=== PATIENT | female | born 1965 | race Caucasian/White ===

== ENCOUNTER 2019-08-24 19:38 | Inpatient (IN) | payer MEDICAID, OTHER ==
[2019-08-24] MEDS ORDERED: Ketorolac 30 MG/ML SDV IVPUSH ONE (20:40)
[2019-08-24] MEDS ORDERED: Sodium Chloride 0.9% 1,000 ML IV ONE ×2 (20:40)
[2019-08-24 20:43] LABS: BLOOD UREA NITROGEN,BUN 24 mg/dL (7.0-18.0); CARBON DIOXIDE,CO2 23.5 mmol/L (21.0-32.0); CHLORIDE,CL 98 mmol/L (98-107); GLUCOSE RANDOM 159 mg/dL (74-106); LIPASE 36 U/L (73-393); POTASSIUM,K 3.6 mmol/L (3.5-5.1); SODIUM,NA 134 mmol/L (136-145)
[2019-08-24] MEDS ORDERED: cefTRIAXone 1 GM in Premix Bag 1 BAG IV ONE (21:41)
--- NOTE | 2019-08-24 21:55 | CR ---
INDICATION: Shortness of breath. TECHNIQUE: PA and lateral chest x-ray. FINDINGS: Very shallow inspiration. Heart is mildly enlarged but is accentuated by the shallow inspiration and a fat pad at the cardiac apex. Pulmonary vascularity within normal limits. No focal dense infiltrate or consolidation in either lung. Chest otherwise unremarkable. Dictated by Nadeem Kimble MD @ Aug 24 2019 9:54PM Signed by Dr. Nadeem Kimble @ Aug 24 2019 9:55PM
--- NOTE | 2019-08-24 22:04 | EDM.PDOC ---
ED HPI GENERAL MEDICAL PROBLEM - General Chief Complaint: Gastrointestinal Problem Stated Complaint: fever Time Seen by Provider: 08/24/19 19:57 - History of Present Illness INITIAL COMMENTS - FREE TEXT/NARRATIVE: HPI 54-year-old morbidly obese female presents for evaluation of one week of fevers , myalgias, and generalized malaise. No recent travel, no rashes. No cough, dysuria, headache, neck stiffness, back pain. Continues to take PO well pass urine, flatus, stool baseline. M/S/F/SocHx notable for: please see HPI; remainder reviewed with patient and in chart. ROS: Negative constitutional, eye, cardiovascular, pulmonary, GI, , MSK, skin , neurologic, psychiatric, endocrine unless noted in the HPI. Exam HR 125, RR 20, BP 128/67, T 36.5C, SaO2 96% on room air. Gen: pleasant, nontoxic-appearing, resting comfortably. HEENT: NC, AT, PEERL, EOMI. Posterior oropharynx without erythema, swelling, exudate, or postnasal drip. Neck supple with full range of motion, no posterior or anterior cervical chain lymphadenopathy bilaterally. Pulm: Clear to auscultation bilaterally, normal work of breathing. Card: Regular rate and rhythm with no murmurs, rubs, or gallops. GI: ND, nontender to palpation throughout all quadrants, no focal tenderness palpation of McBurneys point, negative [place] sign, no rebound or guarding. : No right sided CVA tenderness to percussion, no left sided CVA tenderness to percussion. No suprapubic tenderness to palpation. MSK: No visible deformities, strength and tone WNL. No C, T, L spine tenderness palpation. Skin: Normal color with no rashes, petechiae, or insect bites. Neuro: alert and oriented 3, no facial asymmetry, vision and hearing WNL. Psych: Mood and affect appropriate. Labs / Imaging (pertinent): EKG: SR 101 bpm, no ST segment elevations or depressions, no LBBB. WBC 16.4, HB 13.4, lactic acid 2.5, sodium 134, potassium 3.6, glucose 159, AST 35, ALT 40, alkaline phosphatase 132, troponin <0.050. Influenza A & B negative, rapid strep negative. UA - positive nitrate, large leukocyte esterase. CXR: no acute cardiopulmonary abnormalities. MDM Previous chart, nursing note, and vitals reviewed. A: 54-year-old morbidly obese female presents for evaluation of one week of fevers, myalgias, and generalized malaise. DDx: UTI, pyelonephritis, pneumonia, meningitis, bacteremia, meningitis (viral vs bacterial)], HIV, tick borne diseases (RMSF, Lyme disease, anaplasmosis, R. parkeri), tularemia, coccidioidomycosis. Evaluation: patient with pyelonephritis, meets CMS criteria for sepsis. 1 L NS, and 1 g ceftriazone given. Chest x-ray without evidence of pneumonia. Abdominal exam benign, no features suggestive of bacteremia, meningitis, or spinal infection. Disposition: admitted for further care. Impression: pyelonephritis, sepsis (please reference below for remainder of encounter information) Critical Care Time Organ system(s): Renal Intervention: Assessment of the patient, interpretation of studies, communication related to patient care. Time: 30 minutes were spent directly related to patient care exclusive of separately billed procedures - Related Data Allergies Allergy/AdvReac Type Severity Reaction Status Date / Time sulfamethoxazole Allergy Hives Verified 08/24/19 19:39 [From Bactrim] trimethoprim [From Bactrim] Allergy Hives Verified 08/24/19 19:39 Home Meds: Home Meds Acetaminophen 325 mg PO ASDIRECTED 08/24/19 [History] Amitriptyline HCl 100 mg PO BEDTIME 08/24/19 [History] Citalopram Hydrobromide [Celexa] 40 mg PO DAILY 08/24/19 [History] Diclofenac Sodium [Voltaren] 4 gm TP ASDIRECTED 08/24/19 [History] Multivitamin [Multivitamins] 1 each PO DAILY 08/24/19 [History] Omeprazole 20 mg PO DAILY 08/24/19 [History] Pregabalin [Lyrica] 100 mg PO DAILY 08/24/19 [History] Pyridoxine HCl (Vitamin B6) [Pyridoxine HCl] 100 mg PO DAILY 08/24/19 [History] atorvaSTATin [Lipitor] 10 mg PO BEDTIME 08/24/19 [History] buPROPion HCl [Bupropion Xl] 150 mg PO DAILY 08/24/19 [History] Past Medical History HEENT History: Reports: None Cardiovascular History: Reports: None Respiratory History: Reports: None Genitourinary History: Reports: None Musculoskeletal History: Reports: None Neurological History: Reports: None Psychiatric History: Reports: Anxiety, Depression Endocrine/Metabolic History: Reports: None Hematologic History: Reports: None Immunologic History: Reports: None Oncologic (Cancer) History: Reports: None Dermatologic History: Reports: None - Infectious Disease History Infectious Disease History: Reports: Chicken Pox - Past Surgical History GI Surgical History: Reports: Bariatric Procedure, Cholecystectomy Other GI Surgeries/Procedures: gastric bypass Female Surgical History: Reports: D&C, Tubal Ligation Social & Family History - Family History Family Medical History: Noncontributory - Tobacco Use Smoking Status *Q: Never Smoker - Recreational Drug Use Recreational Drug Use: No ED ROS GENERAL - Review of Systems Review Of Systems: See Below ED EXAM, GENERAL - Physical Exam Exam: See Below Course - Vital Signs Last Recorded V/S: Last Vital Signs Temp 38.0 C 08/24/19 21:40 Pulse 115 H 08/24/19 21:40 Resp 24 H 08/24/19 21:40 BP 105/78 08/24/19 21:40 Pulse Ox 95 08/24/19 21:40 - Orders/Labs/Meds Orders: Active Orders 24 hr Category Date Time Status EKG 12 Lead [EKG Documentation Completion] [RC] STAT Care 08/24/19 20:17 Active CULTURE BLOOD [BC] Stat Lab 08/24/19 20:53 Received CULTURE BLOOD [BC] Stat Lab 08/24/19 21:14 Received CULTURE STREP A CONFIRMATION [RM] Stat Lab 08/24/19 19:42 Results STREP SCRN A RAPID W CULT CONF [RM] Stat Lab 08/24/19 19:42 Results cefTRIAXone [Rocephin in Dextrose,Iso-Osm 1 GM/50 ML] 1 Med 08/24/19 21:41 Active gm Premix Bag 1 bag IV ONETIME Blood Culture x2 Reflex Set [OM.PC] Stat Oth 08/24/19 20:36 Ordered Medication Orders Ceftriaxone Sodium/Dextrose 1 (gm/ Premix) 50 mls @ 100 mls/hr IV ONETIME ONE Stop: 08/24/19 22:10 Labs: Laboratory Tests 08/24/19 08/24/19 08/24/19 Range/Units 20:00 20:00 20:00 WBC 16.39 H (4.0-11.0) K/uL RBC 4.47 (4.30-5.90) M/uL Hgb 13.4 (12.0-16.0) g/dL Hct 39.7 (36.0-46.0) % MCV 88.8 (80.0-98.0) fL MCH 30.0 (27.0-32.0) pg MCHC 33.8 (31.0-37.0) g/dL RDW Std Deviation 45.8 (28.0-62.0) fl RDW Coeff of Aristeo 14 (11.0-15.0) % Plt Count 168 (150-400) K/uL MPV 10.20 (7.40-12.00) fL Neut % (Auto) 89.4 H (48.0-80.0) % Lymph % (Auto) 4.6 L (16.0-40.0) % [place] % (Auto) 5.9 (0.0-15.0) % Eos % (Auto) 0.0 (0.0-7.0) % Baso % (Auto) 0.1 (0.0-1.5) % Neut # (Auto) 14.7 H (1.4-5.7) K/uL Lymph # (Auto) 0.8 (0.6-2.4) K/uL [place] # (Auto) 1.0 H (0.0-0.8) K/uL Eos # (Auto) 0.0 (0.0-0.7) K/uL Baso # (Auto) 0.0 (0.0-0.1) K/uL Nucleated RBC % 0.0 /100WBC Nucleated RBCs # 0 K/uL Lactate 2.5 H* (0.20-2.00) mmol/L Sodium 134 L (136-145) mmol/L Potassium 3.6 (3.5-5.1) mmol/L Chloride 98 (98-107) mmol/L Carbon Dioxide 23.5 (21.0-32.0) mmol/L BUN 24 H (7.0-18.0) mg/dL Creatinine 1.9 H (0.6-1.0) mg/dL Est Cr Clr Drug Dosing 31.32 mL/min Estimated GFR (MDRD) 27.4 ml/min Glucose 159 H (74-106) mg/dL Calcium 7.9 L (8.5-10.1) mg/dL Total Bilirubin 0.6 (0.2-1.0) mg/dL AST 35 (15-37) IU/L ALT 40 (14-63) IU/L Alkaline Phosphatase 132 H (46-116) U/L Troponin I < 0.050 (0.000-0.056) ng/mL Total Protein 6.9 (6.4-8.2) g/dL Albumin 2.6 L (3.4-5.0) g/dL Globulin 4.3 H (2.6-4.0) g/dL Albumin/Globulin Ratio 0.6 L (0.9-1.6) Lipase 36 L (73-393) U/L Urine Color Urine Appearance Urine pH (5.0-8.0) Ur Specific [place] (1.001-1.035) Urine Protein (NEGATIVE) mg/dL Urine Glucose (UA) (NEGATIVE) mg/dL Urine Ketones (NEGATIVE) mg/dL Urine Occult Blood (NEGATIVE) Urine Nitrite (NEGATIVE) Urine Bilirubin (NEGATIVE) Urine Urobilinogen (<2.0) EU/dL Ur Leukocyte Esterase (NEGATIVE) Urine RBC (0-2/HPF) Urine WBC (0-5/HPF) Ur Epithelial Cells (NONE-FEW) Urine Bacteria (NEGATIVE) 08/24/19 Range/Units 21:20 WBC (4.0-11.0) K/uL RBC (4.30-5.90) M/uL Hgb (12.0-16.0) g/dL Hct (36.0-46.0) % MCV (80.0-98.0) fL MCH (27.0-32.0) pg MCHC (31.0-37.0) g/dL RDW Std Deviation (28.0-62.0) fl RDW Coeff of Aristeo (11.0-15.0) % Plt Count (150-400) K/uL MPV (7.40-12.00) fL Neut % (Auto) (48.0-80.0) % Lymph % (Auto) (16.0-40.0) % [place] % (Auto) (0.0-15.0) % Eos % (Auto) (0.0-7.0) % Baso % (Auto) (0.0-1.5) % Neut # (Auto) (1.4-5.7) K/uL Lymph # (Auto) (0.6-2.4) K/uL [place] # (Auto) (0.0-0.8) K/uL Eos # (Auto) (0.0-0.7) K/uL Baso # (Auto) (0.0-0.1) K/uL Nucleated RBC % /100WBC Nucleated RBCs # K/uL Lactate (0.20-2.00) mmol/L Sodium (136-145) mmol/L Potassium (3.5-5.1) mmol/L Chloride (98-107) mmol/L Carbon Dioxide (21.0-32.0) mmol/L BUN (7.0-18.0) mg/dL Creatinine (0.6-1.0) mg/dL Est Cr Clr Drug Dosing mL/min Estimated GFR (MDRD) ml/min Glucose (74-106) mg/dL Calcium (8.5-10.1) mg/dL Total Bilirubin (0.2-1.0) mg/dL AST (15-37) IU/L ALT (14-63) IU/L Alkaline Phosphatase (46-116) U/L Troponin I (0.000-0.056) ng/mL Total Protein (6.4-8.2) g/dL Albumin (3.4-5.0) g/dL Globulin (2.6-4.0) g/dL Albumin/Globulin Ratio (0.9-1.6) Lipase (73-393) U/L Urine Color YELLOW Urine Appearance CLOUDY Urine pH 6.0 (5.0-8.0) Ur Specific [place] 1.025 (1.001-1.035) Urine Protein 100 H (NEGATIVE) mg/dL Urine Glucose (UA) NEGATIVE (NEGATIVE) mg/dL Urine Ketones NEGATIVE (NEGATIVE) mg/dL Urine Occult Blood MODERATE H (NEGATIVE) Urine Nitrite POSITIVE H (NEGATIVE) Urine Bilirubin NEGATIVE (NEGATIVE) Urine Urobilinogen 1.0 (<2.0) EU/dL Ur Leukocyte Esterase LARGE H (NEGATIVE) Urine RBC 2-5 (0-2/HPF) Urine WBC 35-45 (0-5/HPF) Ur Epithelial Cells OCCASIONAL (NONE-FEW) Urine Bacteria 2+ H (NEGATIVE) Meds: Medications Generic Name Dose Route Start Last Admin Trade Name Freq PRN Reason Stop Dose Admin Ceftriaxone Sodium/Dextrose 1 50 mls @ 100 mls/hr 08/24/19 21:41 gm/ Premix IV 08/24/19 22:10 ONETIME ONE Discontinued Medications Generic Name Dose Route Start Last Admin Trade Name Freq PRN Reason Stop Dose Admin Sodium Chloride 1,000 mls @ 999 mls/hr 08/24/19 20:40 08/24/19 20:42 Normal Saline IV 08/24/19 21:40 Not Given .Bolus ONE Sodium Chloride 1,000 mls @ 1,000 mls/hr 08/24/19 20:40 08/24/19 20:52 Normal Saline IV 08/24/19 21:39 1,000 mls/hr .Bolus ONE Administration Ketorolac Tromethamine 30 mg 08/24/19 20:40 08/24/19 20:53 Toradol IVPUSH 08/24/19 20:41 30 mg ONETIME ONE Administration Departure - Departure Time of Disposition: 22:04 Disposition: Admitted As Inpatient 65 Clinical Impression: Sepsis - Discharge Information Referrals: PCP,Unknown [Primary Care Provider] - Sepsis Event Note - Evaluation Sepsis Screening Result: No Definite Risk - Focused Exam Vital Signs: Vital Signs Temp Pulse Resp BP Pulse Ox 08/24/19 21:40 38.0 C 115 H 24 H 105/78 95 08/24/19 20:37 39.4 C H 115 H 22 H 103/54 L 96 08/24/19 19:39 36.5 C 125 H 20 128/67 96 Date Exam was Performed: 08/24/19 Time Exam was Performed: 22:03 - My Orders Last 24 Hours: My Active Orders 08/24/19 20:17 EKG 12 Lead [EKG Documentation Completion] [RC] STAT 08/24/19 20:36 Blood Culture x2 Reflex Set [OM.PC] Stat 08/24/19 20:53 CULTURE BLOOD [BC] Stat 08/24/19 21:14 CULTURE BLOOD [BC] Stat 08/24/19 21:41 cefTRIAXone [Rocephin in Dextrose,Iso-Osm 1 GM/50 ML] 1 gm Premix Bag 1 bag IV ONETIME - Assessment/Plan Last 24 Hours: My Active Orders 08/24/19 20:17 EKG 12 Lead [EKG Documentation Completion] [RC] STAT 08/24/19 20:36 Blood Culture x2 Reflex Set [OM.PC] Stat 08/24/19 20:53 CULTURE BLOOD [BC] Stat 08/24/19 21:14 CULTURE BLOOD [BC] Stat 08/24/19 21:41 cefTRIAXone [Rocephin in Dextrose,Iso-Osm 1 GM/50 ML] 1 gm Premix Bag 1 bag IV ONETIME
[2019-08-24] MEDS ORDERED: Morphine 2 MG/ML SYRINGE IVPUSH PRN (23:16)
[2019-08-24] MEDS ORDERED: Albuterol/Ipratropium 3.0-0.5 MG/3 ML Neb Soln NEB PRN (23:16)
[2019-08-24] MEDS ORDERED: Ondansetron 4 MG/2 ML SDV IVPUSH PRN (23:16)
[2019-08-24] MEDS ORDERED: Sodium Chloride 0.9% 1,000 ML IV SCH (23:30)
[2019-08-25] MEDS ORDERED: Vancomycin 2 GM in Sodium Chloride 0.9% 500 ML IV SCH ×2
[2019-08-25] MEDS: Piperacillin/Tazobactam 3.375 GM in Sodium Chloride 0.9% 50 ML IV SCH ×5 (00:07→23:48)
[2019-08-25] MEDS ORDERED: Sodium Chloride 0.9% 1,000 ML IV SCH (02:00)
[2019-08-25 06:28] LABS: CARBON DIOXIDE,CO2 21.5 mmol/L (21.0-32.0); POTASSIUM,K 3.3 mmol/L (3.5-5.1)
[2019-08-25] MEDS ORDERED: Potassium Chloride 20 MEQ Tab.ER PO ONE (07:59)
--- NOTE | 2019-08-25 08:02 | PCM.HP.2 ---
<Leora Nolasco - Last Filed: 08/25/19 12:54> H&P History of Present Illness - General Date of Service: 08/25/19 Admit Problem/Dx: Admission Diagnosis/Problem Admission Diagnosis/Problem Sepsis - History of Present Illness Initial Comments - Free Text/Narative: Patient is a 54-year-old female with a significant past medical history of morbid obesity, depression/anxiety, status post gastric bypass, chronic pain: presenting after 1 week of fevers chills and dysuria. Patient presented to the ED yesterday secondary to worsening chills and pain. ED course: UA positive for nitrites and large leukocyte esterase, chest x-ray negative.White count 16 and lactate of 2.5. Patient received 1 L nasal normal saline bolus and given ceftriaxone Bedside: Patient is still complaining of pain however complaining of discomfort in her hips and her back which is a chronic issue. Mild dysuria denies any fevers, chills. - Related Data Allergies/Adverse Reactions: Allergies Allergy/AdvReac Type Severity Reaction Status Date / Time sulfamethoxazole Allergy Hives Verified 08/24/19 23:49 [From Bactrim] trimethoprim [From Bactrim] Allergy Hives Verified 08/24/19 23:49 Home Medications: Home Meds Acetaminophen 325 mg PO ASDIRECTED 08/24/19 [History] Amitriptyline HCl 100 mg PO BEDTIME 08/24/19 [History] Citalopram Hydrobromide [Celexa] 40 mg PO DAILY 08/24/19 [History] Diclofenac Sodium [Voltaren] 4 gm TP ASDIRECTED 08/24/19 [History] Multivitamin [Multivitamins] 1 each PO DAILY 08/24/19 [History] Omeprazole 20 mg PO DAILY 08/24/19 [History] Pregabalin [Lyrica] 100 mg PO DAILY 08/24/19 [History] Pyridoxine HCl (Vitamin B6) [Pyridoxine HCl] 100 mg PO DAILY 08/24/19 [History] atorvaSTATin [Lipitor] 10 mg PO BEDTIME 08/24/19 [History] buPROPion HCl [Bupropion Xl] 150 mg PO DAILY 08/24/19 [History] Acetaminophen [Tylenol] 650 mg PO Q6H PRN tablet 08/28/19 [Rx] Ertapenem [INVanz] 1 gm IV DAILY #5 adv 08/28/19 [Rx] metFORMIN [Glucophage XR] 500 mg PO DAILY 14 Days #14 tab.er 08/28/19 [Rx] Past Medical History HEENT History: Reports: None Cardiovascular History: Reports: None Respiratory History: Reports: None Genitourinary History: Reports: None Musculoskeletal History: Reports: None Neurological History: Reports: None Psychiatric History: Reports: Anxiety, Depression Endocrine/Metabolic History: Reports: None Hematologic History: Reports: None Immunologic History: Reports: None Oncologic (Cancer) History: Reports: None Dermatologic History: Reports: None - Infectious Disease History Infectious Disease History: Reports: Chicken Pox - Past Surgical History GI Surgical History: Reports: Bariatric Procedure, Cholecystectomy Other GI Surgeries/Procedures: gastric bypass Female Surgical History: Reports: D&C, Tubal Ligation Social & Family History - Family History Family Medical History: Noncontributory - Tobacco Use Smoking Status *Q: Never Smoker - Caffeine Use Caffeine Use: Reports: Soda - Recreational Drug Use Recreational Drug Use: No H&P Review of Systems - Review of Systems: Review Of Systems: See Below General: Denies: Fever, Chills, Malaise HEENT: Reports: No Symptoms Pulmonary: Reports: No Symptoms. Denies: Cough Cardiovascular: Reports: No Symptoms Gastrointestinal: Reports: Diarrhea, Nausea. Denies: Constipation, Decreased Appetite Genitourinary: Reports: Dysuria. Denies: Frequency, Urgency, Incontinence, Hematuria Musculoskeletal: Reports: Back Pain, Joint Pain Skin: Reports: No Symptoms Psychiatric: Reports: No Symptoms Neurological: Denies: Headache Exam - Exam Exam: See Below - Vital Signs Vital Signs: Last Vital Signs Temp 97.4 F 08/25/19 04:00 Pulse 111 H 08/25/19 04:00 Resp 22 H 08/25/19 04:00 BP 125/62 08/25/19 04:00 Pulse Ox 95 08/25/19 04:00 Weight: 149.8 kg - Exam General: Alert, Oriented, Cooperative HEENT: EOMI Neck: Supple, Trachea Midline Lungs: Clear to Auscultation, Normal Respiratory Effort Cardiovascular: Regular Rate, Regular Rhythm GI/Abdominal Exam: Soft, Non-Tender Extremities: Normal Inspection Skin: Warm, Dry Neuro Extensive - Mental Status: Alert, Oriented x3 (morbidly obese female ) - Patient Data Lab Results Last 24 hrs: Laboratory Results - last 24 hr 08/24/19 08/24/19 08/24/19 Range/Units 20:00 20:00 20:00 WBC 16.39 H (4.0-11.0) K/uL RBC 4.47 (4.30-5.90) M/uL Hgb 13.4 (12.0-16.0) g/dL Hct 39.7 (36.0-46.0) % MCV 88.8 (80.0-98.0) fL MCH 30.0 (27.0-32.0) pg MCHC 33.8 (31.0-37.0) g/dL RDW Std Deviation 45.8 (28.0-62.0) fl RDW Coeff of Aristeo 14 (11.0-15.0) % Plt Count 168 (150-400) K/uL MPV 10.20 (7.40-12.00) fL Neut % (Auto) 89.4 H (48.0-80.0) % Lymph % (Auto) 4.6 L (16.0-40.0) % Mower % (Auto) 5.9 (0.0-15.0) % Eos % (Auto) 0.0 (0.0-7.0) % Baso % (Auto) 0.1 (0.0-1.5) % Neut # (Auto) 14.7 H (1.4-5.7) K/uL Lymph # (Auto) 0.8 (0.6-2.4) K/uL Mower # (Auto) 1.0 H (0.0-0.8) K/uL Eos # (Auto) 0.0 (0.0-0.7) K/uL Baso # (Auto) 0.0 (0.0-0.1) K/uL Nucleated RBC % 0.0 /100WBC Nucleated RBCs # 0 K/uL Lactate 2.5 H* (0.20-2.00) mmol/L Sodium 134 L (136-145) mmol/L Potassium 3.6 (3.5-5.1) mmol/L Chloride 98 (98-107) mmol/L Carbon Dioxide 23.5 (21.0-32.0) mmol/L BUN 24 H (7.0-18.0) mg/dL Creatinine 1.9 H (0.6-1.0) mg/dL Est Cr Clr Drug Dosing 31.32 mL/min Estimated GFR (MDRD) 27.4 ml/min Glucose 159 H (74-106) mg/dL Calcium 7.9 L (8.5-10.1) mg/dL Phosphorus (2.6-4.7) mg/dL Magnesium (1.8-2.4) mg/dL Total Bilirubin 0.6 (0.2-1.0) mg/dL AST 35 (15-37) IU/L ALT 40 (14-63) IU/L Alkaline Phosphatase 132 H (46-116) U/L Troponin I < 0.050 (0.000-0.056) ng/mL Total Protein 6.9 (6.4-8.2) g/dL Albumin 2.6 L (3.4-5.0) g/dL Globulin 4.3 H (2.6-4.0) g/dL Albumin/Globulin Ratio 0.6 L (0.9-1.6) Lipase 36 L (73-393) U/L Urine Color Urine Appearance Urine pH (5.0-8.0) Ur Specific [place] (1.001-1.035) Urine Protein (NEGATIVE) mg/dL Urine Glucose (UA) (NEGATIVE) mg/dL Urine Ketones (NEGATIVE) mg/dL Urine Occult Blood (NEGATIVE) Urine Nitrite (NEGATIVE) Urine Bilirubin (NEGATIVE) Urine Urobilinogen (<2.0) EU/dL Ur Leukocyte Esterase (NEGATIVE) Urine RBC (0-2/HPF) Urine WBC (0-5/HPF) Ur Epithelial Cells (NONE-FEW) Urine Bacteria (NEGATIVE) 08/24/19 08/25/19 08/25/19 Range/Units 21:20 00:20 06:00 WBC 7.88 (4.0-11.0) K/uL RBC 4.45 (4.30-5.90) M/uL Hgb 12.9 (12.0-16.0) g/dL Hct 39.6 (36.0-46.0) % MCV 89.0 (80.0-98.0) fL MCH 29.0 (27.0-32.0) pg MCHC 32.6 (31.0-37.0) g/dL RDW Std Deviation 46.3 (28.0-62.0) fl RDW Coeff of Aristeo 14 (11.0-15.0) % Plt Count 160 (150-400) K/uL MPV 10.20 (7.40-12.00) fL Neut % (Auto) 92.5 H (48.0-80.0) % Lymph % (Auto) 6.1 L (16.0-40.0) % Mower % (Auto) 1.3 (0.0-15.0) % Eos % (Auto) 0.0 (0.0-7.0) % Baso % (Auto) 0.1 (0.0-1.5) % Neut # (Auto) 7.3 H (1.4-5.7) K/uL Lymph # (Auto) 0.5 L (0.6-2.4) K/uL Mower # (Auto) 0.1 (0.0-0.8) K/uL Eos # (Auto) 0.0 (0.0-0.7) K/uL Baso # (Auto) 0.0 (0.0-0.1) K/uL Nucleated RBC % 0.0 /100WBC Nucleated RBCs # 0 K/uL Lactate 1.5 (0.20-2.00) mmol/L Sodium (136-145) mmol/L Potassium (3.5-5.1) mmol/L Chloride (98-107) mmol/L Carbon Dioxide (21.0-32.0) mmol/L BUN (7.0-18.0) mg/dL Creatinine (0.6-1.0) mg/dL Est Cr Clr Drug Dosing mL/min Estimated GFR (MDRD) ml/min Glucose (74-106) mg/dL Calcium (8.5-10.1) mg/dL Phosphorus (2.6-4.7) mg/dL Magnesium (1.8-2.4) mg/dL Total Bilirubin (0.2-1.0) mg/dL AST (15-37) IU/L ALT (14-63) IU/L Alkaline Phosphatase (46-116) U/L Troponin I (0.000-0.056) ng/mL Total Protein (6.4-8.2) g/dL Albumin (3.4-5.0) g/dL Globulin (2.6-4.0) g/dL Albumin/Globulin Ratio (0.9-1.6) Lipase (73-393) U/L Urine Color YELLOW Urine Appearance CLOUDY Urine pH 6.0 (5.0-8.0) Ur Specific [place] 1.025 (1.001-1.035) Urine Protein 100 H (NEGATIVE) mg/dL Urine Glucose (UA) NEGATIVE (NEGATIVE) mg/dL Urine Ketones NEGATIVE (NEGATIVE) mg/dL Urine Occult Blood MODERATE H (NEGATIVE) Urine Nitrite POSITIVE H (NEGATIVE) Urine Bilirubin NEGATIVE (NEGATIVE) Urine Urobilinogen 1.0 (<2.0) EU/dL Ur Leukocyte Esterase LARGE H (NEGATIVE) Urine RBC 2-5 (0-2/HPF) Urine WBC 35-45 (0-5/HPF) Ur Epithelial Cells OCCASIONAL (NONE-FEW) Urine Bacteria 2+ H (NEGATIVE) 08/25/19 Range/Units 06:00 WBC (4.0-11.0) K/uL RBC (4.30-5.90) M/uL Hgb (12.0-16.0) g/dL Hct (36.0-46.0) % MCV (80.0-98.0) fL MCH (27.0-32.0) pg MCHC (31.0-37.0) g/dL RDW Std Deviation (28.0-62.0) fl RDW Coeff of Aristeo (11.0-15.0) % Plt Count (150-400) K/uL MPV (7.40-12.00) fL Neut % (Auto) (48.0-80.0) % Lymph % (Auto) (16.0-40.0) % Mower % (Auto) (0.0-15.0) % Eos % (Auto) (0.0-7.0) % Baso % (Auto) (0.0-1.5) % Neut # (Auto) (1.4-5.7) K/uL Lymph # (Auto) (0.6-2.4) K/uL Mower # (Auto) (0.0-0.8) K/uL Eos # (Auto) (0.0-0.7) K/uL Baso # (Auto) (0.0-0.1) K/uL Nucleated RBC % /100WBC Nucleated RBCs # K/uL Lactate (0.20-2.00) mmol/L Sodium 138 (136-145) mmol/L Potassium 3.3 L (3.5-5.1) mmol/L Chloride 102 (98-107) mmol/L Carbon Dioxide 21.5 (21.0-32.0) mmol/L BUN 27 H (7.0-18.0) mg/dL Creatinine 2.0 H (0.6-1.0) mg/dL Est Cr Clr Drug Dosing 29.75 mL/min Estimated GFR (MDRD) 25.9 ml/min Glucose 118 H (74-106) mg/dL Calcium 7.0 L (8.5-10.1) mg/dL Phosphorus 2.0 L (2.6-4.7) mg/dL Magnesium 1.7 L (1.8-2.4) mg/dL Total Bilirubin (0.2-1.0) mg/dL AST (15-37) IU/L ALT (14-63) IU/L Alkaline Phosphatase (46-116) U/L Troponin I (0.000-0.056) ng/mL Total Protein (6.4-8.2) g/dL Albumin (3.4-5.0) g/dL Globulin (2.6-4.0) g/dL Albumin/Globulin Ratio (0.9-1.6) Lipase (73-393) U/L Urine Color Urine Appearance Urine pH (5.0-8.0) Ur Specific [place] (1.001-1.035) Urine Protein (NEGATIVE) mg/dL Urine Glucose (UA) (NEGATIVE) mg/dL Urine Ketones (NEGATIVE) mg/dL Urine Occult Blood (NEGATIVE) Urine Nitrite (NEGATIVE) Urine Bilirubin (NEGATIVE) Urine Urobilinogen (<2.0) EU/dL Ur Leukocyte Esterase (NEGATIVE) Urine RBC (0-2/HPF) Urine WBC (0-5/HPF) Ur Epithelial Cells (NONE-FEW) Urine Bacteria (NEGATIVE) Result Diagrams: 08/25/19 06:00 08/25/19 06:00 Shaquille Results Last 24 hrs: Microbiology 08/24/19 19:42 Influenza Type A Antigen Screen - Final Nasopharyngeal Swab NEGATIVE INFLUENZA A VIRUS AG REFERENCE RANGE: NEGATIVE Influenza Type B Antigen Screen - Final NEGATIVE INFLUENZA B VIRUS AG REFERENCE RANGE: NEGATIVE 08/24/19 19:42 Group A Streptococcus Rapid Screen - Final Throat NEGATIVE STREP A SCREEN REFERENCE RANGE: NEGATIVE Sepsis Event Note - Evaluation Sepsis Screening Result: Severe Sepsis Risk - Focused Exam Vital Signs: Vital Signs Temp Pulse Resp BP Pulse Ox Pulse Ox 08/25/19 04:00 97.4 F 111 H 22 H 125/62 95 08/25/19 01:57 95 08/24/19 23:40 96.8 F 99 20 116/64 95 08/24/19 21:40 100.4 F 115 H 24 H 105/78 95 08/24/19 20:37 103 F H 115 H 22 H 103/54 L 96 Date Exam was Performed: 08/25/19 Time Exam was Performed: 12:54 Problem List Initiated/Reviewed/Updated: Yes Orders Last 24hrs: Active Orders 24 hr Category Date Time Status Admission Status [Patient Status] [ADT] Stat ADT 08/24/19 22:14 Active Ambulate [RC] ASDIRECTED Care 08/24/19 23:16 Active Antiembolic Devices [RC] PER UNIT ROUTINE Care 08/24/19 23:18 Active Oxygen Therapy [RC] PRN Care 08/24/19 23:16 Active RT Aerosol Therapy [RC] ASDIRECTED Care 08/24/19 23:20 Active Telemetry Monitoring [Cardiac Monitoring] [RC] Q8H Care 08/24/19 23:43 Active VTE/DVT Education [RC] PER UNIT ROUTINE Care 08/24/19 23:16 Active Vital Signs [RC] Q4H Care 08/24/19 23:16 Active Heart Healthy Diet [DIET] Diet 08/25/19 Breakfast Active CULTURE BLOOD [BC] Stat Lab 08/24/19 20:53 Received CULTURE BLOOD [BC] Stat Lab 08/24/19 21:14 Received CULTURE STREP A CONFIRMATION [RM] Stat Lab 08/24/19 19:42 Results CULTURE URINE [RM] Routine Lab 08/24/19 21:20 Received STREP SCRN A RAPID W CULT CONF [RM] Stat Lab 08/24/19 19:42 Results VANCOMYCIN TROUGH [CHEM] Timed Lab 08/26/19 11:30 Ordered Albuterol/Ipratropium [DuoNeb 3.0-0.5 MG/3 ML] Med 08/24/19 23:16 Active 3 ml NEB Q4HRRT PRN Morphine Med 08/24/19 23:16 Active 1 mg IVPUSH Q4H PRN Ondansetron [Zofran] Med 08/24/19 23:16 Active 4 mg IVPUSH Q4H PRN Piperacillin/Tazobactam [Piperacil-Tazobact] 3.375 gm Med 08/24/19 23:00 Active Sodium Chloride 0.9% [Normal Saline] 50 ml IV Q8H Potassium Chloride [Klor-Con M20] Med 08/25/19 07:59 Once 20 meq PO ONETIME ONE Sodium Chloride 0.9% [Normal Saline] 1,000 ml Med 08/25/19 02:00 Active IV ASDIRECTED Sodium Chloride 0.9% [Normal Saline] 1,000 ml Med 08/24/19 23:30 Active Sodium Chloride 0.9% [Normal Saline] 1,000 ml IV BOLUS Vancomycin 2 gm Med 08/25/19 00:00 Active Sodium Chloride 0.9% [Normal Saline] 500 ml IV Q12H Blood Culture x2 Reflex Set [OM.PC] Stat Oth 08/24/19 20:36 Ordered Sequential Compression Device [OM.PC] Per Unit Routine Oth 08/24/19 23:17 Ordered Medication Orders Albuterol/Ipratropium (Duoneb 3.0-0.5 Mg/3 Ml) 3 ml NEB Q4HRRT PRN PRN Reason: Shortness Of Breath/wheezing Sodium Chloride/ Sodium (Chloride) 2,000 mls @ 999 mls/hr IV BOLUS [facility] Last Admin: 08/25/19 00:06 Dose: 999 mls/hr Sodium Chloride (Normal Saline) 1,000 mls @ 125 mls/hr IV ASDIRECTED [facility] Last Admin: 08/25/19 03:30 Dose: 125 mls/hr Piperacillin Sod/Tazobactam (Sod 3.375 gm/ Sodium Chloride) 50 mls @ 100 mls/ hr IV Q8H [facility] Last Admin: 08/25/19 06:21 Dose: 100 mls/hr Infusion: 08/25/19 00:37 Dose: 100 mls/hr Admin: 08/25/19 00:07 Dose: 100 mls/hr Vancomycin HCl 2 gm/ Sodium (Chloride) 500 mls @ 333.333 mls/hr IV Q12H [facility] Last Admin: 08/25/19 01:47 Dose: 333.333 mls/hr Morphine Sulfate (Morphine) 1 mg IVPUSH Q4H PRN PRN Reason: Pain (severe 7-10) Stop: 08/25/19 23:18 Ondansetron HCl (Zofran) 4 mg IVPUSH Q4H PRN PRN Reason: Nausea/Vomiting Potassium Chloride (Klor-Con M20) 20 meq PO ONETIME ONE Stop: 08/25/19 08:00 Assessment/Plan Comment:: Assessment: 1. Sepsis in the setting of UTI w /MAYLIN Gram - Rods 2. Morbid obesity past medical history of anxiety, depression, hypercholesterolemia 3.. Status post cholecystectomy/gastric bypass Plan Admit to observation. Full code. DVT prophylaxis: Heparin GI prophylaxis pantoprazole 40 daily 1. Continue Zosyn; leukocytosis resolved. Lactate 1.5. Continue to monitor. discontinue IVF for now 2. Past medical history: Continue home medications 3. Hypokalemia: 20 K given <Erik Crocker - Last Filed: 09/01/19 20:39> H&P History of Present Illness - General Admit Problem/Dx: Admission Diagnosis/Problem Admission Diagnosis/Problem Sepsis Generalized Pain Score (Numeric/FACES): 8 Headache Pain Score (Numeric/FACES): 4 Exam - Vital Signs Vital Signs: Last Vital Signs Temp 35.9 C 08/28/19 11:42 Pulse 74 08/28/19 11:42 Resp 16 08/28/19 11:42 BP 102/74 08/28/19 11:42 Pulse Ox 95 08/28/19 11:42 - Patient Data Result Diagrams: 08/28/19 05:44 08/28/19 05:44 Shaquille Results Last 24 hrs: Microbiology 08/27/19 14:50 Stool Culture - Final Stool / Feces YEAST Shiga Toxin I & II - Final 08/27/19 06:21 Aerobic Blood Culture - Final Blood - Venous - Lab Draw NO GROWTH AFTER 5 DAYS Anaerobic Blood Culture - Final NO GROWTH AFTER 5 DAYS 08/27/19 06:10 Aerobic Blood Culture - Final Blood - Venous NO GROWTH AFTER 5 DAYS Anaerobic Blood Culture - Final NO GROWTH AFTER 5 DAYS Assessment/Plan Comment:: I performed a history and physical exam of the patient and discussed management with resident. I have reviewed the residents note and agree with documented findings and plan unless otherwise specified in my note.
[2019-08-25] MEDS: Heparin Sodium 5,000 Units/ML Vial SUBCUT SCH ×2 (11:39→18:19)
[2019-08-25] MEDS ORDERED: DICLOFENAC SODIUM 4 GM TOP SCH (13:00)
[2019-08-25] MEDS ORDERED: Acetaminophen 325 MG Tab PO SCH (13:00)
[2019-08-25] MEDS: Citalopram 20 MG Tab PO SCH (13:50)
[2019-08-25] MEDS: Omeprazole 20 MG Cap.CR PO SCH (13:50)
[2019-08-25] MEDS: Acetaminophen 325 MG Tab PO PRN (20:27)
[2019-08-25] MEDS: Amitriptyline 25 MG Tab PO SCH (20:27)
[2019-08-25] MEDS: atorvaSTATin 10 MG Tab PO SCH (20:28)
[2019-08-25] MEDS ORDERED: cefTRIAXone 1 GM in Premix Bag 1 BAG IV SCH (21:00)
[2019-08-25] MEDS ORDERED: Sodium Chloride 0.9% 1,000 ML IV ONE (21:48)
[2019-08-25] MEDS: Sodium Chloride 0.9% 1,000 ML IV SCH (23:41)
[2019-08-26] MEDS ORDERED: Morphine 2 MG/ML SYRINGE IVPUSH PRN (00:37)
[2019-08-26] MEDS: Heparin Sodium 5,000 Units/ML Vial SUBCUT SCH ×3 (02:34→18:48)
[2019-08-26] MEDS: Acetaminophen 325 MG Tab PO PRN ×2 (02:35→17:20)
[2019-08-26] MEDS ORDERED: Piperacillin/Tazobactam 4.5 GM in Sodium Chloride 0.9% 100 ML IV SCH (06:00)
[2019-08-26 06:35] LABS: CARBON DIOXIDE,CO2 24.3 mmol/L (21.0-32.0); POTASSIUM,K 3.8 mmol/L (3.5-5.1)
[2019-08-26] MEDS: buPROPion 150 MG Tab.ER PO SCH (08:31)
[2019-08-26] MEDS: Pregabalin 50 MG Cap PO SCH (08:31)
[2019-08-26] MEDS: Omeprazole 20 MG Cap.CR PO SCH (08:31)
[2019-08-26] MEDS: Citalopram 20 MG Tab PO SCH (08:31)
[2019-08-26] MEDS: Vitamin B6-pyridOXINE 50 MG Tab PO SCH (08:32)
[2019-08-26] MEDS: Sodium Chloride 0.9% 1,000 ML IV SCH ×2 (08:38→17:19)
[2019-08-26] MEDS ORDERED: Meropenem Premix 1 GM in Premix Bag 1 BAG IV SCH (09:15)
--- NOTE | 2019-08-26 09:27 | CT ---
CT abdomen and pelvis Technique: Multiple axial sections were obtained from above the dome of the diaphragm inferiorly through the pubic symphysis. Intravenous and oral contrast not utilized. Comparison: No prior abdominal imaging. Findings: Visualized lung bases show nothing acute. Liver shows no focal parenchymal abnormality. Liver shows diminished density compatible with fatty infiltration. Spleen appears within normal limits. Small hiatal hernia is noted. Previous gastric surgery is present. Adrenal glands show no nodule. Pancreas is within normal limits. Surgical clips are seen from prior cholecystectomy. Aorta shows no aneurysm. Kidneys show no abnormal calcifications. No discrete hydronephrosis or mass is seen within either kidney. No pelvic mass or adenopathy is noted. IUD is present within the uterus. Mild sigmoid diverticulosis is seen without inflammatory change of diverticulitis. Appendix is not visualized with certainty. Bone window settings were reviewed which shows slight degenerative spurring within the spine. Degenerative change is seen within both hips with joint space narrowing and subchondral cysts and osteophytes. No acute osseous finding is seen. Impression: 1. Findings as noted above. 2. Nothing acute is appreciated. Diagnostic code #2 This report was dictated in [place] Standard Time
[2019-08-26] MEDS: Meropenem Premix 1 GM in Premix Bag 1 BAG IV SCH ×2 (10:03→21:22)
[2019-08-26] MEDS ORDERED: Sodium Chloride 0.9% 500 ML IV SCH (11:30)
--- NOTE | 2019-08-26 12:54 | PCM.PN ---
<Leora Nolasco - Last Filed: 08/26/19 13:36> - General Info Date of Service: 08/26/19 Subjective Update: Denies any acute issues this AM; co mild thirst; denies any abd. pain/ Functional Status: Reports: Pain Controlled - Review of Systems General: Denies: Fever, Weakness, Malaise, Chills HEENT: Reports: No Symptoms Pulmonary: Reports: No Symptoms Cardiovascular: Reports: No Symptoms Gastrointestinal: Denies: Abdominal Pain, Constipation, Diarrhea, Nausea, Vomiting Genitourinary: Reports: No Symptoms Musculoskeletal: Reports: No Symptoms Neurological: Denies: Dizziness, Headache - Patient Data Vitals - Most Recent: Last Vital Signs Temp 97.5 F 08/26/19 07:48 Pulse 83 08/26/19 07:48 Resp 16 08/26/19 07:48 BP 101/57 L 08/26/19 07:48 Pulse Ox 97 08/26/19 07:48 Weight - Most Recent: 149.8 kg I&O - Last 24 Hours: Intake & Output 08/25/19 08/26/19 08/26/19 22:59 06:59 14:59 Intake Total 1545 3524 50 Output Total 680 600 Balance 865 2924 50 Lab Results Last 24 Hours: Laboratory Results - last 24 hr 08/26/19 08/26/19 Range/Units 06:01 06:01 WBC 16.40 H (4.0-11.0) K/uL RBC 3.79 L (4.30-5.90) M/uL Hgb 11.1 L (12.0-16.0) g/dL Hct 33.7 L (36.0-46.0) % MCV 88.9 (80.0-98.0) fL MCH 29.3 (27.0-32.0) pg MCHC 32.9 (31.0-37.0) g/dL RDW Std Deviation 47.7 (28.0-62.0) fl RDW Coeff of Aristeo 15 (11.0-15.0) % Plt Count 180 (150-400) K/uL MPV 10.30 (7.40-12.00) fL Neut % (Auto) 85.1 H (48.0-80.0) % Lymph % (Auto) 7.0 L (16.0-40.0) % Woodson % (Auto) 6.9 (0.0-15.0) % Eos % (Auto) 0.8 (0.0-7.0) % Baso % (Auto) 0.2 (0.0-1.5) % Neut # (Auto) 14.0 H (1.4-5.7) K/uL Lymph # (Auto) 1.1 (0.6-2.4) K/uL Woodson # (Auto) 1.1 H (0.0-0.8) K/uL Eos # (Auto) 0.1 (0.0-0.7) K/uL Baso # (Auto) 0.0 (0.0-0.1) K/uL Nucleated RBC % 0.0 /100WBC Nucleated RBCs # 0 K/uL Sodium 140 (136-145) mmol/L Potassium 3.8 (3.5-5.1) mmol/L Chloride 106 (98-107) mmol/L Carbon Dioxide 24.3 (21.0-32.0) mmol/L BUN 24 H (7.0-18.0) mg/dL Creatinine 1.8 H (0.6-1.0) mg/dL Est Cr Clr Drug Dosing 33.06 mL/min Estimated GFR (MDRD) 29.2 ml/min Glucose 153 H (74-106) mg/dL Calcium 7.3 L (8.5-10.1) mg/dL Total Bilirubin 0.5 (0.2-1.0) mg/dL AST 49 H (15-37) IU/L ALT 37 (14-63) IU/L Alkaline Phosphatase 103 (46-116) U/L Total Protein 5.7 L (6.4-8.2) g/dL Albumin 1.9 L (3.4-5.0) g/dL Globulin 3.8 (2.6-4.0) g/dL Albumin/Globulin Ratio 0.5 L (0.9-1.6) Shaquille Results Last 24 Hours: Microbiology 08/25/19 11:15 Aerobic Blood Culture - Preliminary Blood - Venous NO GROWTH AFTER 1 DAY Anaerobic Blood Culture - Preliminary 08/25/19 11:25 Aerobic Blood Culture - Preliminary Blood - Venous - Lab Draw Anaerobic Blood Culture - Preliminary 08/24/19 21:14 Aerobic Blood Culture - Preliminary Blood - Venous - Lab Draw NO GROWTH AFTER 1 DAY Anaerobic Blood Culture - Preliminary 08/24/19 20:53 Aerobic Blood Culture - Preliminary Blood - Venous Anaerobic Blood Culture - Preliminary 08/26/19 02:30 Anaerobic Blood Culture - Final Blood - Venous - Lab Draw Med Orders - Current: Current Medications Acetaminophen (Tylenol) 650 mg PO Q6H PRN PRN Reason: Pain Last Admin: 08/26/19 02:35 Dose: 650 mg Albuterol/Ipratropium (Duoneb 3.0-0.5 Mg/3 Ml) 3 ml NEB Q4HRRT PRN PRN Reason: Shortness Of Breath/wheezing Amitriptyline HCl (Elavil) 100 mg PO BEDTIME [facility] Last Admin: 08/25/19 20:27 Dose: 100 mg Atorvastatin Calcium (Lipitor) 10 mg PO BEDTIME [facility] Last Admin: 08/25/19 20:28 Dose: 10 mg Bupropion HCl (Wellbutrin Xl) 150 mg PO DAILY [facility] Last Admin: 08/26/19 08:31 Dose: 150 mg Citalopram Hydrobromide (Celexa) 40 mg PO DAILY [facility] Last Admin: 08/26/19 08:31 Dose: 40 mg Heparin Sodium (Porcine) (Heparin Sodium) 5,000 units SUBCUT Q8H [facility] Last Admin: 08/26/19 10:03 Dose: 5,000 units Sodium Chloride (Normal Saline) 1,000 mls @ 125 mls/hr IV ASDIRECTED [facility] Last Admin: 08/26/19 08:38 Dose: 125 mls/hr Meropenem/Sodium Chloride 1 gm (/ Premix) 50 mls @ 100 mls/hr IV Q12H [facility] Last Admin: 08/26/19 10:03 Dose: 100 mls/hr Morphine Sulfate (Morphine) 2 mg IVPUSH Q2H PRN PRN Reason: Pain (severe 7-10) Omeprazole (Omeprazole) 20 mg PO DAILY [facility] Last Admin: 08/26/19 08:31 Dose: 20 mg Ondansetron HCl (Zofran) 4 mg IVPUSH Q4H PRN PRN Reason: Nausea/Vomiting Diclofenac Sodium 4 (Gm)) 0 each TOP ASDIRECTED [facility] Pregabalin (Lyrica) 100 mg PO DAILY [facility] Last Admin: 08/26/19 08:31 Dose: 100 mg Pyridoxine HCl (Vitamin B6-Pyridoxine) 100 mg PO DAILY [facility] Last Admin: 08/26/19 08:32 Dose: 100 mg Discontinued Medications Acetaminophen (Tylenol) 325 mg PO ASDIRECTED [facility] Sodium Chloride (Normal Saline) 1,000 mls @ 999 mls/hr IV .Bolus ONE Stop: 08/24/19 21:40 Last Admin: 08/24/19 20:42 Dose: Not Given Sodium Chloride (Normal Saline) 1,000 mls @ 1,000 mls/hr IV .Bolus ONE Stop: 08/24/19 21:39 Last Admin: 08/24/19 20:52 Dose: 1,000 mls/hr Ceftriaxone Sodium/Dextrose 1 (gm/ Premix) 50 mls @ 100 mls/hr IV ONETIME ONE Stop: 08/24/19 22:10 Last Admin: 08/24/19 22:10 Dose: 100 mls/hr Sodium Chloride (Normal Saline) 1,000 mls @ 999 mls/hr IV BOLUS [facility] Ceftriaxone Sodium/Dextrose 1 (gm/ Premix) 50 mls @ 100 mls/hr IV Q24H [facility] Sodium Chloride/ Sodium (Chloride) 2,000 mls @ 999 mls/hr IV BOLUS [facility] Last Admin: 08/25/19 00:06 Dose: 999 mls/hr Sodium Chloride (Normal Saline) 1,000 mls @ 125 mls/hr IV ASDIRECTED [facility] Last Admin: 08/25/19 03:30 Dose: 125 mls/hr Piperacillin Sod/Tazobactam (Sod 3.375 gm/ Sodium Chloride) 50 mls @ 100 mls/ hr IV Q8H [facility] Last Admin: 08/25/19 06:21 Dose: 100 mls/hr Vancomycin HCl 2 gm/ Sodium (Chloride) 500 mls @ 333.333 mls/hr IV Q12H [facility] Last Admin: 08/25/19 01:47 Dose: 333.333 mls/hr Piperacillin Sod/Tazobactam (Sod 3.375 gm/ Sodium Chloride) 50 mls @ 100 mls/ hr IV Q6H [facility] Last Admin: 08/25/19 23:48 Dose: 100 mls/hr Sodium Chloride (Normal Saline) 1,000 mls @ 999 mls/hr IV .Bolus ONE Stop: 08/25/19 22:48 Last Admin: 08/25/19 21:53 Dose: 999 mls/hr Piperacillin Sod/Tazobactam (Sod 4.5 gm/ Sodium Chloride) 100 mls @ 100 mls/hr IV Q6H [facility] Last Admin: 08/26/19 06:06 Dose: 100 mls/hr Meropenem/Sodium Chloride 1 gm (/ Premix) 50 mls @ 100 mls/hr IV Q8H [facility] Last Admin: 08/26/19 09:52 Dose: Not Given Sodium Chloride (Normal Saline) 500 mls @ 999 mls/hr IV .BOLUS [facility] Last Admin: 08/26/19 11:34 Dose: 999 mls/hr Ketorolac Tromethamine (Toradol) 30 mg IVPUSH ONETIME ONE Stop: 08/24/19 20:41 Last Admin: 08/24/19 20:53 Dose: 30 mg Morphine Sulfate (Morphine) 1 mg IVPUSH Q4H PRN PRN Reason: Pain (severe 7-10) Stop: 08/25/19 23:18 Potassium Chloride (Klor-Con M20) 20 meq PO ONETIME ONE Stop: 08/25/19 08:00 Last Admin: 08/25/19 08:18 Dose: 20 meq Vancomycin HCl (Pharmacy To Dose - Vancomycin) 1 dose .XX ASDIRECTED [facility] Stop: 08/24/19 23:31 - Exam General: Alert, Oriented HEENT: EOMI, Mucous Membr. Moist/[place] Neck: Supple Lungs: Clear to Auscultation, Normal Respiratory Effort Cardiovascular: Regular Rate, Regular Rhythm GI/Abdominal Exam: Soft, Non-Tender, No Organomegaly Back Exam: Full Range of Motion Skin: Warm, Dry Neurological: No New Focal Deficit Psy/Mental Status: Alert Sepsis Event Note - Evaluation Sepsis Screening Result: No Definite Risk - Focused Exam Vital Signs: Vital Signs Temp Pulse Resp BP Pulse Ox Pulse Ox 08/26/19 07:48 97.5 F 83 16 101/57 L 97 08/26/19 04:00 97.8 F 86 18 106/59 L 94 L 08/26/19 01:00 97 Date Exam was Performed: 08/26/19 Time Exam was Performed: 13:36 - Problem List Review Problem List Initiated/Reviewed/Updated: Yes - My Orders Last 24 Hours: My Active Orders 08/25/19 13:00 Citalopram [Celexa] 40 mg PO DAILY Omeprazole 20 mg PO DAILY Patient's Own Medication [Ptom] 0 each TOP ASDIRECTED 08/25/19 20:00 Acetaminophen [Tylenol] 650 mg PO Q6H PRN 08/25/19 21:00 Amitriptyline [Elavil] 100 mg PO BEDTIME atorvaSTATin [Lipitor] 10 mg PO BEDTIME 08/26/19 09:00 Pregabalin [Lyrica] 100 mg PO DAILY Vitamin B6-pyridOXINE 100 mg PO DAILY buPROPion [Wellbutrin XL] 150 mg PO DAILY 08/26/19 09:02 May Shower [RC] ASDIRECTED - Plan Plan:: Assessment: 1. Sepsis in the setting of UTI w /MAYLIN Gram - Rods ESBL 2. Morbid obesity past medical history of anxiety, depression, hypercholesterolemia 3.. Status post cholecystectomy/gastric bypass Plan Admit to observation. Full code. DVT prophylaxis: Heparin GI prophylaxis pantoprazole 40 daily 1. will continue pt. on Meropenem secondary to resistance pattern; repeat BC tomorrow in AM; pt. may require PICC line on discharge for further abx. treatment; continue to monitor 2. Past medical history: Continue home medications 3. Hypokalemia: 20 K given <Erik Crocker - Last Filed: 09/01/19 20:39> - Patient Data Vitals - Most Recent: Last Vital Signs Temp 35.9 C 08/28/19 11:42 Pulse 74 08/28/19 11:42 Resp 16 08/28/19 11:42 BP 102/74 08/28/19 11:42 Pulse Ox 95 08/28/19 11:42 Shaquille Results Last 24 Hours: Microbiology 08/27/19 14:50 Stool Culture - Final Stool / Feces YEAST Shiga Toxin I & II - Final 08/27/19 06:21 Aerobic Blood Culture - Final Blood - Venous - Lab Draw NO GROWTH AFTER 5 DAYS Anaerobic Blood Culture - Final NO GROWTH AFTER 5 DAYS 08/27/19 06:10 Aerobic Blood Culture - Final Blood - Venous NO GROWTH AFTER 5 DAYS Anaerobic Blood Culture - Final NO GROWTH AFTER 5 DAYS Med Orders - Current: Current Medications Discontinued Medications Acetaminophen (Tylenol) 325 mg PO ASDIRECTED [facility] Acetaminophen (Tylenol) 650 mg PO Q6H PRN PRN Reason: Pain Last Admin: 08/28/19 08:49 Dose: 650 mg Albuterol/Ipratropium (Duoneb 3.0-0.5 Mg/3 Ml) 3 ml NEB Q4HRRT PRN PRN Reason: Shortness Of Breath/wheezing Last Admin: 08/28/19 06:13 Dose: 3 ml Amitriptyline HCl (Elavil) 100 mg PO BEDTIME [facility] Last Admin: 08/27/19 20:55 Dose: 100 mg Atorvastatin Calcium (Lipitor) 10 mg PO BEDTIME [facility] Last Admin: 08/27/19 20:55 Dose: 10 mg Bupropion HCl (Wellbutrin Xl) 150 mg PO DAILY [facility] Last Admin: 08/28/19 08:48 Dose: 150 mg Citalopram Hydrobromide (Celexa) 40 mg PO DAILY [facility] Last Admin: 08/28/19 08:48 Dose: 40 mg Heparin Sodium (Porcine) (Heparin Sodium) 5,000 units SUBCUT Q8H [facility] Last Admin: 08/28/19 10:44 Dose: 5,000 units Sodium Chloride (Normal Saline) 1,000 mls @ 999 mls/hr IV .Bolus ONE Stop: 08/24/19 21:40 Last Admin: 08/24/19 20:42 Dose: Not Given Sodium Chloride (Normal Saline) 1,000 mls @ 1,000 mls/hr IV .Bolus ONE Stop: 08/24/19 21:39 Last Admin: 08/24/19 20:52 Dose: 1,000 mls/hr Ceftriaxone Sodium/Dextrose 1 (gm/ Premix) 50 mls @ 100 mls/hr IV ONETIME ONE Stop: 08/24/19 22:10 Last Admin: 08/24/19 22:10 Dose: 100 mls/hr Sodium Chloride (Normal Saline) 1,000 mls @ 999 mls/hr IV BOLUS [facility] Ceftriaxone Sodium/Dextrose 1 (gm/ Premix) 50 mls @ 100 mls/hr IV Q24H [facility] Sodium Chloride/ Sodium (Chloride) 2,000 mls @ 999 mls/hr IV BOLUS [facility] Last Admin: 08/25/19 00:06 Dose: 999 mls/hr Sodium Chloride (Normal Saline) 1,000 mls @ 125 mls/hr IV ASDIRECTED [facility] Last Admin: 08/25/19 03:30 Dose: 125 mls/hr Piperacillin Sod/Tazobactam (Sod 3.375 gm/ Sodium Chloride) 50 mls @ 100 mls/ hr IV Q8H [facility] Last Admin: 08/25/19 06:21 Dose: 100 mls/hr Vancomycin HCl 2 gm/ Sodium (Chloride) 500 mls @ 333.333 mls/hr IV Q12H [facility] Last Admin: 08/25/19 01:47 Dose: 333.333 mls/hr Piperacillin Sod/Tazobactam (Sod 3.375 gm/ Sodium Chloride) 50 mls @ 100 mls/ hr IV Q6H [facility] Last Admin: 08/25/19 23:48 Dose: 100 mls/hr Sodium Chloride (Normal Saline) 1,000 mls @ 999 mls/hr IV .Bolus ONE Stop: 08/25/19 22:48 Last Admin: 08/25/19 21:53 Dose: 999 mls/hr Sodium Chloride (Normal Saline) 1,000 mls @ 125 mls/hr IV ASDIRECTED [facility] Last Admin: 08/26/19 17:19 Dose: 125 mls/hr Piperacillin Sod/Tazobactam (Sod 4.5 gm/ Sodium Chloride) 100 mls @ 100 mls/hr IV Q6H [facility] Last Admin: 08/26/19 06:06 Dose: 100 mls/hr Meropenem/Sodium Chloride 1 gm (/ Premix) 50 mls @ 100 mls/hr IV Q8H [facility] Last Admin: 08/26/19 09:52 Dose: Not Given Meropenem/Sodium Chloride 1 gm (/ Premix) 50 mls @ 100 mls/hr IV Q12H [facility] Last Admin: 08/28/19 08:48 Dose: 100 mls/hr Sodium Chloride (Normal Saline) 500 mls @ 999 mls/hr IV .BOLUS [facility] Last Admin: 08/26/19 11:34 Dose: 999 mls/hr Ertapenem 1 gm/ Sodium (Chloride) 50 mls @ 100 mls/hr IV Q24H [facility] Last Admin: 08/28/19 13:54 Dose: 100 mls/hr Insulin Aspart (Novolog) 0 unit SUBCUT TIDAC [facility]; Protocol Last Admin: 08/28/19 12:07 Dose: Not Given Ketorolac Tromethamine (Toradol) 30 mg IVPUSH ONETIME ONE Stop: 08/24/19 20:41 Last Admin: 08/24/19 20:53 Dose: 30 mg Morphine Sulfate (Morphine) 1 mg IVPUSH Q4H PRN PRN Reason: Pain (severe 7-10) Stop: 08/25/19 23:18 Morphine Sulfate (Morphine) 2 mg IVPUSH Q2H PRN PRN Reason: Pain (severe 7-10) Omeprazole (Omeprazole) 20 mg PO DAILY [facility] Last Admin: 08/28/19 08:48 Dose: 20 mg Ondansetron HCl (Zofran) 4 mg IVPUSH Q4H PRN PRN Reason: Nausea/Vomiting Diclofenac Sodium 4 (Gm)) 0 each TOP ASDIRECTED [facility] Potassium Chloride (Klor-Con M20) 20 meq PO ONETIME ONE Stop: 08/25/19 08:00 Last Admin: 08/25/19 08:18 Dose: 20 meq Potassium Chloride (Klor-Con M20) 40 meq PO ONETIME ONE Stop: 08/27/19 08:25 Last Admin: 08/27/19 09:02 Dose: 40 meq Pregabalin (Lyrica) 100 mg PO DAILY [facility] Last Admin: 08/28/19 08:47 Dose: 100 mg Pyridoxine HCl (Vitamin B6-Pyridoxine) 100 mg PO DAILY [facility] Last Admin: 08/28/19 08:48 Dose: 100 mg Vancomycin HCl (Pharmacy To Dose - Vancomycin) 1 dose .XX ASDIRECTED [facility] Stop: 08/24/19 23:31 - Plan Plan:: I have seen and evaluated the patient and agree with the residents note unless specified in my note
[2019-08-26] MEDS: atorvaSTATin 10 MG Tab PO SCH (21:22)
[2019-08-26] MEDS: Amitriptyline 25 MG Tab PO SCH (21:22)
[2019-08-27] MEDS: Heparin Sodium 5,000 Units/ML Vial SUBCUT SCH ×3 (03:28→18:11)
[2019-08-27 06:44] LABS: CARBON DIOXIDE,CO2 25.7 mmol/L (21.0-32.0); POTASSIUM,K 3.1 mmol/L (3.5-5.1)
[2019-08-27] MEDS ORDERED: Potassium Chloride 20 MEQ Tab.ER PO ONE (08:24)
[2019-08-27] MEDS: Omeprazole 20 MG Cap.CR PO SCH (09:02)
[2019-08-27] MEDS: Pregabalin 50 MG Cap PO SCH (09:02)
[2019-08-27] MEDS: Citalopram 20 MG Tab PO SCH (09:02)
[2019-08-27] MEDS: buPROPion 150 MG Tab.ER PO SCH (09:03)
[2019-08-27] MEDS: Vitamin B6-pyridOXINE 50 MG Tab PO SCH (09:03)
[2019-08-27] MEDS: Meropenem Premix 1 GM in Premix Bag 1 BAG IV SCH ×2 (09:06→21:04)
--- NOTE | 2019-08-27 09:21 | PCM.PN ---
<Leora Nolasco - Last Filed: 08/27/19 12:50> - General Info Date of Service: 08/27/19 Subjective Update: Bedside sitting upright:; Denies any pain or discomfort. Mentions appetite is low however is not endorse any nausea no vomiting. Complaining of some mild diarrhea however denies any abdominal pain or discomfort. - Review of Systems General: Denies: Fever, Malaise, Chills HEENT: Reports: No Symptoms Pulmonary: Reports: No Symptoms Cardiovascular: Reports: No Symptoms Gastrointestinal: Reports: Diarrhea. Denies: Abdominal Pain, Constipation, Nausea, Vomiting Genitourinary: Denies: Dysuria, Frequency, Burning Musculoskeletal: Reports: No Symptoms Neurological: Denies: Confusion, Headache - Patient Data Vitals - Most Recent: Last Vital Signs Temp 97.5 F 08/27/19 07:57 Pulse 80 08/27/19 07:57 Resp 18 08/27/19 07:57 BP 133/76 08/27/19 07:57 Pulse Ox 94 L 08/27/19 07:57 Weight - Most Recent: 149.8 kg I&O - Last 24 Hours: Intake & Output 08/26/19 08/27/19 08/27/19 22:59 06:59 14:59 Intake Total 1900 800 Output Total 800 1000 Balance 1100 -200 Lab Results Last 24 Hours: Laboratory Results - last 24 hr 08/27/19 08/27/19 Range/Units 06:10 06:10 WBC 14.78 H (4.0-11.0) K/uL RBC 3.81 L (4.30-5.90) M/uL Hgb 11.0 L (12.0-16.0) g/dL Hct 33.8 L (36.0-46.0) % MCV 88.7 (80.0-98.0) fL MCH 28.9 (27.0-32.0) pg MCHC 32.5 (31.0-37.0) g/dL RDW Std Deviation 48.0 (28.0-62.0) fl RDW Coeff of Aristeo 15 (11.0-15.0) % Plt Count 221 (150-400) K/uL MPV 10.00 (7.40-12.00) fL Neut % (Auto) 80.2 H (48.0-80.0) % Lymph % (Auto) 12.2 L (16.0-40.0) % [place] % (Auto) 6.4 (0.0-15.0) % Eos % (Auto) 0.9 (0.0-7.0) % Baso % (Auto) 0.3 (0.0-1.5) % Neut # (Auto) 11.9 H (1.4-5.7) K/uL Lymph # (Auto) 1.8 (0.6-2.4) K/uL [place] # (Auto) 0.9 H (0.0-0.8) K/uL Eos # (Auto) 0.1 (0.0-0.7) K/uL Baso # (Auto) 0.0 (0.0-0.1) K/uL Nucleated RBC % 0.0 /100WBC Nucleated RBCs # 0 K/uL Sodium 139 (136-145) mmol/L Potassium 3.1 L (3.5-5.1) mmol/L Chloride 104 (98-107) mmol/L Carbon Dioxide 25.7 (21.0-32.0) mmol/L BUN 17 (7.0-18.0) mg/dL Creatinine 1.7 H (0.6-1.0) mg/dL Est Cr Clr Drug Dosing 35.00 mL/min Estimated GFR (MDRD) 31.2 ml/min Glucose 168 H (74-106) mg/dL Calcium 7.5 L (8.5-10.1) mg/dL Shaquille Results Last 24 Hours: Microbiology 08/26/19 02:20 Aerobic Blood Culture - Preliminary Blood - Venous Anaerobic Blood Culture - Preliminary NO GROWTH AFTER 1 DAY 08/25/19 11:15 Aerobic Blood Culture - Final Blood - Venous Anaerobic Blood Culture - Final 08/25/19 11:25 Aerobic Blood Culture - Final Blood - Venous - Lab Draw Escherichia Coli Anaerobic Blood Culture - Final 08/24/19 21:14 Aerobic Blood Culture - Preliminary Blood - Venous - Lab Draw NO GROWTH AFTER 2 DAYS Anaerobic Blood Culture - Final 08/24/19 20:53 Aerobic Blood Culture - Final Blood - Venous Escherichia Coli Anaerobic Blood Culture - Final 08/24/19 21:20 Urine Culture - Final Urine, Clean Catch Escherichia Coli 08/26/19 02:30 Aerobic Blood Culture - Preliminary Blood - Venous - Lab Draw NO GROWTH AFTER 1 DAY Anaerobic Blood Culture - Final 08/24/19 19:42 Quick Strep Confirmation Culture - Final Throat NO GROUP A STREP ISOLATED REFERENCE RANGE: NEGATIVE Group A Streptococcus Rapid Screen - Final NEGATIVE STREP A SCREEN REFERENCE RANGE: NEGATIVE Med Orders - Current: Current Medications Acetaminophen (Tylenol) 650 mg PO Q6H PRN PRN Reason: Pain Last Admin: 08/26/19 17:20 Dose: 650 mg Albuterol/Ipratropium (Duoneb 3.0-0.5 Mg/3 Ml) 3 ml NEB Q4HRRT PRN PRN Reason: Shortness Of Breath/wheezing Amitriptyline HCl (Elavil) 100 mg PO BEDTIME [facility] Last Admin: 08/26/19 21:22 Dose: 100 mg Atorvastatin Calcium (Lipitor) 10 mg PO BEDTIME [facility] Last Admin: 08/26/19 21:22 Dose: 10 mg Bupropion HCl (Wellbutrin Xl) 150 mg PO DAILY [facility] Last Admin: 08/27/19 09:03 Dose: 150 mg Citalopram Hydrobromide (Celexa) 40 mg PO DAILY [facility] Last Admin: 08/27/19 09:02 Dose: 40 mg Heparin Sodium (Porcine) (Heparin Sodium) 5,000 units SUBCUT Q8H [facility] Last Admin: 08/27/19 03:28 Dose: 5,000 units Meropenem/Sodium Chloride 1 gm (/ Premix) 50 mls @ 100 mls/hr IV Q12H [facility] Last Admin: 08/27/19 09:06 Dose: 100 mls/hr Morphine Sulfate (Morphine) 2 mg IVPUSH Q2H PRN PRN Reason: Pain (severe 7-10) Omeprazole (Omeprazole) 20 mg PO DAILY [facility] Last Admin: 08/27/19 09:02 Dose: 20 mg Ondansetron HCl (Zofran) 4 mg IVPUSH Q4H PRN PRN Reason: Nausea/Vomiting Diclofenac Sodium 4 (Gm)) 0 each TOP ASDIRECTED [facility] Pregabalin (Lyrica) 100 mg PO DAILY [facility] Last Admin: 08/27/19 09:02 Dose: 100 mg Pyridoxine HCl (Vitamin B6-Pyridoxine) 100 mg PO DAILY [facility] Last Admin: 08/27/19 09:03 Dose: 100 mg Discontinued Medications Acetaminophen (Tylenol) 325 mg PO ASDIRECTED [facility] Sodium Chloride (Normal Saline) 1,000 mls @ 999 mls/hr IV .Bolus ONE Stop: 08/24/19 21:40 Last Admin: 08/24/19 20:42 Dose: Not Given Sodium Chloride (Normal Saline) 1,000 mls @ 1,000 mls/hr IV .Bolus ONE Stop: 08/24/19 21:39 Last Admin: 08/24/19 20:52 Dose: 1,000 mls/hr Ceftriaxone Sodium/Dextrose 1 (gm/ Premix) 50 mls @ 100 mls/hr IV ONETIME ONE Stop: 08/24/19 22:10 Last Admin: 08/24/19 22:10 Dose: 100 mls/hr Sodium Chloride (Normal Saline) 1,000 mls @ 999 mls/hr IV BOLUS [facility] Ceftriaxone Sodium/Dextrose 1 (gm/ Premix) 50 mls @ 100 mls/hr IV Q24H [facility] Sodium Chloride/ Sodium (Chloride) 2,000 mls @ 999 mls/hr IV BOLUS [facility] Last Admin: 08/25/19 00:06 Dose: 999 mls/hr Sodium Chloride (Normal Saline) 1,000 mls @ 125 mls/hr IV ASDIRECTED [facility] Last Admin: 08/25/19 03:30 Dose: 125 mls/hr Piperacillin Sod/Tazobactam (Sod 3.375 gm/ Sodium Chloride) 50 mls @ 100 mls/ hr IV Q8H [facility] Last Admin: 08/25/19 06:21 Dose: 100 mls/hr Vancomycin HCl 2 gm/ Sodium (Chloride) 500 mls @ 333.333 mls/hr IV Q12H [facility] Last Admin: 08/25/19 01:47 Dose: 333.333 mls/hr Piperacillin Sod/Tazobactam (Sod 3.375 gm/ Sodium Chloride) 50 mls @ 100 mls/ hr IV Q6H [facility] Last Admin: 08/25/19 23:48 Dose: 100 mls/hr Sodium Chloride (Normal Saline) 1,000 mls @ 999 mls/hr IV .Bolus ONE Stop: 08/25/19 22:48 Last Admin: 08/25/19 21:53 Dose: 999 mls/hr Sodium Chloride (Normal Saline) 1,000 mls @ 125 mls/hr IV ASDIRECTED [facility] Last Admin: 08/26/19 17:19 Dose: 125 mls/hr Piperacillin Sod/Tazobactam (Sod 4.5 gm/ Sodium Chloride) 100 mls @ 100 mls/hr IV Q6H [facility] Last Admin: 08/26/19 06:06 Dose: 100 mls/hr Meropenem/Sodium Chloride 1 gm (/ Premix) 50 mls @ 100 mls/hr IV Q8H [facility] Last Admin: 08/26/19 09:52 Dose: Not Given Sodium Chloride (Normal Saline) 500 mls @ 999 mls/hr IV .BOLUS [facility] Last Admin: 08/26/19 11:34 Dose: 999 mls/hr Ketorolac Tromethamine (Toradol) 30 mg IVPUSH ONETIME ONE Stop: 08/24/19 20:41 Last Admin: 08/24/19 20:53 Dose: 30 mg Morphine Sulfate (Morphine) 1 mg IVPUSH Q4H PRN PRN Reason: Pain (severe 7-10) Stop: 08/25/19 23:18 Potassium Chloride (Klor-Con M20) 20 meq PO ONETIME ONE Stop: 08/25/19 08:00 Last Admin: 08/25/19 08:18 Dose: 20 meq Potassium Chloride (Klor-Con M20) 40 meq PO ONETIME ONE Stop: 08/27/19 08:25 Last Admin: 08/27/19 09:02 Dose: 40 meq Vancomycin HCl (Pharmacy To Dose - Vancomycin) 1 dose .XX ASDIRECTED [facility] Stop: 08/24/19 23:31 - Exam General: Alert, Oriented HEENT: Pupils Equal, EOMI, Mucous Membr. Moist/[place] Lungs: Clear to Auscultation, Normal Respiratory Effort Cardiovascular: Regular Rate, Regular Rhythm GI/Abdominal Exam: Soft, Non-Tender Skin: Warm, Dry Neurological: No New Focal Deficit Psy/Mental Status: Alert, Normal Mood Sepsis Event Note - Evaluation Sepsis Screening Result: No Definite Risk - Focused Exam Vital Signs: Vital Signs Temp Temp Pulse Resp BP Pulse Ox 08/27/19 07:57 97.5 F 80 18 133/76 94 L 08/27/19 03:31 98.3 F 110 H 20 132/89 95 08/27/19 00:29 100.4 F 96 23 H 130/81 94 L Date Exam was Performed: 08/27/19 Time Exam was Performed: 12:50 - Problem List Review Problem List Initiated/Reviewed/Updated: Yes - My Orders Last 24 Hours: My Active Orders 08/26/19 09:00 Pregabalin [Lyrica] 100 mg PO DAILY Vitamin B6-pyridOXINE 100 mg PO DAILY buPROPion [Wellbutrin XL] 150 mg PO DAILY 08/26/19 09:02 May Shower [RC] ASDIRECTED 08/27/19 06:10 GLYCOSYLATED HEMOGLOBIN,HGBA1C [CHEM] Routine - Plan Plan:: Assessment: 1. Sepsis in the setting of UTI w /MAYLIN Gram - Rods ESBL 2. Morbid obesity past medical history of anxiety, depression, hypercholesterolemia 3.. Status post cholecystectomy/gastric bypass Plan Admit to observation. Full code. DVT prophylaxis: Heparin GI prophylaxis pantoprazole 40 daily 1. will continue pt. on Meropenem secondary to resistance pattern; repeat BC will wait 48 hours on meropenem to decide efficacy; sensitivities suggest ertapenem might be good choice x 7 additional days. ; pt. will possibly have to return daily for IV abx transfusion w/ IV replacement q3 days 2. Past medical history: Continue home medications 3. A1c and stool studies ordered 4. Hypokalemia: 40 po K given in AM <Erik Crocker - Last Filed: 09/01/19 20:40> - Patient Data Vitals - Most Recent: Last Vital Signs Temp 35.9 C 08/28/19 11:42 Pulse 74 08/28/19 11:42 Resp 16 08/28/19 11:42 BP 102/74 08/28/19 11:42 Pulse Ox 95 08/28/19 11:42 Shaquille Results Last 24 Hours: Microbiology 08/27/19 14:50 Stool Culture - Final Stool / Feces YEAST Shiga Toxin I & II - Final 08/27/19 06:21 Aerobic Blood Culture - Final Blood - Venous - Lab Draw NO GROWTH AFTER 5 DAYS Anaerobic Blood Culture - Final NO GROWTH AFTER 5 DAYS 08/27/19 06:10 Aerobic Blood Culture - Final Blood - Venous NO GROWTH AFTER 5 DAYS Anaerobic Blood Culture - Final NO GROWTH AFTER 5 DAYS Med Orders - Current: Current Medications Discontinued Medications Acetaminophen (Tylenol) 325 mg PO ASDIRECTED [facility] Acetaminophen (Tylenol) 650 mg PO Q6H PRN PRN Reason: Pain Last Admin: 01/09/20 08:49 Dose: 650 mg Albuterol/Ipratropium (Duoneb 3.0-0.5 Mg/3 Ml) 3 ml NEB Q4HRRT PRN PRN Reason: Shortness Of Breath/wheezing Last Admin: 08/28/19 06:13 Dose: 3 ml Amitriptyline HCl (Elavil) 100 mg PO BEDTIME [facility] Last Admin: 08/27/19 20:55 Dose: 100 mg Atorvastatin Calcium (Lipitor) 10 mg PO BEDTIME [facility] Last Admin: 08/27/19 20:55 Dose: 10 mg Bupropion HCl (Wellbutrin Xl) 150 mg PO DAILY [facility] Last Admin: 08/28/19 08:48 Dose: 150 mg Citalopram Hydrobromide (Celexa) 40 mg PO DAILY [facility] Last Admin: 08/28/19 08:48 Dose: 40 mg Heparin Sodium (Porcine) (Heparin Sodium) 5,000 units SUBCUT Q8H [facility] Last Admin: 08/28/19 10:44 Dose: 5,000 units Sodium Chloride (Normal Saline) 1,000 mls @ 999 mls/hr IV .Bolus ONE Stop: 08/24/19 21:40 Last Admin: 08/24/19 20:42 Dose: Not Given Sodium Chloride (Normal Saline) 1,000 mls @ 1,000 mls/hr IV .Bolus ONE Stop: 08/24/19 21:39 Last Admin: 08/24/19 20:52 Dose: 1,000 mls/hr Ceftriaxone Sodium/Dextrose 1 (gm/ Premix) 50 mls @ 100 mls/hr IV ONETIME ONE Stop: 08/24/19 22:10 Last Admin: 08/24/19 22:10 Dose: 100 mls/hr Sodium Chloride (Normal Saline) 1,000 mls @ 999 mls/hr IV BOLUS [facility] Ceftriaxone Sodium/Dextrose 1 (gm/ Premix) 50 mls @ 100 mls/hr IV Q24H [facility] Sodium Chloride/ Sodium (Chloride) 2,000 mls @ 999 mls/hr IV BOLUS [facility] Last Admin: 08/25/19 00:06 Dose: 999 mls/hr Sodium Chloride (Normal Saline) 1,000 mls @ 125 mls/hr IV ASDIRECTED [facility] Last Admin: 08/25/19 03:30 Dose: 125 mls/hr Piperacillin Sod/Tazobactam (Sod 3.375 gm/ Sodium Chloride) 50 mls @ 100 mls/ hr IV Q8H [facility] Last Admin: 08/25/19 06:21 Dose: 100 mls/hr Vancomycin HCl 2 gm/ Sodium (Chloride) 500 mls @ 333.333 mls/hr IV Q12H [facility] Last Admin: 08/25/19 01:47 Dose: 333.333 mls/hr Piperacillin Sod/Tazobactam (Sod 3.375 gm/ Sodium Chloride) 50 mls @ 100 mls/ hr IV Q6H [facility] Last Admin: 08/25/19 23:48 Dose: 100 mls/hr Sodium Chloride (Normal Saline) 1,000 mls @ 999 mls/hr IV .Bolus ONE Stop: 08/25/19 22:48 Last Admin: 08/25/19 21:53 Dose: 999 mls/hr Sodium Chloride (Normal Saline) 1,000 mls @ 125 mls/hr IV ASDIRECTED [facility] Last Admin: 08/26/19 17:19 Dose: 125 mls/hr Piperacillin Sod/Tazobactam (Sod 4.5 gm/ Sodium Chloride) 100 mls @ 100 mls/hr IV Q6H [facility] Last Admin: 08/26/19 06:06 Dose: 100 mls/hr Meropenem/Sodium Chloride 1 gm (/ Premix) 50 mls @ 100 mls/hr IV Q8H [facility] Last Admin: 08/26/19 09:52 Dose: Not Given Meropenem/Sodium Chloride 1 gm (/ Premix) 50 mls @ 100 mls/hr IV Q12H [facility] Last Admin: 08/28/19 08:48 Dose: 100 mls/hr Sodium Chloride (Normal Saline) 500 mls @ 999 mls/hr IV .BOLUS [facility] Last Admin: 08/26/19 11:34 Dose: 999 mls/hr Ertapenem 1 gm/ Sodium (Chloride) 50 mls @ 100 mls/hr IV Q24H [facility] Last Admin: 08/28/19 13:54 Dose: 100 mls/hr Insulin Aspart (Novolog) 0 unit SUBCUT TIDAC [facility]; Protocol Last Admin: 08/28/19 12:07 Dose: Not Given Ketorolac Tromethamine (Toradol) 30 mg IVPUSH ONETIME ONE Stop: 08/24/19 20:41 Last Admin: 08/24/19 20:53 Dose: 30 mg Morphine Sulfate (Morphine) 1 mg IVPUSH Q4H PRN PRN Reason: Pain (severe 7-10) Stop: 08/25/19 23:18 Morphine Sulfate (Morphine) 2 mg IVPUSH Q2H PRN PRN Reason: Pain (severe 7-10) Omeprazole (Omeprazole) 20 mg PO DAILY [facility] Last Admin: 08/28/19 08:48 Dose: 20 mg Ondansetron HCl (Zofran) 4 mg IVPUSH Q4H PRN PRN Reason: Nausea/Vomiting Diclofenac Sodium 4 (Gm)) 0 each TOP ASDIRECTED [facility] Potassium Chloride (Klor-Con M20) 20 meq PO ONETIME ONE Stop: 08/25/19 08:00 Last Admin: 08/25/19 08:18 Dose: 20 meq Potassium Chloride (Klor-Con M20) 40 meq PO ONETIME ONE Stop: 08/27/19 08:25 Last Admin: 08/27/19 09:02 Dose: 40 meq Pregabalin (Lyrica) 100 mg PO DAILY [facility] Last Admin: 08/28/19 08:47 Dose: 100 mg Pyridoxine HCl (Vitamin B6-Pyridoxine) 100 mg PO DAILY [facility] Last Admin: 08/28/19 08:48 Dose: 100 mg Vancomycin HCl (Pharmacy To Dose - Vancomycin) 1 dose .XX ASDIRECTED [facility] Stop: 08/24/19 23:31 - Plan Plan:: I have seen and evaluated the patient and agree with the residents note unless specified in my note
[2019-08-27 09:38] LABS: HEMOGLOBIN A1C 7.3 % (4.5-6.2)
[2019-08-27] MEDS: Insulin Aspart 100 Units/ML 3 ML Pen SUBCUT SCH (17:19)
[2019-08-27] MEDS: Amitriptyline 25 MG Tab PO SCH (20:55)
[2019-08-27] MEDS: atorvaSTATin 10 MG Tab PO SCH (20:55)
[2019-08-27] MEDS: Acetaminophen 325 MG Tab PO PRN (20:56)
[2019-08-28] MEDS: Heparin Sodium 5,000 Units/ML Vial SUBCUT SCH ×2 (03:36→10:44)
[2019-08-28 06:16] LABS: POTASSIUM,K 3.6 mmol/L (3.5-5.1)
[2019-08-28] MEDS: Insulin Aspart 100 Units/ML 3 ML Pen SUBCUT SCH ×2 (07:35→12:07)
[2019-08-28] MEDS: Pregabalin 50 MG Cap PO SCH (08:47)
[2019-08-28] MEDS: Citalopram 20 MG Tab PO SCH (08:48)
[2019-08-28] MEDS: Vitamin B6-pyridOXINE 50 MG Tab PO SCH (08:48)
[2019-08-28] MEDS: buPROPion 150 MG Tab.ER PO SCH (08:48)
[2019-08-28] MEDS: Omeprazole 20 MG Cap.CR PO SCH (08:48)
[2019-08-28] MEDS: Meropenem Premix 1 GM in Premix Bag 1 BAG IV SCH (08:48)
[2019-08-28] MEDS: Acetaminophen 325 MG Tab PO PRN (08:49)
--- NOTE | 2019-08-28 09:35 | PCM.DCSUM1 ---
<Leora Nolasco - Last Filed: 08/29/19 14:26> Discharge Summary - Hospital Course Free Text/Narrative:: Discharge summary Admission diagnoses: Sepsis in the setting of UTI Chronic pain Morbid obesity status post gastric bypass H Consultations: None Procedures: None Hospital course: Patient is a 54-year-old morbidly obese female presenting with increasing fever chills body aches and dysuria. Patient was diagnosed with a UTI and concerns for bacteremia. Patient was placed on vancomycin and meropenem; sensitivities however were positive for ESBL gram-negative rods; sensitive to carbapenems. Patient did have fevers on numerous occasions with resolution with Tylenol and initiation of antibiotics IV. Patient was also found to have an elevated A1c was diagnosed with diabetes type 2; patient on sliding scale. Patient was discharged with additional 5 days of outpatient IV infusion of ertapenem 1 g daily x5 with IV change every 72 hours. Patient was also sent home with metformin 500 g daily; advised to follow-up PCP for better glucose control and management. Repeat blood cultures x48 hours was negative; patient was discharged in stable condition. Discharge condition: Stable Disposition: Home Follow-up: PCP Outpatient IV antibiotic infusion x5 days. - Discharge Data Discharge Date: 08/25/19 Discharge Disposition: Home, Self-Care 01 Condition: Fair - Referral to Home Health Primary Care Physician: PCP Unknown - Patient Summary/Data Consults: Consultations 08/27/19 12:54 Consult to Diabetic Nurse Specialist [CONS] Routine - Patient Instructions Diet: Diabetic Diet Notify Provider of: Fever, Increased Pain, Swelling and Redness, Nausea and/or Vomiting Other/Special Instructions: daily infusion of IV antibiotics. Follow up with your PCP regarding your Diabetes. Metformin once daily for now - Discharge Plan Prescriptions/Med Rec: Ertapenem [INVanz] 1 gm IV DAILY #5 adv metFORMIN [Glucophage XR] 500 mg PO DAILY 14 Days #14 tab.er Home Medications: Home Meds Acetaminophen 325 mg PO ASDIRECTED 08/24/19 [History] Amitriptyline HCl 100 mg PO BEDTIME 08/24/19 [History] Citalopram Hydrobromide [Celexa] 40 mg PO DAILY 08/24/19 [History] Diclofenac Sodium [Voltaren] 4 gm TP ASDIRECTED 08/24/19 [History] Multivitamin [Multivitamins] 1 each PO DAILY 08/24/19 [History] Omeprazole 20 mg PO DAILY 08/24/19 [History] Pregabalin [Lyrica] 100 mg PO DAILY 08/24/19 [History] Pyridoxine HCl (Vitamin B6) [Pyridoxine HCl] 100 mg PO DAILY 08/24/19 [History] atorvaSTATin [Lipitor] 10 mg PO BEDTIME 08/24/19 [History] buPROPion HCl [Bupropion Xl] 150 mg PO DAILY 08/24/19 [History] Acetaminophen [Tylenol] 650 mg PO Q6H PRN tablet 08/28/19 [Rx] Ertapenem [INVanz] 1 gm IV DAILY #5 adv 08/28/19 [Rx] metFORMIN [Glucophage XR] 500 mg PO DAILY 14 Days #14 tab.er 08/28/19 [Rx] Patient Handouts: Ertapenem injection, ESBL Infection Information, Urinary Tract Infection, Adult, [id number], Metformin tablets, Type 2 Diabetes Mellitus, Diagnosis, Adult, [id number], Diabetes Mellitus and Nutrition, Adult Referrals: Wendy Blandon NP [Nurse Practitioner] - 09/03/19 2:30 pm - Discharge Summary/Plan Comment DC Time >30 min.: No - Patient Data Vitals - Most Recent: Last Vital Signs Temp 98 F 08/28/19 08:45 Pulse 87 08/28/19 08:45 Resp 18 08/28/19 08:45 BP 134/67 08/28/19 08:45 Pulse Ox 95 08/28/19 08:45 Weight - Most Recent: 149.8 kg I&O - Last 24 hours: Intake & Output 08/27/19 08/28/19 08/28/19 22:59 06:59 14:59 Intake Total 1460 1000 Output Total 1450 1000 Balance 10 0 Lab Results - Last 24 hrs: Laboratory Results - last 24 hr 08/27/19 08/27/19 08/27/19 Range/Units 06:10 17:11 20:31 WBC (4.0-11.0) K/uL RBC (4.30-5.90) M/uL Hgb (12.0-16.0) g/dL Hct (36.0-46.0) % MCV (80.0-98.0) fL MCH (27.0-32.0) pg MCHC (31.0-37.0) g/dL RDW Std Deviation (28.0-62.0) fl RDW Coeff of Aristeo (11.0-15.0) % Plt Count (150-400) K/uL MPV (7.40-12.00) fL Neut % (Auto) (48.0-80.0) % Lymph % (Auto) (16.0-40.0) % Desha % (Auto) (0.0-15.0) % Eos % (Auto) (0.0-7.0) % Baso % (Auto) (0.0-1.5) % Neut # (Auto) (1.4-5.7) K/uL Lymph # (Auto) (0.6-2.4) K/uL Desha # (Auto) (0.0-0.8) K/uL Eos # (Auto) (0.0-0.7) K/uL Baso # (Auto) (0.0-0.1) K/uL Nucleated RBC % /100WBC Nucleated RBCs # K/uL Sodium (136-145) mmol/L Potassium (3.5-5.1) mmol/L Chloride (98-107) mmol/L Carbon Dioxide (21.0-32.0) mmol/L BUN (7.0-18.0) mg/dL Creatinine (0.6-1.0) mg/dL Est Cr Clr Drug Dosing mL/min Estimated GFR (MDRD) ml/min Glucose (74-106) mg/dL POC Glucose 95 115 H (60-110) mg/dL Hemoglobin A1c 7.3 H (4.5-6.2) % Calcium (8.5-10.1) mg/dL Total Bilirubin (0.2-1.0) mg/dL AST (15-37) IU/L ALT (14-63) IU/L Alkaline Phosphatase (46-116) U/L Total Protein (6.4-8.2) g/dL Albumin (3.4-5.0) g/dL Globulin (2.6-4.0) g/dL Albumin/Globulin Ratio (0.9-1.6) 08/28/19 08/28/19 08/28/19 Range/Units 05:44 05:44 06:44 WBC 12.59 H (4.0-11.0) K/uL RBC 3.97 L (4.30-5.90) M/uL Hgb 11.6 L (12.0-16.0) g/dL Hct 35.5 L (36.0-46.0) % MCV 89.4 (80.0-98.0) fL MCH 29.2 (27.0-32.0) pg MCHC 32.7 (31.0-37.0) g/dL RDW Std Deviation 48.9 (28.0-62.0) fl RDW Coeff of Aristeo 15 (11.0-15.0) % Plt Count 250 (150-400) K/uL MPV 9.60 (7.40-12.00) fL Neut % (Auto) 81.9 H (48.0-80.0) % Lymph % (Auto) 8.9 L (16.0-40.0) % Desha % (Auto) 7.5 (0.0-15.0) % Eos % (Auto) 1.3 (0.0-7.0) % Baso % (Auto) 0.4 (0.0-1.5) % Neut # (Auto) 10.3 H (1.4-5.7) K/uL Lymph # (Auto) 1.1 (0.6-2.4) K/uL Desha # (Auto) 1.0 H (0.0-0.8) K/uL Eos # (Auto) 0.2 (0.0-0.7) K/uL Baso # (Auto) 0.1 (0.0-0.1) K/uL Nucleated RBC % 0.0 /100WBC Nucleated RBCs # 0 K/uL Sodium 143 (136-145) mmol/L Potassium 3.6 (3.5-5.1) mmol/L Chloride 106 (98-107) mmol/L Carbon Dioxide 28.0 (21.0-32.0) mmol/L BUN 17 (7.0-18.0) mg/dL Creatinine 1.6 H (0.6-1.0) mg/dL Est Cr Clr Drug Dosing 37.19 mL/min Estimated GFR (MDRD) 33.5 ml/min Glucose 174 H (74-106) mg/dL POC Glucose 130 H (60-110) mg/dL Hemoglobin A1c (4.5-6.2) % Calcium 7.9 L (8.5-10.1) mg/dL Total Bilirubin 0.4 (0.2-1.0) mg/dL AST 80 H (15-37) IU/L ALT 77 H (14-63) IU/L Alkaline Phosphatase 120 H (46-116) U/L Total Protein 6.0 L (6.4-8.2) g/dL Albumin 1.9 L (3.4-5.0) g/dL Globulin 4.1 H (2.6-4.0) g/dL Albumin/Globulin Ratio 0.5 L (0.9-1.6) OLEKSANDR Results - Last 24 hrs: Microbiology 08/26/19 02:20 Aerobic Blood Culture - Preliminary Blood - Venous Anaerobic Blood Culture - Preliminary NO GROWTH AFTER 2 DAYS 08/27/19 06:21 Aerobic Blood Culture - Preliminary Blood - Venous - Lab Draw NO GROWTH AFTER 1 DAY Anaerobic Blood Culture - Preliminary NO GROWTH AFTER 1 DAY 08/27/19 06:10 Aerobic Blood Culture - Preliminary Blood - Venous NO GROWTH AFTER 1 DAY Anaerobic Blood Culture - Preliminary NO GROWTH AFTER 1 DAY 08/26/19 02:30 Aerobic Blood Culture - Preliminary Blood - Venous - Lab Draw NO GROWTH AFTER 2 DAYS Anaerobic Blood Culture - Final 08/24/19 21:14 Aerobic Blood Culture - Preliminary Blood - Venous - Lab Draw NO GROWTH AFTER 3 DAYS Anaerobic Blood Culture - Final 08/25/19 11:15 Aerobic Blood Culture - Final Blood - Venous Anaerobic Blood Culture - Final 08/25/19 11:25 Aerobic Blood Culture - Final Blood - Venous - Lab Draw Escherichia Coli Anaerobic Blood Culture - Final 08/24/19 20:53 Aerobic Blood Culture - Final Blood - Venous Escherichia Coli Anaerobic Blood Culture - Final 08/24/19 21:20 Urine Culture - Final Urine, Clean Catch Escherichia Coli Med Orders - Current: Current Medications Acetaminophen (Tylenol) 650 mg PO Q6H PRN PRN Reason: Pain Last Admin: 08/28/19 08:49 Dose: 650 mg Albuterol/Ipratropium (Duoneb 3.0-0.5 Mg/3 Ml) 3 ml NEB Q4HRRT PRN PRN Reason: Shortness Of Breath/wheezing Last Admin: 08/28/19 06:13 Dose: 3 ml Amitriptyline HCl (Elavil) 100 mg PO BEDTIME [facility] Last Admin: 08/27/19 20:55 Dose: 100 mg Atorvastatin Calcium (Lipitor) 10 mg PO BEDTIME [facility] Last Admin: 08/27/19 20:55 Dose: 10 mg Bupropion HCl (Wellbutrin Xl) 150 mg PO DAILY [facility] Last Admin: 08/28/19 08:48 Dose: 150 mg Citalopram Hydrobromide (Celexa) 40 mg PO DAILY [facility] Last Admin: 08/28/19 08:48 Dose: 40 mg Heparin Sodium (Porcine) (Heparin Sodium) 5,000 units SUBCUT Q8H [facility] Last Admin: 08/28/19 03:36 Dose: 5,000 units Meropenem/Sodium Chloride 1 gm (/ Premix) 50 mls @ 100 mls/hr IV Q12H [facility] Last Admin: 08/28/19 08:48 Dose: 100 mls/hr Insulin Aspart (Novolog) 0 unit SUBCUT TIDAC [facility]; Protocol Last Admin: 08/28/19 07:35 Dose: Not Given Morphine Sulfate (Morphine) 2 mg IVPUSH Q2H PRN PRN Reason: Pain (severe 7-10) Omeprazole (Omeprazole) 20 mg PO DAILY [facility] Last Admin: 08/28/19 08:48 Dose: 20 mg Ondansetron HCl (Zofran) 4 mg IVPUSH Q4H PRN PRN Reason: Nausea/Vomiting Diclofenac Sodium 4 (Gm)) 0 each TOP ASDIRECTED [facility] Pregabalin (Lyrica) 100 mg PO DAILY [facility] Last Admin: 08/28/19 08:47 Dose: 100 mg Pyridoxine HCl (Vitamin B6-Pyridoxine) 100 mg PO DAILY [facility] Last Admin: 08/28/19 08:48 Dose: 100 mg Discontinued Medications Acetaminophen (Tylenol) 325 mg PO ASDIRECTED [facility] Sodium Chloride (Normal Saline) 1,000 mls @ 999 mls/hr IV .Bolus ONE Stop: 08/24/19 21:40 Last Admin: 08/24/19 20:42 Dose: Not Given Sodium Chloride (Normal Saline) 1,000 mls @ 1,000 mls/hr IV .Bolus ONE Stop: 08/24/19 21:39 Last Admin: 08/24/19 20:52 Dose: 1,000 mls/hr Ceftriaxone Sodium/Dextrose 1 (gm/ Premix) 50 mls @ 100 mls/hr IV ONETIME ONE Stop: 08/24/19 22:10 Last Admin: 08/24/19 22:10 Dose: 100 mls/hr Sodium Chloride (Normal Saline) 1,000 mls @ 999 mls/hr IV BOLUS [facility] Ceftriaxone Sodium/Dextrose 1 (gm/ Premix) 50 mls @ 100 mls/hr IV Q24H [facility] Sodium Chloride/ Sodium (Chloride) 2,000 mls @ 999 mls/hr IV BOLUS [facility] Last Admin: 08/25/19 00:06 Dose: 999 mls/hr Sodium Chloride (Normal Saline) 1,000 mls @ 125 mls/hr IV ASDIRECTED [facility] Last Admin: 08/25/19 03:30 Dose: 125 mls/hr Piperacillin Sod/Tazobactam (Sod 3.375 gm/ Sodium Chloride) 50 mls @ 100 mls/ hr IV Q8H [facility] Last Admin: 08/25/19 06:21 Dose: 100 mls/hr Vancomycin HCl 2 gm/ Sodium (Chloride) 500 mls @ 333.333 mls/hr IV Q12H [facility] Last Admin: 08/25/19 01:47 Dose: 333.333 mls/hr Piperacillin Sod/Tazobactam (Sod 3.375 gm/ Sodium Chloride) 50 mls @ 100 mls/ hr IV Q6H [facility] Last Admin: 08/25/19 23:48 Dose: 100 mls/hr Sodium Chloride (Normal Saline) 1,000 mls @ 999 mls/hr IV .Bolus ONE Stop: 08/25/19 22:48 Last Admin: 08/25/19 21:53 Dose: 999 mls/hr Sodium Chloride (Normal Saline) 1,000 mls @ 125 mls/hr IV ASDIRECTED [facility] Last Admin: 08/26/19 17:19 Dose: 125 mls/hr Piperacillin Sod/Tazobactam (Sod 4.5 gm/ Sodium Chloride) 100 mls @ 100 mls/hr IV Q6H [facility] Last Admin: 08/26/19 06:06 Dose: 100 mls/hr Meropenem/Sodium Chloride 1 gm (/ Premix) 50 mls @ 100 mls/hr IV Q8H [facility] Last Admin: 08/26/19 09:52 Dose: Not Given Sodium Chloride (Normal Saline) 500 mls @ 999 mls/hr IV .BOLUS [facility] Last Admin: 08/26/19 11:34 Dose: 999 mls/hr Ketorolac Tromethamine (Toradol) 30 mg IVPUSH ONETIME ONE Stop: 08/24/19 20:41 Last Admin: 08/24/19 20:53 Dose: 30 mg Morphine Sulfate (Morphine) 1 mg IVPUSH Q4H PRN PRN Reason: Pain (severe 7-10) Stop: 08/25/19 23:18 Potassium Chloride (Klor-Con M20) 20 meq PO ONETIME ONE Stop: 08/25/19 08:00 Last Admin: 08/25/19 08:18 Dose: 20 meq Potassium Chloride (Klor-Con M20) 40 meq PO ONETIME ONE Stop: 08/27/19 08:25 Last Admin: 08/27/19 09:02 Dose: 40 meq Vancomycin HCl (Pharmacy To Dose - Vancomycin) 1 dose .XX ASDIRECTED [facility] Stop: 08/24/19 23:31 <Erik Crocker - Last Filed: 09/01/19 20:40> Discharge Summary - Hospital Course Free Text/Narrative:: I have seen and evaluated the patient and agree with the residents note unless specified in my note - Referral to Home Health Primary Care Physician: PCP Unknown - Patient Summary/Data Consults: Consultations 08/27/19 12:54 Consult to Diabetic Nurse Specialist [CONS] Routine - Patient Data Vitals - Most Recent: Last Vital Signs Temp 35.9 C 08/28/19 11:42 Pulse 74 08/28/19 11:42 Resp 16 08/28/19 11:42 BP 102/74 08/28/19 11:42 Pulse Ox 95 08/28/19 11:42 OLEKSANDR Results - Last 24 hrs: Microbiology 08/27/19 14:50 Stool Culture - Final Stool / Feces YEAST Shiga Toxin I & II - Final 08/27/19 06:21 Aerobic Blood Culture - Final Blood - Venous - Lab Draw NO GROWTH AFTER 5 DAYS Anaerobic Blood Culture - Final NO GROWTH AFTER 5 DAYS 08/27/19 06:10 Aerobic Blood Culture - Final Blood - Venous NO GROWTH AFTER 5 DAYS Anaerobic Blood Culture - Final NO GROWTH AFTER 5 DAYS Med Orders - Current: Current Medications Discontinued Medications Acetaminophen (Tylenol) 325 mg PO ASDIRECTED [facility] Acetaminophen (Tylenol) 650 mg PO Q6H PRN PRN Reason: Pain Last Admin: 08/28/19 08:49 Dose: 650 mg Albuterol/Ipratropium (Duoneb 3.0-0.5 Mg/3 Ml) 3 ml NEB Q4HRRT PRN PRN Reason: Shortness Of Breath/wheezing Last Admin: 08/28/19 06:13 Dose: 3 ml Amitriptyline HCl (Elavil) 100 mg PO BEDTIME [facility] Last Admin: 08/27/19 20:55 Dose: 100 mg Atorvastatin Calcium (Lipitor) 10 mg PO BEDTIME [facility] Last Admin: 08/27/19 20:55 Dose: 10 mg Bupropion HCl (Wellbutrin Xl) 150 mg PO DAILY [facility] Last Admin: 08/28/19 08:48 Dose: 150 mg Citalopram Hydrobromide (Celexa) 40 mg PO DAILY [facility] Last Admin: 08/28/19 08:48 Dose: 40 mg Heparin Sodium (Porcine) (Heparin Sodium) 5,000 units SUBCUT Q8H [facility] Last Admin: 08/28/19 10:44 Dose: 5,000 units Sodium Chloride (Normal Saline) 1,000 mls @ 999 mls/hr IV .Bolus ONE Stop: 08/24/19 21:40 Last Admin: 08/24/19 20:42 Dose: Not Given Sodium Chloride (Normal Saline) 1,000 mls @ 1,000 mls/hr IV .Bolus ONE Stop: 08/24/19 21:39 Last Admin: 08/24/19 20:52 Dose: 1,000 mls/hr Ceftriaxone Sodium/Dextrose 1 (gm/ Premix) 50 mls @ 100 mls/hr IV ONETIME ONE Stop: 08/24/19 22:10 Last Admin: 08/24/19 22:10 Dose: 100 mls/hr Sodium Chloride (Normal Saline) 1,000 mls @ 999 mls/hr IV BOLUS [facility] Ceftriaxone Sodium/Dextrose 1 (gm/ Premix) 50 mls @ 100 mls/hr IV Q24H [facility] Sodium Chloride/ Sodium (Chloride) 2,000 mls @ 999 mls/hr IV BOLUS [facility] Last Admin: 08/25/19 00:06 Dose: 999 mls/hr Sodium Chloride (Normal Saline) 1,000 mls @ 125 mls/hr IV ASDIRECTED [facility] Last Admin: 08/25/19 03:30 Dose: 125 mls/hr Piperacillin Sod/Tazobactam (Sod 3.375 gm/ Sodium Chloride) 50 mls @ 100 mls/ hr IV Q8H [facility] Last Admin: 08/25/19 06:21 Dose: 100 mls/hr Vancomycin HCl 2 gm/ Sodium (Chloride) 500 mls @ 333.333 mls/hr IV Q12H [facility] Last Admin: 08/25/19 01:47 Dose: 333.333 mls/hr Piperacillin Sod/Tazobactam (Sod 3.375 gm/ Sodium Chloride) 50 mls @ 100 mls/ hr IV Q6H [facility] Last Admin: 08/25/19 23:48 Dose: 100 mls/hr Sodium Chloride (Normal Saline) 1,000 mls @ 999 mls/hr IV .Bolus ONE Stop: 08/25/19 22:48 Last Admin: 08/25/19 21:53 Dose: 999 mls/hr Sodium Chloride (Normal Saline) 1,000 mls @ 125 mls/hr IV ASDIRECTED [facility] Last Admin: 08/26/19 17:19 Dose: 125 mls/hr Piperacillin Sod/Tazobactam (Sod 4.5 gm/ Sodium Chloride) 100 mls @ 100 mls/hr IV Q6H [facility] Last Admin: 08/26/19 06:06 Dose: 100 mls/hr Meropenem/Sodium Chloride 1 gm (/ Premix) 50 mls @ 100 mls/hr IV Q8H [facility] Last Admin: 08/26/19 09:52 Dose: Not Given Meropenem/Sodium Chloride 1 gm (/ Premix) 50 mls @ 100 mls/hr IV Q12H [facility] Last Admin: 08/28/19 08:48 Dose: 100 mls/hr Sodium Chloride (Normal Saline) 500 mls @ 999 mls/hr IV .BOLUS [facility] Last Admin: 08/26/19 11:34 Dose: 999 mls/hr Ertapenem 1 gm/ Sodium (Chloride) 50 mls @ 100 mls/hr IV Q24H [facility] Last Admin: 08/28/19 13:54 Dose: 100 mls/hr Insulin Aspart (Novolog) 0 unit SUBCUT TIDAC [facility]; Protocol Last Admin: 08/28/19 12:07 Dose: Not Given Ketorolac Tromethamine (Toradol) 30 mg IVPUSH ONETIME ONE Stop: 08/24/19 20:41 Last Admin: 08/24/19 20:53 Dose: 30 mg Morphine Sulfate (Morphine) 1 mg IVPUSH Q4H PRN PRN Reason: Pain (severe 7-10) Stop: 08/25/19 23:18 Morphine Sulfate (Morphine) 2 mg IVPUSH Q2H PRN PRN Reason: Pain (severe 7-10) Omeprazole (Omeprazole) 20 mg PO DAILY [facility] Last Admin: 08/28/19 08:48 Dose: 20 mg Ondansetron HCl (Zofran) 4 mg IVPUSH Q4H PRN PRN Reason: Nausea/Vomiting Diclofenac Sodium 4 (Gm)) 0 each TOP ASDIRECTED [facility] Potassium Chloride (Klor-Con M20) 20 meq PO ONETIME ONE Stop: 08/25/19 08:00 Last Admin: 08/25/19 08:18 Dose: 20 meq Potassium Chloride (Klor-Con M20) 40 meq PO ONETIME ONE Stop: 08/27/19 08:25 Last Admin: 08/27/19 09:02 Dose: 40 meq Pregabalin (Lyrica) 100 mg PO DAILY [facility] Last Admin: 08/28/19 08:47 Dose: 100 mg Pyridoxine HCl (Vitamin B6-Pyridoxine) 100 mg PO DAILY [facility] Last Admin: 08/28/19 08:48 Dose: 100 mg Vancomycin HCl (Pharmacy To Dose - Vancomycin) 1 dose .XX ASDIRECTED [facility] Stop: 08/24/19 23:31
[2019-08-28 11:44] VITALS: BP 102/74; PULSE 74
[2019-08-28] MEDS ORDERED: Ertapenem 1 GM in Sodium Chloride 0.9% 50 ML IV SCH (14:00)
== END 2019-08-28 16:00 | disposition home or self-care (01) | DRG 872 ==
LOC: MW.ED 19:38 → OBSVTOIN 22:14 → MW.MS 22:14 → EEVIPCON 22:14 → MW.MS 08-25 12:33
PROVIDERS: ADMIT Student in an Organized Health Care Education/Training Program; ATTEND Student in an Organized Health Care Education/Training Program
DX: A41.50 Gram-negative sepsis, unspecified (principal); N39.0 Urinary tract infection, site not specified; N17.9 Acute kidney failure, unspecified; Z68.43 Body mass index [BMI] 50.0-59.9, adult; E66.01 Morbid (severe) obesity due to excess calories; F41.9 Anxiety disorder, unspecified; F32.9 Major depressive disorder, single episode, unspecified; E78.00 Pure hypercholesterolemia, unspecified; E87.6 Hypokalemia; Z90.49 Acquired absence of other specified parts of digestive tract; Z88.2 Allergy status to sulfonamides; Z88.1 Allergy status to other antibiotic agents; Z79.899 Other long term (current) drug therapy
CPT/HCPCS: 36415; 71046; 71046-26; 74176; 74176-26; 80048; 80053; 81001; 82962; 83036; 83605; 83690; 83735; 84100; 84484; 85025; 87040; 87045; 87046; 87077; 87081; 87086; 87088; 87186; 87324; 87804; 87880-QW; 87899; 93005; 94640; 96361; 96365; 96375; 99285; 99285-25; A9270-GY; J0696; J1335; J1644; J1885; J2185; J2543; J3370; J7030; J7040; J7050; J7620-GY

== ENCOUNTER 2019-09-11 20:32 | Inpatient (IN) | payer MEDICAID ==
[2019-09-11] MEDS ORDERED: Sodium Chloride 0.9% 10 ML Syringe FLUSH PRN ×2 (21:42→21:58)
[2019-09-11] MEDS ORDERED: Albuterol/Ipratropium 3.0-0.5 MG/3 ML Neb Soln NEB ONE (21:42)
[2019-09-11] MEDS ORDERED: Sodium Chloride 0.9% 2.5 ML Syringe FLUSH PRN ×2 (21:42→21:58)
[2019-09-11] MEDS ORDERED: Sodium Chloride 0.9% 1,000 ML IV ONE (21:58)
[2019-09-11 22:18] LABS: BLOOD UREA NITROGEN,BUN 16 mg/dL (7.0-18.0)
[2019-09-11 22:43] LABS: CARBON DIOXIDE,CO2 25.6 mmol/L (21.0-32.0); CHLORIDE,CL 98 mmol/L (98-107); GLUCOSE RANDOM 181 mg/dL (74-106); POTASSIUM,K 4.6 mmol/L (3.5-5.1); SODIUM,NA 135 mmol/L (136-145)
--- NOTE | 2019-09-11 22:52 | CR ---
INDICATION: Sepsis TECHNIQUE: Chest radiograph 2 views COMPARISON: 08/24/2019 FINDINGS: Severe degradation of image quality noted due to body habitus. Mediastinum: The mediastinum is normal in appearance. Mild stable cardiomegaly is noted. Lung: Mild bibasilar subsegmental atelectasis is seen. No sign of pleural effusion seen. No pneumothorax is identified. Bone and Soft tissue: Unremarkable for age. IMPRESSIONS: 1. Mild stable cardiomegaly is noted. 2. Mild bibasilar subsegmental atelectasis is seen. Dictated by Eddy Vidal MD @ 09/11/2019 10:50:18 PM Dictated by: Eddy Vidal MD @ 09/11/2019 22:50:24 (Electronically Signed)
[2019-09-11] MEDS ORDERED: Cefepime 1 GM in Premix Bag 1 BAG IV ONE (23:23)
[2019-09-11] MEDS ORDERED: Acetaminophen 500 MG Tab PO ONE (23:33)
[2019-09-11] MEDS ORDERED: Sodium Chloride 0.9% 1,000 ML IV SCH (23:45)
[2019-09-12] MEDS ORDERED: Acetaminophen 325 MG Tab PO PRN (00:39)
[2019-09-12] MEDS ORDERED: Ondansetron 4 MG/2 ML SDV IVPUSH PRN (00:39)
[2019-09-12] MEDS ORDERED: Meropenem 2 GM in Sodium Chloride 0.9% 100 ML IV SCH ×3 (00:45→14:00)
[2019-09-12] MEDS ORDERED: Heparin Sodium 5,000 Units/ML Vial SUBCUT SCH (00:45)
--- NOTE | 2019-09-12 00:47 | PCM.HP.2 ---
H&P History of Present Illness - General Date of Service: 09/12/19 - History of Present Illness Initial Comments - Free Text/Narative: 54 yo female with pmh of DM, morbid obesity, anxiety/depression who was admitted earlier this month for ESBL Ecoli bacteremia/UTI. She was treated with seven days of carbapenems. She reported to the ED today with complaints of fevers, chills and lighheadedness. She reports urinary frequency and urgency. She was noted to be tachycardic with HR in the 120s. She was given fluids, Vancomycin and cefepime in the ED. - Related Data Allergies/Adverse Reactions: Allergies Allergy/AdvReac Type Severity Reaction Status Date / Time sulfamethoxazole Allergy Hives Verified 09/12/19 02:37 [From Bactrim] trimethoprim [From Bactrim] Allergy Hives Verified 09/12/19 02:37 Home Medications: Home Meds Acetaminophen 325 mg PO ASDIRECTED 08/24/19 [History] Amitriptyline HCl 100 mg PO BEDTIME 08/24/19 [History] Citalopram Hydrobromide [Celexa] 40 mg PO DAILY 08/24/19 [History] Diclofenac Sodium [Voltaren] 4 gm TP ASDIRECTED 08/24/19 [History] Multivitamin [Multivitamins] 1 each PO DAILY 08/24/19 [History] Omeprazole 20 mg PO DAILY 08/24/19 [History] Pyridoxine HCl (Vitamin B6) [Pyridoxine HCl] 100 mg PO DAILY 08/24/19 [History] atorvaSTATin [Lipitor] 10 mg PO BEDTIME 08/24/19 [History] buPROPion HCl [Bupropion Xl] 150 mg PO DAILY 08/24/19 [History] Acetaminophen [Tylenol] 650 mg PO Q6H PRN tablet 08/28/19 [Rx] Ertapenem [INVanz] 1 gm IV DAILY #5 adv 08/28/19 [Rx] metFORMIN [Glucophage XR] 500 mg PO DAILY 14 Days #14 tab.er 08/28/19 [Rx] Past Medical History HEENT History: Reports: None Cardiovascular History: Reports: Other (See Below) Other Cardiovascular History: pt states last week she was told she had a heart attack Respiratory History: Reports: None Genitourinary History: Reports: None MANDREL PULLER History: Reports: None Musculoskeletal History: Reports: None Neurological History: Reports: None Psychiatric History: Reports: Anxiety, Depression, Mood Swings, PTSD Endocrine/Metabolic History: Reports: None Hematologic History: Reports: None Immunologic History: Reports: None Oncologic (Cancer) History: Reports: None Dermatologic History: Reports: None - Infectious Disease History Infectious Disease History: Reports: None - Past Surgical History GI Surgical History: Reports: Bariatric Procedure, Cholecystectomy Other GI Surgeries/Procedures: gastric bypass Female Surgical History: Reports: D&C, Tubal Ligation Social & Family History - Family History Family Medical History: Noncontributory - Tobacco Use Smoking Status *Q: Never Smoker - Caffeine Use Caffeine Use: Reports: Soda - Recreational Drug Use Recreational Drug Use: No H&P Review of Systems - Review of Systems: Review Of Systems: See Below Exam - Exam Exam: See Below - Vital Signs Vital Signs: Last Vital Signs Temp 38.5 C H 09/11/19 23:10 Pulse 113 H 09/11/19 23:10 Resp 18 09/11/19 23:10 BP 98/64 09/11/19 23:10 Pulse Ox 96 09/11/19 23:10 Weight: 145.6 kg - Exam General: Alert, Oriented HEENT: Mucosa Moist & [place] Neck: Supple, Trachea Midline Lungs: Clear to Auscultation, Normal Respiratory Effort Cardiovascular: Regular Rate, Regular Rhythm GI/Abdominal Exam: Normal Bowel Sounds, Soft, Non-Tender Extremities: Non-Tender, No Pedal Edema Skin: Warm, Dry, Intact - Patient Data Lab Results Last 24 hrs: Laboratory Results - last 24 hr 09/11/19 09/11/19 09/11/19 Range/Units 21:43 21:43 21:43 WBC 13.81 H (4.0-11.0) K/uL RBC 4.93 (4.30-5.90) M/uL Hgb 14.3 (12.0-16.0) g/dL Hct 44.2 (36.0-46.0) % MCV 89.7 (80.0-98.0) fL MCH 29.0 (27.0-32.0) pg MCHC 32.4 (31.0-37.0) g/dL RDW Std Deviation 49.4 (28.0-62.0) fl RDW Coeff of Aristeo 15 (11.0-15.0) % Plt Count 322 (150-400) K/uL MPV 9.80 (7.40-12.00) fL Neut % (Auto) 89.3 H (48.0-80.0) % Lymph % (Auto) 5.1 L (16.0-40.0) % [place] % (Auto) 4.5 (0.0-15.0) % Eos % (Auto) 1.0 (0.0-7.0) % Baso % (Auto) 0.1 (0.0-1.5) % Neut # (Auto) 12.2 H (1.4-5.7) K/uL Lymph # (Auto) 0.7 (0.6-2.4) K/uL [place] # (Auto) 0.6 (0.0-0.8) K/uL Eos # (Auto) 0.1 (0.0-0.7) K/uL Baso # (Auto) 0.0 (0.0-0.1) K/uL Nucleated RBC % 0.0 /100WBC Nucleated RBCs # 0 K/uL INR 1.12 Lactate (0.20-2.00) mmol/L Sodium 135 L (136-145) mmol/L Potassium 4.6 (3.5-5.1) mmol/L Chloride 98 (98-107) mmol/L Carbon Dioxide 25.6 (21.0-32.0) mmol/L BUN 16 (7.0-18.0) mg/dL Creatinine 1.7 H (0.6-1.0) mg/dL Est Cr Clr Drug Dosing 35.00 mL/min Estimated GFR (MDRD) 31.2 ml/min Glucose 181 H (74-106) mg/dL Calcium 8.7 (8.5-10.1) mg/dL Total Bilirubin 0.8 (0.2-1.0) mg/dL AST 27 (15-37) IU/L ALT 36 (14-63) IU/L Alkaline Phosphatase 166 H (46-116) U/L Troponin I < 0.050 (0.000-0.056) ng/mL Total Protein 7.9 (6.4-8.2) g/dL Albumin 3.2 L (3.4-5.0) g/dL Globulin 4.7 H (2.6-4.0) g/dL Albumin/Globulin Ratio 0.7 L (0.9-1.6) Urine Color Urine Appearance Urine pH (5.0-8.0) Ur Specific [place] (1.001-1.035) Urine Protein (NEGATIVE) mg/dL Urine Glucose (UA) (NEGATIVE) mg/dL Urine Ketones (NEGATIVE) mg/dL Urine Occult Blood (NEGATIVE) Urine Nitrite (NEGATIVE) Urine Bilirubin (NEGATIVE) Urine Urobilinogen (<2.0) EU/dL Ur Leukocyte Esterase (NEGATIVE) Urine RBC (0-2/HPF) Urine WBC (0-5/HPF) Ur Epithelial Cells (NONE-FEW) Urine Bacteria (NEGATIVE) Urine Mucus (NONE-MOD) 09/11/19 09/11/19 Range/Units 22:08 23:43 WBC (4.0-11.0) K/uL RBC (4.30-5.90) M/uL Hgb (12.0-16.0) g/dL Hct (36.0-46.0) % MCV (80.0-98.0) fL MCH (27.0-32.0) pg MCHC (31.0-37.0) g/dL RDW Std Deviation (28.0-62.0) fl RDW Coeff of Aristeo (11.0-15.0) % Plt Count (150-400) K/uL MPV (7.40-12.00) fL Neut % (Auto) (48.0-80.0) % Lymph % (Auto) (16.0-40.0) % [place] % (Auto) (0.0-15.0) % Eos % (Auto) (0.0-7.0) % Baso % (Auto) (0.0-1.5) % Neut # (Auto) (1.4-5.7) K/uL Lymph # (Auto) (0.6-2.4) K/uL [place] # (Auto) (0.0-0.8) K/uL Eos # (Auto) (0.0-0.7) K/uL Baso # (Auto) (0.0-0.1) K/uL Nucleated RBC % /100WBC Nucleated RBCs # K/uL INR Lactate 1.7 (0.20-2.00) mmol/L Sodium (136-145) mmol/L Potassium (3.5-5.1) mmol/L Chloride (98-107) mmol/L Carbon Dioxide (21.0-32.0) mmol/L BUN (7.0-18.0) mg/dL Creatinine (0.6-1.0) mg/dL Est Cr Clr Drug Dosing mL/min Estimated GFR (MDRD) ml/min Glucose (74-106) mg/dL Calcium (8.5-10.1) mg/dL Total Bilirubin (0.2-1.0) mg/dL AST (15-37) IU/L ALT (14-63) IU/L Alkaline Phosphatase (46-116) U/L Troponin I (0.000-0.056) ng/mL Total Protein (6.4-8.2) g/dL Albumin (3.4-5.0) g/dL Globulin (2.6-4.0) g/dL Albumin/Globulin Ratio (0.9-1.6) Urine Color YELLOW Urine Appearance SLT CLOUDY Urine pH 6.0 (5.0-8.0) Ur Specific [place] 1.020 (1.001-1.035) Urine Protein TRACE H (NEGATIVE) mg/dL Urine Glucose (UA) NEGATIVE (NEGATIVE) mg/dL Urine Ketones NEGATIVE (NEGATIVE) mg/dL Urine Occult Blood TRACE-INTACT H (NEGATIVE) Urine Nitrite NEGATIVE (NEGATIVE) Urine Bilirubin NEGATIVE (NEGATIVE) Urine Urobilinogen 0.2 (<2.0) EU/dL Ur Leukocyte Esterase SMALL H (NEGATIVE) Urine RBC 0-1 (0-2/HPF) Urine WBC 2-6 (0-5/HPF) Ur Epithelial Cells MODERATE (NONE-FEW) Urine Bacteria 1+ H (NEGATIVE) Urine Mucus LIGHT (NONE-MOD) Result Diagrams: 09/13/19 05:58 09/13/19 05:58 Shaquille Results Last 24 hrs: Microbiology 09/11/19 22:15 Influenza Type A Antigen Screen - Final Nasopharyngeal Swab NEGATIVE INFLUENZA A VIRUS AG REFERENCE RANGE: NEGATIVE Influenza Type B Antigen Screen - Final NEGATIVE INFLUENZA B VIRUS AG REFERENCE RANGE: NEGATIVE Sepsis Event Note - Evaluation Sepsis Screening Result: No Definite Risk - Focused Exam Vital Signs: Vital Signs Temp Pulse Resp BP Pulse Ox 01/23/20 23:10 38.5 C H 113 H 18 98/64 96 09/11/19 22:35 115 H 19 118/69 96 09/11/19 22:05 123 H 20 133/75 95 09/11/19 21:43 37.3 C 123 H 25 H 113/70 94 L Date Exam was Performed: 09/13/19 Time Exam was Performed: 11:59 Problem List Initiated/Reviewed/Updated: Yes Orders Last 24hrs: Active Orders 24 hr Category Date Time Status Antiembolic Devices [RC] PER UNIT ROUTINE Care 09/12/19 00:40 Active Cardiac Monitoring [RC] CONTINUOUS Care 09/12/19 00:39 Active EKG 12 Lead [EKG Documentation Completion] [RC] STAT Care 09/11/19 21:43 Active Oxygen Therapy [RC] PRN Care 09/12/19 00:39 Active RT Aerosol Therapy [RC] ASDIRECTED Care 09/11/19 21:42 Active VTE/DVT Education [RC] PER UNIT ROUTINE Care 09/12/19 00:39 Active Vital Signs [RC] Q4H Care 09/12/19 00:39 Active [employer] Diet [DIET] Diet 09/12/19 Breakfast Active BASIC METABOLIC PANEL,BMP [CHEM] AM Lab 09/12/19 05:11 Ordered CBC WITH AUTO DIFF [HEME] AM Lab 09/12/19 05:11 Ordered CULTURE BLOOD [BC] Stat Lab 09/11/19 22:08 Received CULTURE BLOOD [BC] Stat Lab 09/11/19 22:15 Received CULTURE URINE [RM] Stat Lab 09/11/19 23:43 Received Acetaminophen [Tylenol] Med 09/12/19 00:39 Active 650 mg PO Q4H PRN Heparin Sodium Med 09/12/19 00:45 Active 5,000 units SUBCUT Q8H Meropenem [Merrem] 2 gm Med 09/12/19 00:45 Active Sodium Chloride 0.9% [Normal Saline] 100 ml IV Q8H Ondansetron [Zofran] Med 09/12/19 00:39 Active 4 mg IVPUSH Q4H PRN Sodium Chloride 0.9% [Normal Saline] 1,000 ml Med 09/11/19 23:45 Active IV ASDIRECTED Sodium Chloride 0.9% [Normal Saline] 1,000 ml Med 09/12/19 00:45 Active IV ASDIRECTED Sodium Chloride 0.9% [Saline Flush] Med 09/11/19 21:42 Active 10 ml FLUSH ASDIRECTED PRN Sodium Chloride 0.9% [Saline Flush] Med 09/11/19 21:58 Active 10 ml FLUSH ASDIRECTED PRN Sodium Chloride 0.9% [Saline Flush] Med 09/11/19 21:42 Active 2.5 ml FLUSH ASDIRECTED PRN Sodium Chloride 0.9% [Saline Flush] Med 09/11/19 21:58 Active 2.5 ml FLUSH ASDIRECTED PRN Vancomycin 1 gm Med 09/11/19 23:23 Active Sodium Chloride 0.9% [Normal Saline (AdvBag)] 250 ml IV ONETIME Blood Culture x2 Reflex Set [OM.PC] Stat Ot 09/11/19 21:58 Ordered Saline Lock Insert [OM.PC] Stat Ot 09/11/19 21:42 Ordered Saline Lock Insert [OM.PC] Stat Ot 09/11/19 21:58 Ordered Sequential Compression Device [OM.PC] Per Unit Routine Ot 09/12/19 00:39 Ordered Severe Sepsis Onset Time [OM.PC] Stat Ot 09/11/19 21:58 Ordered Resuscitation Status Routine Resus Stat 09/12/19 00:39 Ordered Medication Orders Acetaminophen (Tylenol) 650 mg PO Q4H PRN PRN Reason: Pain (Mild 1-3)/fever Heparin Sodium (Porcine) (Heparin Sodium) 5,000 units SUBCUT Q8H [facility] Vancomycin HCl 1 gm/ Sodium (Chloride) 250 mls @ 166 mls/hr IV ONETIME ONE Stop: 09/12/19 00:53 Last Admin: 09/11/19 23:55 Dose: 166 mls/hr Infusion: 09/11/19 23:55 Dose: 166 mls/hr Admin: 09/11/19 23:44 Dose: 166 mls/hr Sodium Chloride (Normal Saline) 1,000 mls @ 999 mls/hr IV ASDIRECTED [facility] Last Admin: 09/11/19 23:37 Dose: 999 mls/hr Meropenem 2 gm/ Sodium (Chloride) 100 mls @ 100 mls/hr IV Q8H [place] Sodium Chloride (Normal Saline) 1,000 mls @ 125 mls/hr IV ASDIRECTED [facility] Ondansetron HCl (Zofran) 4 mg IVPUSH Q4H PRN PRN Reason: Nausea Sodium Chloride (Saline Flush) 10 ml FLUSH ASDIRECTED PRN PRN Reason: Keep Vein Open Last Admin: 09/11/19 22:14 Dose: 10 ml Sodium Chloride (Saline Flush) 2.5 ml FLUSH ASDIRECTED PRN PRN Reason: Keep Vein Open Last Admin: 09/11/19 22:13 Dose: 2.5 ml Sodium Chloride (Saline Flush) 10 ml FLUSH ASDIRECTED PRN PRN Reason: Keep Vein Open Last Admin: 09/11/19 22:14 Dose: 10 ml Sodium Chloride (Saline Flush) 2.5 ml FLUSH ASDIRECTED PRN PRN Reason: Keep Vein Open Last Admin: 09/11/19 22:14 Dose: 2.5 ml Assessment/Plan Comment:: 54 yo female admitted for UTI and sepsis. We will treat with meropenem due to history of ESBL. Patient has responded well to IV fluids with improvement in her tachycardia and symptoms. Blood and urine cultures have been collected.
[2019-09-12] MEDS: Sodium Chloride 0.9% 1,000 ML IV SCH ×4 (01:25→19:46)
[2019-09-12] MEDS: Heparin Sodium 5,000 Units/ML Vial SUBCUT SCH ×3 (02:39→18:56)
[2019-09-12] MEDS: Meropenem 2 GM in Sodium Chloride 0.9% 100 ML IV SCH ×2 (02:40→11:22)
[2019-09-12] MEDS: Insulin Aspart 100 Units/ML 3 ML Pen SUBCUT SCH ×3 (07:52→17:30)
--- NOTE | 2019-09-12 08:35 | PCM.PN ---
- General Info Date of Service: 09/12/19 Subjective Update: Patient admitted for sepsis secondary to UTI. On admission she was tachycardic and had a fever. Those have resolved and she feels better. Denies issues eating or drinking. - Review of Systems General: Reports: No Symptoms HEENT: Reports: No Symptoms Pulmonary: Reports: No Symptoms, Shortness of Breath Cardiovascular: Reports: No Symptoms Gastrointestinal: Reports: No Symptoms Genitourinary: Reports: No Symptoms Musculoskeletal: Reports: No Symptoms Skin: Reports: No Symptoms Neurological: Reports: No Symptoms Psychiatric: Reports: No Symptoms - Patient Data Vitals - Most Recent: Last Vital Signs Temp 99.7 F 09/12/19 07:00 Pulse 85 09/12/19 07:00 Resp 18 09/12/19 07:00 BP 102/60 09/12/19 07:00 Pulse Ox 97 09/12/19 07:00 Weight - Most Recent: 149 kg I&O - Last 24 Hours: Intake & Output 09/11/19 09/12/19 09/12/19 22:59 06:59 14:59 Intake Total 185 Output Total 150 Balance 35 Lab Results Last 24 Hours: Laboratory Results - last 24 hr 09/11/19 09/11/19 09/11/19 Range/Units 21:43 21:43 21:43 WBC 13.81 H (4.0-11.0) K/uL RBC 4.93 (4.30-5.90) M/uL Hgb 14.3 (12.0-16.0) g/dL Hct 44.2 (36.0-46.0) % MCV 89.7 (80.0-98.0) fL MCH 29.0 (27.0-32.0) pg MCHC 32.4 (31.0-37.0) g/dL RDW Std Deviation 49.4 (28.0-62.0) fl RDW Coeff of Aristeo 15 (11.0-15.0) % Plt Count 322 (150-400) K/uL MPV 9.80 (7.40-12.00) fL Neut % (Auto) 89.3 H (48.0-80.0) % Lymph % (Auto) 5.1 L (16.0-40.0) % [place] % (Auto) 4.5 (0.0-15.0) % Eos % (Auto) 1.0 (0.0-7.0) % Baso % (Auto) 0.1 (0.0-1.5) % Neut # (Auto) 12.2 H (1.4-5.7) K/uL Lymph # (Auto) 0.7 (0.6-2.4) K/uL Henry # (Auto) 0.6 (0.0-0.8) K/uL Eos # (Auto) 0.1 (0.0-0.7) K/uL Baso # (Auto) 0.0 (0.0-0.1) K/uL Nucleated RBC % 0.0 /100WBC Nucleated RBCs # 0 K/uL INR 1.12 Lactate (0.20-2.00) mmol/L Sodium 135 L (136-145) mmol/L Potassium 4.6 (3.5-5.1) mmol/L Chloride 98 (98-107) mmol/L Carbon Dioxide 25.6 (21.0-32.0) mmol/L BUN 16 (7.0-18.0) mg/dL Creatinine 1.7 H (0.6-1.0) mg/dL Est Cr Clr Drug Dosing 35.00 mL/min Estimated GFR (MDRD) 31.2 ml/min Glucose 181 H (74-106) mg/dL POC Glucose (60-110) mg/dL Calcium 8.7 (8.5-10.1) mg/dL Total Bilirubin 0.8 (0.2-1.0) mg/dL AST 27 (15-37) IU/L ALT 36 (14-63) IU/L Alkaline Phosphatase 166 H (46-116) U/L Troponin I < 0.050 (0.000-0.056) ng/mL Total Protein 7.9 (6.4-8.2) g/dL Albumin 3.2 L (3.4-5.0) g/dL Globulin 4.7 H (2.6-4.0) g/dL Albumin/Globulin Ratio 0.7 L (0.9-1.6) Urine Color Urine Appearance Urine pH (5.0-8.0) Ur Specific [place] (1.001-1.035) Urine Protein (NEGATIVE) mg/dL Urine Glucose (UA) (NEGATIVE) mg/dL Urine Ketones (NEGATIVE) mg/dL Urine Occult Blood (NEGATIVE) Urine Nitrite (NEGATIVE) Urine Bilirubin (NEGATIVE) Urine Urobilinogen (<2.0) EU/dL Ur Leukocyte Esterase (NEGATIVE) Urine RBC (0-2/HPF) Urine WBC (0-5/HPF) Ur Epithelial Cells (NONE-FEW) Urine Bacteria (NEGATIVE) Urine Mucus (NONE-MOD) 09/11/19 09/11/19 09/12/19 Range/Units 22:08 23:43 05:35 WBC 10.51 (4.0-11.0) K/uL RBC 4.24 L (4.30-5.90) M/uL Hgb 12.1 (12.0-16.0) g/dL Hct 38.6 (36.0-46.0) % MCV 91.0 (80.0-98.0) fL MCH 28.5 (27.0-32.0) pg MCHC 31.3 (31.0-37.0) g/dL RDW Std Deviation 50.4 (28.0-62.0) fl RDW Coeff of Aristeo 15 (11.0-15.0) % Plt Count 263 (150-400) K/uL MPV 9.50 (7.40-12.00) fL Neut % (Auto) 84.8 H (48.0-80.0) % Lymph % (Auto) 6.8 L (16.0-40.0) % [place] % (Auto) 6.4 (0.0-15.0) % Eos % (Auto) 1.8 (0.0-7.0) % Baso % (Auto) 0.2 (0.0-1.5) % Neut # (Auto) 8.9 H (1.4-5.7) K/uL Lymph # (Auto) 0.7 (0.6-2.4) K/uL [place] # (Auto) 0.7 (0.0-0.8) K/uL Eos # (Auto) 0.2 (0.0-0.7) K/uL Baso # (Auto) 0.0 (0.0-0.1) K/uL Nucleated RBC % 0.0 /100WBC Nucleated RBCs # 0 K/uL INR Lactate 1.7 (0.20-2.00) mmol/L Sodium (136-145) mmol/L Potassium (3.5-5.1) mmol/L Chloride (98-107) mmol/L Carbon Dioxide (21.0-32.0) mmol/L BUN (7.0-18.0) mg/dL Creatinine (0.6-1.0) mg/dL Est Cr Clr Drug Dosing mL/min Estimated GFR (MDRD) ml/min Glucose (74-106) mg/dL POC Glucose (60-110) mg/dL Calcium (8.5-10.1) mg/dL Total Bilirubin (0.2-1.0) mg/dL AST (15-37) IU/L ALT (14-63) IU/L Alkaline Phosphatase (46-116) U/L Troponin I (0.000-0.056) ng/mL Total Protein (6.4-8.2) g/dL Albumin (3.4-5.0) g/dL Globulin (2.6-4.0) g/dL Albumin/Globulin Ratio (0.9-1.6) Urine Color YELLOW Urine Appearance SLT CLOUDY Urine pH 6.0 (5.0-8.0) Ur Specific [place] 1.020 (1.001-1.035) Urine Protein TRACE H (NEGATIVE) mg/dL Urine Glucose (UA) NEGATIVE (NEGATIVE) mg/dL Urine Ketones NEGATIVE (NEGATIVE) mg/dL Urine Occult Blood TRACE-INTACT H (NEGATIVE) Urine Nitrite NEGATIVE (NEGATIVE) Urine Bilirubin NEGATIVE (NEGATIVE) Urine Urobilinogen 0.2 (<2.0) EU/dL Ur Leukocyte Esterase SMALL H (NEGATIVE) Urine RBC 0-1 (0-2/HPF) Urine WBC 2-6 (0-5/HPF) Ur Epithelial Cells MODERATE (NONE-FEW) Urine Bacteria 1+ H (NEGATIVE) Urine Mucus LIGHT (NONE-MOD) 09/12/19 09/12/19 Range/Units 05:35 06:07 WBC (4.0-11.0) K/uL RBC (4.30-5.90) M/uL Hgb (12.0-16.0) g/dL Hct (36.0-46.0) % MCV (80.0-98.0) fL MCH (27.0-32.0) pg MCHC (31.0-37.0) g/dL RDW Std Deviation (28.0-62.0) fl RDW Coeff of Aristeo (11.0-15.0) % Plt Count (150-400) K/uL MPV (7.40-12.00) fL Neut % (Auto) (48.0-80.0) % Lymph % (Auto) (16.0-40.0) % Henry % (Auto) (0.0-15.0) % Eos % (Auto) (0.0-7.0) % Baso % (Auto) (0.0-1.5) % Neut # (Auto) (1.4-5.7) K/uL Lymph # (Auto) (0.6-2.4) K/uL [place] # (Auto) (0.0-0.8) K/uL Eos # (Auto) (0.0-0.7) K/uL Baso # (Auto) (0.0-0.1) K/uL Nucleated RBC % /100WBC Nucleated RBCs # K/uL INR Lactate (0.20-2.00) mmol/L Sodium 138 (136-145) mmol/L Potassium 4.0 (3.5-5.1) mmol/L Chloride 103 (98-107) mmol/L Carbon Dioxide 26.0 (21.0-32.0) mmol/L BUN 16 (7.0-18.0) mg/dL Creatinine 1.7 H (0.6-1.0) mg/dL Est Cr Clr Drug Dosing 26.86 mL/min Estimated GFR (MDRD) 31.2 ml/min Glucose 154 H (74-106) mg/dL POC Glucose 146 H (60-110) mg/dL Calcium 7.7 L (8.5-10.1) mg/dL Total Bilirubin (0.2-1.0) mg/dL AST (15-37) IU/L ALT (14-63) IU/L Alkaline Phosphatase (46-116) U/L Troponin I (0.000-0.056) ng/mL Total Protein (6.4-8.2) g/dL Albumin (3.4-5.0) g/dL Globulin (2.6-4.0) g/dL Albumin/Globulin Ratio (0.9-1.6) Urine Color Urine Appearance Urine pH (5.0-8.0) Ur Specific [place] (1.001-1.035) Urine Protein (NEGATIVE) mg/dL Urine Glucose (UA) (NEGATIVE) mg/dL Urine Ketones (NEGATIVE) mg/dL Urine Occult Blood (NEGATIVE) Urine Nitrite (NEGATIVE) Urine Bilirubin (NEGATIVE) Urine Urobilinogen (<2.0) EU/dL Ur Leukocyte Esterase (NEGATIVE) Urine RBC (0-2/HPF) Urine WBC (0-5/HPF) Ur Epithelial Cells (NONE-FEW) Urine Bacteria (NEGATIVE) Urine Mucus (NONE-MOD) Shaquille Results Last 24 Hours: Microbiology 09/11/19 22:15 Influenza Type A Antigen Screen - Final Nasopharyngeal Swab NEGATIVE INFLUENZA A VIRUS AG REFERENCE RANGE: NEGATIVE Influenza Type B Antigen Screen - Final NEGATIVE INFLUENZA B VIRUS AG REFERENCE RANGE: NEGATIVE Med Orders - Current: Current Medications Acetaminophen (Tylenol) 650 mg PO Q4H PRN PRN Reason: Pain (Mild 1-3)/fever Atorvastatin Calcium (Lipitor) 10 mg PO BEDTIME [facility] Bupropion HCl (Wellbutrin Xl) 150 mg PO DAILY [facility] Heparin Sodium (Porcine) (Heparin Sodium) 5,000 units SUBCUT Q8H [facility] Last Admin: 09/12/19 02:39 Dose: 5,000 units Sodium Chloride (Normal Saline) 1,000 mls @ 999 mls/hr IV ASDIRECTED [facility] Last Admin: 09/11/19 23:37 Dose: 999 mls/hr Sodium Chloride (Normal Saline) 1,000 mls @ 125 mls/hr IV ASDIRECTED [facility] Last Admin: 09/12/19 02:32 Dose: 125 mls/hr Meropenem 2 gm/ Sodium (Chloride) 100 mls @ 100 mls/hr IV Q8H [facility] Last Admin: 09/12/19 02:40 Dose: 100 mls/hr Insulin Aspart (Novolog) 0 unit SUBCUT TIDAC [facility]; Protocol Last Admin: 09/12/19 07:52 Dose: Not Given Non-Formulary Medication (Amitriptyline Hcl [Amitriptyline Hcl]) 100 mg PO BEDTIME [facility] Non-Formulary Medication (Citalopram Hydrobromide [Celexa]) 40 mg PO DAILY [facility] Non-Formulary Medication (Multivitamin [Multivitamins]) 1 each PO DAILY [facility] Non-Formulary Medication (Omeprazole [Omeprazole]) 20 mg PO DAILY [facility] Ondansetron HCl (Zofran) 4 mg IVPUSH Q4H PRN PRN Reason: Nausea Pyridoxine HCl (Vitamin B6-Pyridoxine) 100 mg PO DAILY [facility] Sodium Chloride (Saline Flush) 10 ml FLUSH ASDIRECTED PRN PRN Reason: Keep Vein Open Last Admin: 09/11/19 22:14 Dose: 10 ml Sodium Chloride (Saline Flush) 2.5 ml FLUSH ASDIRECTED PRN PRN Reason: Keep Vein Open Last Admin: 09/11/19 22:13 Dose: 2.5 ml Sodium Chloride (Saline Flush) 10 ml FLUSH ASDIRECTED PRN PRN Reason: Keep Vein Open Last Admin: 09/11/19 22:14 Dose: 10 ml Sodium Chloride (Saline Flush) 2.5 ml FLUSH ASDIRECTED PRN PRN Reason: Keep Vein Open Last Admin: 09/11/19 22:14 Dose: 2.5 ml Discontinued Medications Acetaminophen (Tylenol Extra Strength) 1,000 mg PO ONETIME ONE Stop: 09/11/19 23:34 Last Admin: 09/11/19 23:44 Dose: 1,000 mg Albuterol/Ipratropium (Duoneb 3.0-0.5 Mg/3 Ml) 3 ml NEB ONETIME ONE Stop: 09/11/19 21:43 Last Admin: 09/11/19 21:48 Dose: 3 ml Heparin Sodium (Porcine) (Heparin Sodium) 5,000 units SUBCUT Q8H [facility] Last Admin: 09/12/19 03:06 Dose: Not Given Sodium Chloride (Normal Saline) 1,000 mls @ 999 mls/hr IV .Bolus ONE Stop: 09/11/19 22:58 Last Admin: 09/11/19 22:12 Dose: 999 mls/hr Cefepime HCl 1 gm/ Premix 50 mls @ 100 mls/hr IV ONETIME ONE Stop: 09/11/19 23:52 Last Admin: 09/12/19 01:25 Dose: Not Given Vancomycin HCl 1 gm/ Sodium (Chloride) 250 mls @ 166 mls/hr IV ONETIME ONE Stop: 09/12/19 00:53 Last Admin: 01/23/20 23:55 Dose: 166 mls/hr Meropenem 2 gm/ Sodium (Chloride) 100 mls @ 100 mls/hr IV Q8H [facility] Last Admin: 09/12/19 03:07 Dose: Not Given - Exam Quality Assessment: Supplemental Oxygen General: Alert, Oriented, Cooperative Lungs: Clear to Auscultation, Normal Respiratory Effort Cardiovascular: Regular Rate, Regular Rhythm GI/Abdominal Exam: Normal Bowel Sounds, Soft, Non-Tender, No Distention Extremities: Pedal Edema (minimal) Skin: Warm, Dry Neurological: No New Focal Deficit Psy/Mental Status: Alert, Normal Affect, Normal Mood Sepsis Event Note - Evaluation Sepsis Screening Result: Sepsis Risk - Focused Exam Vital Signs: Vital Signs Temp Pulse Resp BP Pulse Ox Pulse Ox 09/12/19 07:00 99.7 F 85 18 102/60 97 09/12/19 02:30 97.0 F 93 18 109/65 92 L 92 L 09/12/19 01:26 97.4 F 102 H 20 105/63 95 09/11/19 23:10 101.3 F H 113 H 18 98/64 96 09/11/19 22:35 115 H 19 118/69 96 09/11/19 22:05 123 H 20 133/75 95 09/11/19 21:43 99.1 F 123 H 25 H 113/70 94 L Date Exam was Performed: 09/12/19 Time Exam was Performed: 11:02 - Problem List Review Problem List Initiated/Reviewed/Updated: Yes - My Orders Last 24 Hours: My Active Orders 09/12/19 07:10 Intake and Output Strict [RC] Q12H 09/12/19 07:11 Accu Check [Blood Glucose Check, Bedside] [RC] TIDMEALS 09/12/19 07:30 Insulin Aspart [NovoLOG] See Protocol SUBCUT TIDAC 09/12/19 09:00 Citalopram Hydrobromide [Celexa] 40 mg PO DAILY Multivitamin [Multivitamins] 1 each PO DAILY Omeprazole [Omeprazole] 20 mg PO DAILY Vitamin B6-pyridOXINE 100 mg PO DAILY buPROPion [Wellbutrin XL] 150 mg PO DAILY 09/12/19 21:00 Amitriptyline HCl [Amitriptyline HCl] 100 mg PO BEDTIME atorvaSTATin [Lipitor] 10 mg PO BEDTIME - Plan Plan:: 1. Sepsis secondary to UTI with hx of ESBL UTI- tachycardia, fever and white count has resolved. Switch from Meropenem to Ertapenem for once daily dosing. Blood and urine cultures pending. Continue on IVF. Tylenol for fever. Likely will need total 10-14 days of IV antibiotics. 2. DMII- accuchecks and sliding scale. Ha1c 2 weeks ago was 7.3% 3. Chronic conditions- anxiety/depression/hyperlipidemia- continue home meds.
[2019-09-12] MEDS: Citalopram 20 MG Tab PO SCH (09:24)
[2019-09-12] MEDS: Vitamin B6-pyridOXINE 50 MG Tab PO SCH (09:25)
[2019-09-12] MEDS: buPROPion 150 MG Tab.ER PO SCH (09:25)
[2019-09-12] MEDS: Multivitamin Tab PO SCH (09:26)
[2019-09-12] MEDS: Omeprazole 20 MG Cap.CR PO SCH (09:26)
[2019-09-12] MEDS: Ertapenem 1 GM in Sodium Chloride 0.9% 50 ML IV SCH (11:29)
[2019-09-12] MEDS: Amitriptyline 25 MG Tab PO SCH (20:55)
[2019-09-12] MEDS: atorvaSTATin 10 MG Tab PO SCH (20:55)
[2019-09-13] MEDS: Heparin Sodium 5,000 Units/ML Vial SUBCUT SCH ×3 (02:08→18:04)
[2019-09-13] MEDS: Sodium Chloride 0.9% 1,000 ML IV SCH (03:50)
[2019-09-13] MEDS: Insulin Aspart 100 Units/ML 3 ML Pen SUBCUT SCH ×3 (06:42→17:56)
[2019-09-13 06:47] LABS: CARBON DIOXIDE,CO2 28.6 mmol/L (21.0-32.0); POTASSIUM,K 3.9 mmol/L (3.5-5.1)
[2019-09-13] MEDS: Vitamin B6-pyridOXINE 50 MG Tab PO SCH (08:53)
[2019-09-13] MEDS: Citalopram 20 MG Tab PO SCH (08:53)
[2019-09-13] MEDS: Omeprazole 20 MG Cap.CR PO SCH (08:54)
[2019-09-13] MEDS: buPROPion 150 MG Tab.ER PO SCH (08:55)
[2019-09-13] MEDS: Multivitamin Tab PO SCH (08:56)
[2019-09-13] MEDS: Ertapenem 1 GM in Sodium Chloride 0.9% 50 ML IV SCH (11:16)
--- NOTE | 2019-09-13 11:59 | PCM.PN ---
- General Info Date of Service: 09/13/19 - Review of Systems Systems Review Comment:: feeling better, no abdominal pain. - Patient Data Vitals - Most Recent: Last Vital Signs Temp 36.3 C 09/13/19 10:54 Pulse 78 09/13/19 10:54 Resp 18 09/13/19 10:54 BP 117/78 09/13/19 10:54 Pulse Ox 96 09/13/19 10:54 Weight - Most Recent: 149 kg I&O - Last 24 Hours: Intake & Output 09/12/19 09/13/19 09/13/19 22:59 06:59 14:59 Intake Total 2880 2713 Output Total 1850 2000 Balance 1030 713 Lab Results Last 24 Hours: Laboratory Results - last 24 hr 09/12/19 09/12/19 09/12/19 Range/Units 11:56 15:35 20:58 WBC (4.0-11.0) K/uL RBC (4.30-5.90) M/uL Hgb (12.0-16.0) g/dL Hct (36.0-46.0) % MCV (80.0-98.0) fL MCH (27.0-32.0) pg MCHC (31.0-37.0) g/dL RDW Std Deviation (28.0-62.0) fl RDW Coeff of Aristeo (11.0-15.0) % Plt Count (150-400) K/uL MPV (7.40-12.00) fL Neut % (Auto) (48.0-80.0) % Lymph % (Auto) (16.0-40.0) % [place] % (Auto) (0.0-15.0) % Eos % (Auto) (0.0-7.0) % Baso % (Auto) (0.0-1.5) % Neut # (Auto) (1.4-5.7) K/uL Lymph # (Auto) (0.6-2.4) K/uL [place] # (Auto) (0.0-0.8) K/uL Eos # (Auto) (0.0-0.7) K/uL Baso # (Auto) (0.0-0.1) K/uL Nucleated RBC % /100WBC Nucleated RBCs # K/uL Sodium (136-145) mmol/L Potassium (3.5-5.1) mmol/L Chloride (98-107) mmol/L Carbon Dioxide (21.0-32.0) mmol/L BUN (7.0-18.0) mg/dL Creatinine (0.6-1.0) mg/dL Est Cr Clr Drug Dosing mL/min Estimated GFR (MDRD) ml/min Glucose (74-106) mg/dL POC Glucose 86 116 H 95 (60-110) mg/dL Calcium (8.5-10.1) mg/dL 09/13/19 09/13/19 09/13/19 Range/Units 05:58 05:58 06:02 WBC 5.67 (4.0-11.0) K/uL RBC 3.87 L (4.30-5.90) M/uL Hgb 11.0 L (12.0-16.0) g/dL Hct 35.2 L (36.0-46.0) % MCV 91.0 (80.0-98.0) fL MCH 28.4 (27.0-32.0) pg MCHC 31.3 (31.0-37.0) g/dL RDW Std Deviation 50.1 (28.0-62.0) fl RDW Coeff of Aristeo 15 (11.0-15.0) % Plt Count 230 (150-400) K/uL MPV 9.40 (7.40-12.00) fL Neut % (Auto) 52.2 (48.0-80.0) % Lymph % (Auto) 31.9 (16.0-40.0) % [place] % (Auto) 10.6 (0.0-15.0) % Eos % (Auto) 4.8 (0.0-7.0) % Baso % (Auto) 0.5 (0.0-1.5) % Neut # (Auto) 3.0 (1.4-5.7) K/uL Lymph # (Auto) 1.8 (0.6-2.4) K/uL [place] # (Auto) 0.6 (0.0-0.8) K/uL Eos # (Auto) 0.3 (0.0-0.7) K/uL Baso # (Auto) 0.0 (0.0-0.1) K/uL Nucleated RBC % 0.0 /100WBC Nucleated RBCs # 0 K/uL Sodium 143 (136-145) mmol/L Potassium 3.9 (3.5-5.1) mmol/L Chloride 109 H (98-107) mmol/L Carbon Dioxide 28.6 (21.0-32.0) mmol/L BUN 12 (7.0-18.0) mg/dL Creatinine 1.2 H (0.6-1.0) mg/dL Est Cr Clr Drug Dosing 38.05 mL/min Estimated GFR (MDRD) 46.6 ml/min Glucose 133 H (74-106) mg/dL POC Glucose 118 H (60-110) mg/dL Calcium 8.0 L (8.5-10.1) mg/dL 09/13/19 Range/Units 10:44 WBC (4.0-11.0) K/uL RBC (4.30-5.90) M/uL Hgb (12.0-16.0) g/dL Hct (36.0-46.0) % MCV (80.0-98.0) fL MCH (27.0-32.0) pg MCHC (31.0-37.0) g/dL RDW Std Deviation (28.0-62.0) fl RDW Coeff of Aristeo (11.0-15.0) % Plt Count (150-400) K/uL MPV (7.40-12.00) fL Neut % (Auto) (48.0-80.0) % Lymph % (Auto) (16.0-40.0) % [place] % (Auto) (0.0-15.0) % Eos % (Auto) (0.0-7.0) % Baso % (Auto) (0.0-1.5) % Neut # (Auto) (1.4-5.7) K/uL Lymph # (Auto) (0.6-2.4) K/uL [place] # (Auto) (0.0-0.8) K/uL Eos # (Auto) (0.0-0.7) K/uL Baso # (Auto) (0.0-0.1) K/uL Nucleated RBC % /100WBC Nucleated RBCs # K/uL Sodium (136-145) mmol/L Potassium (3.5-5.1) mmol/L Chloride (98-107) mmol/L Carbon Dioxide (21.0-32.0) mmol/L BUN (7.0-18.0) mg/dL Creatinine (0.6-1.0) mg/dL Est Cr Clr Drug Dosing mL/min Estimated GFR (MDRD) ml/min Glucose (74-106) mg/dL POC Glucose 90 (60-110) mg/dL Calcium (8.5-10.1) mg/dL [place] Results Last 24 Hours: Microbiology 09/11/19 23:43 Urine Culture - Final Urine, Bladder Escherichia Coli Normal Urogenital Rajwinder 09/11/19 22:15 Aerobic Blood Culture - Preliminary Blood - Venous - Lab Draw NO GROWTH AFTER 1 DAY Anaerobic Blood Culture - Preliminary NO GROWTH AFTER 1 DAY 09/11/19 22:08 Aerobic Blood Culture - Preliminary Blood - Venous NO GROWTH AFTER 1 DAY Anaerobic Blood Culture - Preliminary NO GROWTH AFTER 1 DAY Med Orders - Current: Current Medications Acetaminophen (Tylenol) 650 mg PO Q4H PRN PRN Reason: Pain (Mild 1-3)/fever Amitriptyline HCl (Elavil) 100 mg PO BEDTIME [facility] Last Admin: 09/12/19 20:55 Dose: 100 mg Atorvastatin Calcium (Lipitor) 10 mg PO BEDTIME [facility] Last Admin: 09/12/19 20:55 Dose: 10 mg Bupropion HCl (Wellbutrin Xl) 150 mg PO DAILY [facility] Last Admin: 09/13/19 08:55 Dose: 150 mg Citalopram Hydrobromide (Celexa) 40 mg PO DAILY [facility] Last Admin: 09/13/19 08:53 Dose: 40 mg Heparin Sodium (Porcine) (Heparin Sodium) 5,000 units SUBCUT Q8H [facility] Last Admin: 09/13/19 11:07 Dose: 5,000 units Sodium Chloride (Normal Saline) 1,000 mls @ 999 mls/hr IV ASDIRECTED [facility] Last Admin: 09/11/19 23:37 Dose: 999 mls/hr Sodium Chloride (Normal Saline) 1,000 mls @ 125 mls/hr IV ASDIRECTED [facility] Last Admin: 09/13/19 03:50 Dose: 125 mls/hr Ertapenem 1 gm/ Sodium (Chloride) 50 mls @ 100 mls/hr IV Q24H [facility] Last Admin: 09/13/19 11:16 Dose: 100 mls/hr Insulin Aspart (Novolog) 0 unit SUBCUT TIDAC [facility]; Protocol Last Admin: 09/13/19 11:24 Dose: Not Given Multivitamins/Minerals/Vitamin C (Tab-A-Nhan) 1 tab PO DAILY [facility] Last Admin: 09/13/19 08:56 Dose: 1 tab Omeprazole (Omeprazole) 20 mg PO DAILY [facility] Last Admin: 09/13/19 08:54 Dose: 20 mg Ondansetron HCl (Zofran) 4 mg IVPUSH Q4H PRN PRN Reason: Nausea Pyridoxine HCl (Vitamin B6-Pyridoxine) 100 mg PO DAILY [facility] Last Admin: 09/13/19 08:53 Dose: 100 mg Sodium Chloride (Saline Flush) 10 ml FLUSH ASDIRECTED PRN PRN Reason: Keep Vein Open Last Admin: 09/11/19 22:14 Dose: 10 ml Sodium Chloride (Saline Flush) 2.5 ml FLUSH ASDIRECTED PRN PRN Reason: Keep Vein Open Last Admin: 09/11/19 22:13 Dose: 2.5 ml Sodium Chloride (Saline Flush) 10 ml FLUSH ASDIRECTED PRN PRN Reason: Keep Vein Open Last Admin: 09/11/19 22:14 Dose: 10 ml Sodium Chloride (Saline Flush) 2.5 ml FLUSH ASDIRECTED PRN PRN Reason: Keep Vein Open Last Admin: 09/11/19 22:14 Dose: 2.5 ml Discontinued Medications Acetaminophen (Tylenol Extra Strength) 1,000 mg PO ONETIME ONE Stop: 09/11/19 23:34 Last Admin: 09/11/19 23:44 Dose: 1,000 mg Albuterol/Ipratropium (Duoneb 3.0-0.5 Mg/3 Ml) 3 ml NEB ONETIME ONE Stop: 09/11/19 21:43 Last Admin: 09/11/19 21:48 Dose: 3 ml Heparin Sodium (Porcine) (Heparin Sodium) 5,000 units SUBCUT Q8H [facility] Last Admin: 09/12/19 03:06 Dose: Not Given Sodium Chloride (Normal Saline) 1,000 mls @ 999 mls/hr IV .Bolus ONE Stop: 09/11/19 22:58 Last Admin: 09/11/19 22:12 Dose: 999 mls/hr Cefepime HCl 1 gm/ Premix 50 mls @ 100 mls/hr IV ONETIME ONE Stop: 09/11/19 23:52 Last Admin: 09/12/19 01:25 Dose: Not Given Vancomycin HCl 1 gm/ Sodium (Chloride) 250 mls @ 166 mls/hr IV ONETIME ONE Stop: 09/12/19 00:53 Last Admin: 09/11/19 23:55 Dose: 166 mls/hr Meropenem 2 gm/ Sodium (Chloride) 100 mls @ 100 mls/hr IV Q8H [facility] Last Admin: 09/12/19 03:07 Dose: Not Given Meropenem 2 gm/ Sodium (Chloride) 100 mls @ 100 mls/hr IV Q8H [facility] Last Admin: 09/12/19 11:22 Dose: Not Given Meropenem 2 gm/ Sodium (Chloride) 100 mls @ 100 mls/hr IV Q12H [place] - Exam General: Alert, Oriented Lungs: Clear to Auscultation, Normal Respiratory Effort Cardiovascular: Regular Rate, Regular Rhythm GI/Abdominal Exam: Soft, Non-Tender Extremities: Non-Tender, No Pedal Edema Skin: Warm, Dry, Intact Sepsis Event Note - Evaluation Sepsis Screening Result: No Definite Risk - Focused Exam Vital Signs: Vital Signs Temp Pulse Resp BP Pulse Ox 09/13/19 10:54 36.3 C 78 18 117/78 96 09/13/19 07:29 36.9 C 67 15 110/58 L 94 L 09/13/19 04:30 36.4 C 73 16 107/57 L 95 Date Exam was Performed: 09/13/19 Time Exam was Performed: 11:56 - Problem List Review Problem List Initiated/Reviewed/Updated: Yes - Plan Plan:: 54 yo female admitted for sepsis from ESBL ecoli UTI. Sepsis: resolving will d/c fluids ESBL ecoli UTI: will continue ertapenem, will likely need picc line for outpatient IV therapy. MAYLIN: creatinine improving to 1.2
[2019-09-13] MEDS: Amitriptyline 25 MG Tab PO SCH (20:19)
[2019-09-13] MEDS: atorvaSTATin 10 MG Tab PO SCH (20:20)
[2019-09-14] MEDS: Heparin Sodium 5,000 Units/ML Vial SUBCUT SCH ×3 (03:33→18:50)
[2019-09-14 06:37] LABS: CARBON DIOXIDE,CO2 30.6 mmol/L (21.0-32.0); POTASSIUM,K 3.8 mmol/L (3.5-5.1)
[2019-09-14] MEDS: Insulin Aspart 100 Units/ML 3 ML Pen SUBCUT SCH ×3 (07:33→18:59)
--- NOTE | 2019-09-14 08:26 | PCM.PN ---
- General Info Date of Service: 09/14/19 Subjective Update: Patient doing well, no complaints, eating/drinking without issue. Afebrile - Review of Systems General: Reports: No Symptoms HEENT: Reports: No Symptoms Pulmonary: Reports: No Symptoms Cardiovascular: Reports: No Symptoms Gastrointestinal: Reports: No Symptoms Genitourinary: Reports: No Symptoms Musculoskeletal: Reports: No Symptoms Skin: Reports: No Symptoms Neurological: Reports: No Symptoms Psychiatric: Reports: No Symptoms - Patient Data Vitals - Most Recent: Last Vital Signs Temp 98 F 09/14/19 04:00 Pulse 77 09/14/19 04:00 Resp 17 09/14/19 04:00 BP 118/68 09/14/19 04:00 Pulse Ox 97 09/14/19 04:00 Weight - Most Recent: 145.6 kg I&O - Last 24 Hours: Intake & Output 09/13/19 09/14/19 09/14/19 22:59 06:59 14:59 Intake Total 2150 1000 Output Total 2000 1800 Balance 150 -800 Lab Results Last 24 Hours: Laboratory Results - last 24 hr 09/13/19 09/13/19 09/14/19 Range/Units 10:44 17:01 06:00 WBC 6.31 (4.0-11.0) K/uL RBC 4.02 L (4.30-5.90) M/uL Hgb 11.6 L (12.0-16.0) g/dL Hct 36.4 (36.0-46.0) % MCV 90.5 (80.0-98.0) fL MCH 28.9 (27.0-32.0) pg MCHC 31.9 (31.0-37.0) g/dL RDW Std Deviation 49.8 (28.0-62.0) fl RDW Coeff of Aristeo 15 (11.0-15.0) % Plt Count 255 (150-400) K/uL MPV 9.70 (7.40-12.00) fL Neut % (Auto) 56.3 (48.0-80.0) % Lymph % (Auto) 31.7 (16.0-40.0) % [place] % (Auto) 7.1 (0.0-15.0) % Eos % (Auto) 4.6 (0.0-7.0) % Baso % (Auto) 0.3 (0.0-1.5) % Neut # (Auto) 3.6 (1.4-5.7) K/uL Lymph # (Auto) 2.0 (0.6-2.4) K/uL [place] # (Auto) 0.5 (0.0-0.8) K/uL Eos # (Auto) 0.3 (0.0-0.7) K/uL Baso # (Auto) 0.0 (0.0-0.1) K/uL Nucleated RBC % 0.0 /100WBC Nucleated RBCs # 0 K/uL Sodium (136-145) mmol/L Potassium (3.5-5.1) mmol/L Chloride (98-107) mmol/L Carbon Dioxide (21.0-32.0) mmol/L BUN (7.0-18.0) mg/dL Creatinine (0.6-1.0) mg/dL Est Cr Clr Drug Dosing mL/min Estimated GFR (MDRD) ml/min Glucose (74-106) mg/dL POC Glucose 90 71 (60-110) mg/dL Calcium (8.5-10.1) mg/dL 09/14/19 Range/Units 06:00 WBC (4.0-11.0) K/uL RBC (4.30-5.90) M/uL Hgb (12.0-16.0) g/dL Hct (36.0-46.0) % MCV (80.0-98.0) fL MCH (27.0-32.0) pg MCHC (31.0-37.0) g/dL RDW Std Deviation (28.0-62.0) fl RDW Coeff of Aristeo (11.0-15.0) % Plt Count (150-400) K/uL MPV (7.40-12.00) fL Neut % (Auto) (48.0-80.0) % Lymph % (Auto) (16.0-40.0) % [place] % (Auto) (0.0-15.0) % Eos % (Auto) (0.0-7.0) % Baso % (Auto) (0.0-1.5) % Neut # (Auto) (1.4-5.7) K/uL Lymph # (Auto) (0.6-2.4) K/uL [place] # (Auto) (0.0-0.8) K/uL Eos # (Auto) (0.0-0.7) K/uL Baso # (Auto) (0.0-0.1) K/uL Nucleated RBC % /100WBC Nucleated RBCs # K/uL Sodium 143 (136-145) mmol/L Potassium 3.8 (3.5-5.1) mmol/L Chloride 107 (98-107) mmol/L Carbon Dioxide 30.6 (21.0-32.0) mmol/L BUN 10 (7.0-18.0) mg/dL Creatinine 1.2 H (0.6-1.0) mg/dL Est Cr Clr Drug Dosing 38.05 mL/min Estimated GFR (MDRD) 46.6 ml/min Glucose 105 (74-106) mg/dL POC Glucose (60-110) mg/dL Calcium 8.2 L (8.5-10.1) mg/dL [place] Results Last 24 Hours: Microbiology 09/11/19 22:15 Aerobic Blood Culture - Preliminary Blood - Venous - Lab Draw NO GROWTH AFTER 2 DAYS Anaerobic Blood Culture - Preliminary NO GROWTH AFTER 2 DAYS 09/11/19 22:08 Aerobic Blood Culture - Preliminary Blood - Venous NO GROWTH AFTER 2 DAYS Anaerobic Blood Culture - Preliminary NO GROWTH AFTER 2 DAYS 09/11/19 23:43 Urine Culture - Final Urine, Bladder Escherichia Coli Normal Urogenital Rajwinder Med Orders - Current: Current Medications Acetaminophen (Tylenol) 650 mg PO Q4H PRN PRN Reason: Pain (Mild 1-3)/fever Last Admin: 09/13/19 14:13 Dose: 650 mg Amitriptyline HCl (Elavil) 100 mg PO BEDTIME [facility] Last Admin: 09/13/19 20:19 Dose: 100 mg Atorvastatin Calcium (Lipitor) 10 mg PO BEDTIME [facility] Last Admin: 09/13/19 20:20 Dose: 10 mg Bupropion HCl (Wellbutrin Xl) 150 mg PO DAILY [facility] Last Admin: 09/13/19 08:55 Dose: 150 mg Citalopram Hydrobromide (Celexa) 40 mg PO DAILY [facility] Last Admin: 09/13/19 08:53 Dose: 40 mg Heparin Sodium (Porcine) (Heparin Sodium) 5,000 units SUBCUT Q8H [facility] Last Admin: 09/14/19 03:33 Dose: 5,000 units Ertapenem 1 gm/ Sodium (Chloride) 50 mls @ 100 mls/hr IV Q24H [facility] Last Admin: 09/13/19 11:16 Dose: 100 mls/hr Insulin Aspart (Novolog) 0 unit SUBCUT TIDAC [facility]; Protocol Last Admin: 09/14/19 07:33 Dose: Not Given Multivitamins/Minerals/Vitamin C (Tab-A-Nhan) 1 tab PO DAILY [facility] Last Admin: 09/13/19 08:56 Dose: 1 tab Omeprazole (Omeprazole) 20 mg PO DAILY [facility] Last Admin: 09/13/19 08:54 Dose: 20 mg Ondansetron HCl (Zofran) 4 mg IVPUSH Q4H PRN PRN Reason: Nausea Pyridoxine HCl (Vitamin B6-Pyridoxine) 100 mg PO DAILY [facility] Last Admin: 09/13/19 08:53 Dose: 100 mg Sodium Chloride (Saline Flush) 10 ml FLUSH ASDIRECTED PRN PRN Reason: Keep Vein Open Last Admin: 09/11/19 22:14 Dose: 10 ml Sodium Chloride (Saline Flush) 2.5 ml FLUSH ASDIRECTED PRN PRN Reason: Keep Vein Open Last Admin: 09/11/19 22:13 Dose: 2.5 ml Sodium Chloride (Saline Flush) 10 ml FLUSH ASDIRECTED PRN PRN Reason: Keep Vein Open Last Admin: 09/11/19 22:14 Dose: 10 ml Sodium Chloride (Saline Flush) 2.5 ml FLUSH ASDIRECTED PRN PRN Reason: Keep Vein Open Last Admin: 09/11/19 22:14 Dose: 2.5 ml Discontinued Medications Acetaminophen (Tylenol Extra Strength) 1,000 mg PO ONETIME ONE Stop: 09/11/19 23:34 Last Admin: 09/11/19 23:44 Dose: 1,000 mg Albuterol/Ipratropium (Duoneb 3.0-0.5 Mg/3 Ml) 3 ml NEB ONETIME ONE Stop: 09/11/19 21:43 Last Admin: 09/11/19 21:48 Dose: 3 ml Heparin Sodium (Porcine) (Heparin Sodium) 5,000 units SUBCUT Q8H [facility] Last Admin: 09/12/19 03:06 Dose: Not Given Sodium Chloride (Normal Saline) 1,000 mls @ 999 mls/hr IV .Bolus ONE Stop: 09/11/19 22:58 Last Admin: 09/11/19 22:12 Dose: 999 mls/hr Cefepime HCl 1 gm/ Premix 50 mls @ 100 mls/hr IV ONETIME ONE Stop: 09/11/19 23:52 Last Admin: 09/12/19 01:25 Dose: Not Given Vancomycin HCl 1 gm/ Sodium (Chloride) 250 mls @ 166 mls/hr IV ONETIME ONE Stop: 09/12/19 00:53 Last Admin: 09/11/19 23:55 Dose: 166 mls/hr Sodium Chloride (Normal Saline) 1,000 mls @ 999 mls/hr IV ASDIRECTED [facility] Last Admin: 09/11/19 23:37 Dose: 999 mls/hr Meropenem 2 gm/ Sodium (Chloride) 100 mls @ 100 mls/hr IV Q8H [facility] Last Admin: 09/12/19 03:07 Dose: Not Given Sodium Chloride (Normal Saline) 1,000 mls @ 125 mls/hr IV ASDIRECTED [facility] Last Admin: 09/13/19 03:50 Dose: 125 mls/hr Meropenem 2 gm/ Sodium (Chloride) 100 mls @ 100 mls/hr IV Q8H [facility] Last Admin: 09/12/19 11:22 Dose: Not Given Meropenem 2 gm/ Sodium (Chloride) 100 mls @ 100 mls/hr IV Q12H [facility] - Exam Quality Assessment: No: Supplemental Oxygen General: Alert, Oriented, Cooperative Lungs: Clear to Auscultation, Normal Respiratory Effort Cardiovascular: Regular Rate, Regular Rhythm GI/Abdominal Exam: Normal Bowel Sounds, Soft, Non-Tender, No Distention Extremities: No Pedal Edema Skin: Warm, Dry Neurological: No New Focal Deficit Psy/Mental Status: Alert, Normal Affect, Normal Mood Sepsis Event Note - Evaluation Sepsis Screening Result: No Definite Risk - Focused Exam Vital Signs: Vital Signs Temp Pulse Resp BP Pulse Ox 09/14/19 04:00 98 F 77 17 118/68 97 09/13/19 23:54 97.8 F 74 17 100/63 98 Date Exam was Performed: 09/14/19 Time Exam was Performed: 10:06 - Problem List Review Problem List Initiated/Reviewed/Updated: Yes - Plan Plan:: 1. Sepsis secondary to ESBL Ecoli UTI- sepsis resolved, continue Ertapenem for infection. Will need outpatient PICC line for 14 days of antibiotics. Blood cultures negative so far. Recheck UA today to see if she is clearing the infection. 2. DMII- continue sliding scale and accuchecks 3. Chronic conditions- anxiety/depression/hyperlipidemia- continue home meds.
[2019-09-14] MEDS: Omeprazole 20 MG Cap.CR PO SCH (09:41)
[2019-09-14] MEDS: Multivitamin Tab PO SCH (09:42)
[2019-09-14] MEDS: Vitamin B6-pyridOXINE 50 MG Tab PO SCH (09:42)
[2019-09-14] MEDS: buPROPion 150 MG Tab.ER PO SCH (09:42)
[2019-09-14] MEDS: Citalopram 20 MG Tab PO SCH (09:43)
[2019-09-14] MEDS: Ertapenem 1 GM in Sodium Chloride 0.9% 50 ML IV SCH (11:34)
[2019-09-14] MEDS: atorvaSTATin 10 MG Tab PO SCH (20:44)
[2019-09-14] MEDS: Amitriptyline 25 MG Tab PO SCH (20:44)
[2019-09-15] MEDS: Heparin Sodium 5,000 Units/ML Vial SUBCUT SCH ×2 (03:10→11:30)
[2019-09-15 06:26] LABS: CARBON DIOXIDE,CO2 29.6 mmol/L (21.0-32.0)
[2019-09-15] MEDS: Insulin Aspart 100 Units/ML 3 ML Pen SUBCUT SCH ×2 (08:08→14:12)
[2019-09-15] MEDS: buPROPion 150 MG Tab.ER PO SCH (09:20)
[2019-09-15] MEDS: Vitamin B6-pyridOXINE 50 MG Tab PO SCH (09:20)
[2019-09-15] MEDS: Multivitamin Tab PO SCH (09:20)
[2019-09-15] MEDS: Omeprazole 20 MG Cap.CR PO SCH (09:20)
[2019-09-15] MEDS: Citalopram 20 MG Tab PO SCH (09:20)
--- NOTE | 2019-09-15 11:26 | PCM.DCSUM1 ---
Discharge Summary - Hospital Course HPI Initial Comments: Admission Date:09/12/19 Discharge Date: 09/15/19 Admission Diagnosis: 1. Sepsis secondary to UTI 2. DMII 3. Chronic conditions- anxiety/depression/hyperlipidemia Discharge Diagnosis: 1. Sepsis secondary to UTI- resolved 2. DMII 3. Chronic conditions- anxiety/depression/hyperlipidemia Procedures: None Consults: None Hospital Course: The patient is a 54 year old female who presented to the ER with fever, chills, and lightheadedness with associated urinary urgency and frequency. She had recently been admitted for ESBL Ecoli UTI and bacteremia, she had completed a 7 day course of IV antibiotics She was found to have leukocytosis, fever, tachycardia and signs of infection in her urine. In the ER she was given Vancomycin and Cefepime. She was admitted to the medical floor where she was treated with meropenem which was transitioned over to Ertapenem due to its once a day dosing. Urine culture returned growing ESBL Ecoli sensitive to ertapenem. Blood cultures were negative. With antibiotics and IVF, her sepsis resolved. She was placed on sliding scale and accuchecks for DMII. Last Ha1c was during her last admission and it was 7.3%. Continued home meds for chronic conditions. Disposition: Home Discharge Condition: vitals stable, tolerating oral diet, ambulating without difficulty, symptom improvement Discharge Instructions: regular diet as tolerated, activity as tolerated, take medications as prescribed. Symptoms to report to physician include fever/chills , chest pain, shortness of breath, abdominal pain, erythema, drainage/discharge , or not improving as expected. Return daily for antibiotics via PICC line. Discharge Medications: Acetaminophen 325 mg PO ASDIRECTED Amitriptyline HCl 100 mg PO BEDTIME Citalopram Hydrobromide [Celexa] 40 mg PO DAILY Diclofenac Sodium [Voltaren] 4 gm TP ASDIRECTED Multivitamin [Multivitamins] 1 each PO DAILY Omeprazole 20 mg PO DAILY Pyridoxine HCl (Vitamin B6) [Pyridoxine HCl] 100 mg PO DAILY atorvaSTATin [Lipitor] 10 mg PO BEDTIME buPROPion HCl [Bupropion Xl] 150 mg PO DAILY Acetaminophen [Tylenol] 650 mg PO Q6H PRN metFORMIN [Glucophage XR] 500 mg PO DAILY Ertapenem [INVanz] 1 gm IV Q24H 10 Days Follow-up: 1. PCP- Wendy Blandon 09/22/19 2. PICC line insertion in [place] 09/16/19 - Discharge Data Discharge Date: 09/15/19 Discharge Disposition: Home, Self-Care 01 Condition: Fair - Referral to Home Health Primary Care Physician: PCP None - Patient Instructions Diet: Diabetic Diet Activity: Apply Ice Driving: May Drive Today Showering/Bathing: May Shower Notify Provider of: Fever, Increased Pain, Swelling and Redness, Drainage, Nausea and/or Vomiting Other/Special Instructions: Additional symtoms include chest pain, shortness of breath, abdominal pain, burning with urination, increased urinary frequency/ urgency. Please follow up in [place] for PICC line insertion tomorrow 09/16/19. You will need to come in for IV antibiotics daily for the next 10 days. - Discharge Plan *PRESCRIPTION DRUG MONITORING PROGRAM REVIEWED*: No *COPY OF PRESCRIPTION DRUG MONITORING REPORT IN PATIENT EMMANUEL: No Home Medications: Home Meds Acetaminophen 325 mg PO ASDIRECTED 08/24/19 [History] Amitriptyline HCl 100 mg PO BEDTIME 08/24/19 [History] Citalopram Hydrobromide [Celexa] 40 mg PO DAILY 08/24/19 [History] Diclofenac Sodium [Voltaren] 4 gm TP ASDIRECTED 08/24/19 [History] Multivitamin [Multivitamins] 1 each PO DAILY 08/24/19 [History] Omeprazole 20 mg PO DAILY 08/24/19 [History] Pyridoxine HCl (Vitamin B6) [Pyridoxine HCl] 100 mg PO DAILY 08/24/19 [History] atorvaSTATin [Lipitor] 10 mg PO BEDTIME 08/24/19 [History] buPROPion HCl [Bupropion Xl] 150 mg PO DAILY 08/24/19 [History] Acetaminophen [Tylenol] 650 mg PO Q6H PRN tablet 08/28/19 [Rx] metFORMIN [Glucophage XR] 500 mg PO DAILY 14 Days #14 tab.er 08/28/19 [Rx] Ertapenem [INVanz] 1 gm IV Q24H 10 Days #10 vial 09/15/19 [Rx] Patient Handouts: Ertapenem injection, ESBL Infection Information, PICC Insertion, Care After Referrals: Wendy Blandon NP [Nurse Practitioner] - 09/22/19 11:00 am - Discharge Summary/Plan Comment DC Time >30 min.: No - Patient Data Vitals - Most Recent: Last Vital Signs Temp 97.7 F 09/15/19 08:00 Pulse 82 09/15/19 08:00 Resp 18 09/15/19 08:00 BP 111/72 09/15/19 08:00 Pulse Ox 93 L 09/15/19 08:00 Weight - Most Recent: 145.6 kg I&O - Last 24 hours: Intake & Output 09/14/19 09/15/19 09/15/19 22:59 06:59 14:59 Intake Total 2600 2000 Output Total 1450 2100 Balance 1150 -100 Lab Results - Last 24 hrs: Laboratory Results - last 24 hr 09/14/19 09/14/19 09/14/19 Range/Units 06:33 12:19 14:00 WBC (4.0-11.0) K/uL RBC (4.30-5.90) M/uL Hgb (12.0-16.0) g/dL Hct (36.0-46.0) % MCV (80.0-98.0) fL MCH (27.0-32.0) pg MCHC (31.0-37.0) g/dL RDW Std Deviation (28.0-62.0) fl RDW Coeff of Aristeo (11.0-15.0) % Plt Count (150-400) K/uL MPV (7.40-12.00) fL Neut % (Auto) (48.0-80.0) % Lymph % (Auto) (16.0-40.0) % Morrill % (Auto) (0.0-15.0) % Eos % (Auto) (0.0-7.0) % Baso % (Auto) (0.0-1.5) % Neut # (Auto) (1.4-5.7) K/uL Lymph # (Auto) (0.6-2.4) K/uL Morrill # (Auto) (0.0-0.8) K/uL Eos # (Auto) (0.0-0.7) K/uL Baso # (Auto) (0.0-0.1) K/uL Nucleated RBC % /100WBC Nucleated RBCs # K/uL Sodium (136-145) mmol/L Potassium (3.5-5.1) mmol/L Chloride (98-107) mmol/L Carbon Dioxide (21.0-32.0) mmol/L BUN (7.0-18.0) mg/dL Creatinine (0.6-1.0) mg/dL Est Cr Clr Drug Dosing mL/min Estimated GFR (MDRD) ml/min Glucose (74-106) mg/dL POC Glucose 94 85 (60-110) mg/dL Calcium (8.5-10.1) mg/dL Urine Color YELLOW Urine Appearance HAZY Urine pH 7.0 (5.0-8.0) Ur Specific [place] 1.010 (1.001-1.035) Urine Protein NEGATIVE (NEGATIVE) mg/dL Urine Glucose (UA) NEGATIVE (NEGATIVE) mg/dL Urine Ketones NEGATIVE (NEGATIVE) mg/dL Urine Occult Blood NEGATIVE (NEGATIVE) Urine Nitrite NEGATIVE (NEGATIVE) Urine Bilirubin NEGATIVE (NEGATIVE) Urine Urobilinogen 0.2 (<2.0) EU/dL Ur Leukocyte Esterase MODERATE H (NEGATIVE) Urine RBC 0-2 (0-2/HPF) Urine WBC 0-4 (0-5/HPF) Ur Epithelial Cells FEW (NONE-FEW) Urine Bacteria FEW (NEGATIVE) 09/14/19 09/15/19 09/15/19 Range/Units 16:56 05:50 05:50 WBC 6.25 (4.0-11.0) K/uL RBC 4.00 L (4.30-5.90) M/uL Hgb 11.5 L (12.0-16.0) g/dL Hct 36.1 (36.0-46.0) % MCV 90.3 (80.0-98.0) fL MCH 28.8 (27.0-32.0) pg MCHC 31.9 (31.0-37.0) g/dL RDW Std Deviation 49.4 (28.0-62.0) fl RDW Coeff of Aristeo 15 (11.0-15.0) % Plt Count 278 (150-400) K/uL MPV 9.50 (7.40-12.00) fL Neut % (Auto) 39.9 L (48.0-80.0) % Lymph % (Auto) 46.1 H (16.0-40.0) % Morrill % (Auto) 8.0 (0.0-15.0) % Eos % (Auto) 5.4 (0.0-7.0) % Baso % (Auto) 0.6 (0.0-1.5) % Neut # (Auto) 2.5 (1.4-5.7) K/uL Lymph # (Auto) 2.9 H (0.6-2.4) K/uL Morrill # (Auto) 0.5 (0.0-0.8) K/uL Eos # (Auto) 0.3 (0.0-0.7) K/uL Baso # (Auto) 0.0 (0.0-0.1) K/uL Nucleated RBC % 0.0 /100WBC Nucleated RBCs # 0 K/uL Sodium 143 (136-145) mmol/L Potassium 4.0 (3.5-5.1) mmol/L Chloride 107 (98-107) mmol/L Carbon Dioxide 29.6 (21.0-32.0) mmol/L BUN 10 (7.0-18.0) mg/dL Creatinine 1.2 H (0.6-1.0) mg/dL Est Cr Clr Drug Dosing 38.05 mL/min Estimated GFR (MDRD) 46.6 ml/min Glucose 95 (74-106) mg/dL POC Glucose 77 (60-110) mg/dL Calcium 8.2 L (8.5-10.1) mg/dL Urine Color Urine Appearance Urine pH (5.0-8.0) Ur Specific [place] (1.001-1.035) Urine Protein (NEGATIVE) mg/dL Urine Glucose (UA) (NEGATIVE) mg/dL Urine Ketones (NEGATIVE) mg/dL Urine Occult Blood (NEGATIVE) Urine Nitrite (NEGATIVE) Urine Bilirubin (NEGATIVE) Urine Urobilinogen (<2.0) EU/dL Ur Leukocyte Esterase (NEGATIVE) Urine RBC (0-2/HPF) Urine WBC (0-5/HPF) Ur Epithelial Cells (NONE-FEW) Urine Bacteria (NEGATIVE) 09/15/19 Range/Units 06:14 WBC (4.0-11.0) K/uL RBC (4.30-5.90) M/uL Hgb (12.0-16.0) g/dL Hct (36.0-46.0) % MCV (80.0-98.0) fL MCH (27.0-32.0) pg MCHC (31.0-37.0) g/dL RDW Std Deviation (28.0-62.0) fl RDW Coeff of Aristeo (11.0-15.0) % Plt Count (150-400) K/uL MPV (7.40-12.00) fL Neut % (Auto) (48.0-80.0) % Lymph % (Auto) (16.0-40.0) % Morrill % (Auto) (0.0-15.0) % Eos % (Auto) (0.0-7.0) % Baso % (Auto) (0.0-1.5) % Neut # (Auto) (1.4-5.7) K/uL Lymph # (Auto) (0.6-2.4) K/uL Morrill # (Auto) (0.0-0.8) K/uL Eos # (Auto) (0.0-0.7) K/uL Baso # (Auto) (0.0-0.1) K/uL Nucleated RBC % /100WBC Nucleated RBCs # K/uL Sodium (136-145) mmol/L Potassium (3.5-5.1) mmol/L Chloride (98-107) mmol/L Carbon Dioxide (21.0-32.0) mmol/L BUN (7.0-18.0) mg/dL Creatinine (0.6-1.0) mg/dL Est Cr Clr Drug Dosing mL/min Estimated GFR (MDRD) ml/min Glucose (74-106) mg/dL POC Glucose 85 (60-110) mg/dL Calcium (8.5-10.1) mg/dL Urine Color Urine Appearance Urine pH (5.0-8.0) Ur Specific [place] (1.001-1.035) Urine Protein (NEGATIVE) mg/dL Urine Glucose (UA) (NEGATIVE) mg/dL Urine Ketones (NEGATIVE) mg/dL Urine Occult Blood (NEGATIVE) Urine Nitrite (NEGATIVE) Urine Bilirubin (NEGATIVE) Urine Urobilinogen (<2.0) EU/dL Ur Leukocyte Esterase (NEGATIVE) Urine RBC (0-2/HPF) Urine WBC (0-5/HPF) Ur Epithelial Cells (NONE-FEW) Urine Bacteria (NEGATIVE) OLEKSANDR Results - Last 24 hrs: Microbiology 09/11/19 22:15 Aerobic Blood Culture - Preliminary Blood - Venous - Lab Draw NO GROWTH AFTER 3 DAYS Anaerobic Blood Culture - Preliminary NO GROWTH AFTER 3 DAYS 09/11/19 22:08 Aerobic Blood Culture - Preliminary Blood - Venous NO GROWTH AFTER 3 DAYS Anaerobic Blood Culture - Preliminary NO GROWTH AFTER 3 DAYS Med Orders - Current: Current Medications Acetaminophen (Tylenol) 650 mg PO Q4H PRN PRN Reason: Pain (Mild 1-3)/fever Last Admin: 09/13/19 14:13 Dose: 650 mg Amitriptyline HCl (Elavil) 100 mg PO BEDTIME [facility] Last Admin: 09/14/19 20:44 Dose: 100 mg Atorvastatin Calcium (Lipitor) 10 mg PO BEDTIME [facility] Last Admin: 09/14/19 20:44 Dose: 10 mg Bupropion HCl (Wellbutrin Xl) 150 mg PO DAILY [facility] Last Admin: 09/15/19 09:20 Dose: 150 mg Citalopram Hydrobromide (Celexa) 40 mg PO DAILY [facility] Last Admin: 09/15/19 09:20 Dose: 40 mg Heparin Sodium (Porcine) (Heparin Sodium) 5,000 units SUBCUT Q8H [facility] Last Admin: 09/15/19 03:10 Dose: 5,000 units Ertapenem 1 gm/ Sodium (Chloride) 50 mls @ 100 mls/hr IV Q24H [facility] Last Admin: 09/14/19 11:34 Dose: 100 mls/hr Insulin Aspart (Novolog) 0 unit SUBCUT TIDAC [facility]; Protocol Last Admin: 09/15/19 08:08 Dose: Not Given Multivitamins/Minerals/Vitamin C (Tab-A-Nhan) 1 tab PO DAILY [facility] Last Admin: 09/15/19 09:20 Dose: 1 tab Omeprazole (Omeprazole) 20 mg PO DAILY [facility] Last Admin: 09/15/19 09:20 Dose: 20 mg Ondansetron HCl (Zofran) 4 mg IVPUSH Q4H PRN PRN Reason: Nausea Pyridoxine HCl (Vitamin B6-Pyridoxine) 100 mg PO DAILY [facility] Last Admin: 09/15/19 09:20 Dose: 100 mg Sodium Chloride (Saline Flush) 10 ml FLUSH ASDIRECTED PRN PRN Reason: Keep Vein Open Last Admin: 09/11/19 22:14 Dose: 10 ml Sodium Chloride (Saline Flush) 2.5 ml FLUSH ASDIRECTED PRN PRN Reason: Keep Vein Open Last Admin: 09/11/19 22:13 Dose: 2.5 ml Sodium Chloride (Saline Flush) 10 ml FLUSH ASDIRECTED PRN PRN Reason: Keep Vein Open Last Admin: 09/11/19 22:14 Dose: 10 ml Sodium Chloride (Saline Flush) 2.5 ml FLUSH ASDIRECTED PRN PRN Reason: Keep Vein Open Last Admin: 09/11/19 22:14 Dose: 2.5 ml Discontinued Medications Acetaminophen (Tylenol Extra Strength) 1,000 mg PO ONETIME ONE Stop: 09/11/19 23:34 Last Admin: 09/11/19 23:44 Dose: 1,000 mg Albuterol/Ipratropium (Duoneb 3.0-0.5 Mg/3 Ml) 3 ml NEB ONETIME ONE Stop: 09/11/19 21:43 Last Admin: 09/11/19 21:48 Dose: 3 ml Heparin Sodium (Porcine) (Heparin Sodium) 5,000 units SUBCUT Q8H [facility] Last Admin: 09/12/19 03:06 Dose: Not Given Sodium Chloride (Normal Saline) 1,000 mls @ 999 mls/hr IV .Bolus ONE Stop: 09/11/19 22:58 Last Admin: 09/11/19 22:12 Dose: 999 mls/hr Cefepime HCl 1 gm/ Premix 50 mls @ 100 mls/hr IV ONETIME ONE Stop: 09/11/19 23:52 Last Admin: 09/12/19 01:25 Dose: Not Given Vancomycin HCl 1 gm/ Sodium (Chloride) 250 mls @ 166 mls/hr IV ONETIME ONE Stop: 09/12/19 00:53 Last Admin: 09/11/19 23:55 Dose: 166 mls/hr Sodium Chloride (Normal Saline) 1,000 mls @ 999 mls/hr IV ASDIRECTED [facility] Last Admin: 09/11/19 23:37 Dose: 999 mls/hr Meropenem 2 gm/ Sodium (Chloride) 100 mls @ 100 mls/hr IV Q8H [facility] Last Admin: 09/12/19 03:07 Dose: Not Given Sodium Chloride (Normal Saline) 1,000 mls @ 125 mls/hr IV ASDIRECTED [facility] Last Admin: 09/13/19 03:50 Dose: 125 mls/hr Meropenem 2 gm/ Sodium (Chloride) 100 mls @ 100 mls/hr IV Q8H [facility] Last Admin: 09/12/19 11:22 Dose: Not Given Meropenem 2 gm/ Sodium (Chloride) 100 mls @ 100 mls/hr IV Q12H [facility]
[2019-09-15] MEDS: Ertapenem 1 GM in Sodium Chloride 0.9% 50 ML IV SCH (11:30)
[2019-09-15 11:51] VITALS: BP 122/65; PULSE 79
== END 2019-09-15 14:05 | disposition home or self-care (01) | DRG 872 ==
LOC: MW.ED 20:32 → MW.MS 09-12 00:55
PROVIDERS: ADMIT Internal Medicine; ATTEND Internal Medicine
DX: A41.51 Sepsis due to Escherichia coli [E. coli] (principal); N39.0 Urinary tract infection, site not specified; N17.9 Acute kidney failure, unspecified; Z68.44 Body mass index [BMI] 60.0-69.9, adult; E11.9 Type 2 diabetes mellitus without complications; F41.9 Anxiety disorder, unspecified; F32.9 Major depressive disorder, single episode, unspecified; E78.5 Hyperlipidemia, unspecified; E66.01 Morbid (severe) obesity due to excess calories; Z88.2 Allergy status to sulfonamides; Z88.1 Allergy status to other antibiotic agents; Z79.899 Other long term (current) drug therapy; Z90.49 Acquired absence of other specified parts of digestive tract
CPT/HCPCS: 36415; 71045; 71045-26; 80048; 80053; 81001; 82962; 83605; 84484; 85025; 85610; 87040; 87086; 87088; 87186; 87804; 93005; 94640; A9270-GY; J1335; J1644; J2185; J3370; J7030; J7050; J7620-GY

== ENCOUNTER 2020-11-24 16:53 | Emergency (ER) | payer MEDICAID ==
[2020-11-24] MEDS ORDERED: Morphine 4 MG/ML Syringe IM ONE (17:08)
[2020-11-24] MEDS ORDERED: Ketorolac 30 MG/ML SDV IM ONE (17:09)
--- NOTE | 2020-11-24 17:26 | EDM.PDOC ---
ED HPI GENERAL MEDICAL PROBLEM - General Chief Complaint: Back Pain or Injury Stated Complaint: HURT HIPS AND BACK Time Seen by Provider: 11/24/20 17:01 Source of Information: Reports: Patient History Limitations: Reports: No Limitations - History of Present Illness INITIAL COMMENTS - FREE TEXT/NARRATIVE: 55-year-old female past medical history obesity, depression presents after a fall. Patient was getting out of her vehicle when she fell. She does endorse hitting her head but is not on blood thinners and denies LOC. She notes a lot of pain in her lower back and bilateral hips. She denies nausea or vomiting. She denies neck pain. She denies any other pain. Back Pain Score (Numeric/FACES): 4 - Related Data Allergies Allergy/AdvReac Type Severity Reaction Status Date / Time sulfamethoxazole Allergy Hives Verified 11/24/20 16:55 [From Bactrim] trimethoprim [From Bactrim] Allergy Hives Verified 11/24/20 16:55 Home Meds: Home Meds Acetaminophen 325 mg PO ASDIRECTED 08/24/19 [History] Amitriptyline HCl 100 mg PO BEDTIME 08/24/19 [History] Citalopram Hydrobromide [Celexa] 40 mg PO DAILY 08/24/19 [History] Diclofenac Sodium [Voltaren] 4 gm TP ASDIRECTED 08/24/19 [History] Multivitamin [Multivitamins] 1 each PO DAILY 08/24/19 [History] Omeprazole 20 mg PO DAILY 08/24/19 [History] Pyridoxine HCl (Vitamin B6) [Pyridoxine HCl] 100 mg PO DAILY 08/24/19 [History] atorvaSTATin [Lipitor] 10 mg PO BEDTIME 08/24/19 [History] buPROPion HCL [Bupropion Xl] 150 mg PO DAILY 08/24/19 [History] Acetaminophen [Tylenol] 650 mg PO Q6H PRN tablet 08/28/19 [Rx] metFORMIN [Glucophage XR] 500 mg PO DAILY 14 Days #14 tab.er 08/28/19 [Rx] Ertapenem [INVanz] 1 gm IV Q24H 10 Days #10 vial 09/15/19 [Rx] oxyCODONE HCl/Acetaminophen [Percocet 10-325 mg Tablet] 1 each PO Q4H PRN #18 tablet 11/24/20 [Rx] Past Medical History HEENT History: Reports: None Cardiovascular History: Reports: Other (See Below) Other Cardiovascular History: pt states last week she was told she had a heart attack Respiratory History: Reports: None Genitourinary History: Reports: None PERMIT REVIEW ASSISTANT History: Reports: None Musculoskeletal History: Reports: None Neurological History: Reports: None Psychiatric History: Reports: Anxiety, Depression, Mood Swings, PTSD Endocrine/Metabolic History: Reports: None Hematologic History: Reports: None Immunologic History: Reports: None Oncologic (Cancer) History: Reports: None Dermatologic History: Reports: None - Infectious Disease History Infectious Disease History: Reports: Chicken Pox - Past Surgical History GI Surgical History: Reports: Bariatric Procedure, Cholecystectomy Other GI Surgeries/Procedures: gastric bypass Female Surgical History: Reports: D&C, Tubal Ligation Social & Family History - Family History Family Medical History: No Pertinent Family History - Tobacco Use Tobacco Use Status *Q: Never Tobacco User - Caffeine Use Caffeine Use: Reports: Other - Recreational Drug Use Recreational Drug Use: No ED ROS GENERAL - Review of Systems Review Of Systems: Comprehensive ROS is negative, except as noted in HPI. ED EXAM, GENERAL - Physical Exam Exam: See Below Exam Limited By: No Limitations General Appearance: Alert, WD/WN, No Apparent Distress Eye Exam: Bilateral Eye: EOMI, PERRL Ears: Normal External Exam Nose: Normal Inspection Throat/Mouth: Normal Voice, No Airway Compromise Head: Atraumatic, Normocephalic Neck: Normal Inspection, Non-Tender. No: Tender Lateral, Tender Midline Respiratory/Chest: No Respiratory Distress, Lungs Clear, Normal Breath Sounds, No Accessory Muscle Use Cardiovascular: Normal Peripheral Pulses, Regular Rate, Rhythm GI/Abdominal: Soft, Non-Tender Back Exam: Normal Inspection, Other (TTP of midline lumbar spine; b/l pelvic TTP without instability, extremities without deformity or TTP) Neurological: Alert Psychiatric: Normal Affect, Normal Mood Skin Exam: Warm, Dry, Intact, Normal Color Course - Vital Signs Last Recorded V/S: Last Vital Signs Temp 97.3 F 11/24/20 16:55 Pulse 84 11/24/20 16:55 Resp 17 11/24/20 16:55 BP 111/53 L 11/24/20 16:55 Pulse Ox 93 L 11/24/20 16:55 - Orders/Labs/Meds Meds: Medications Discontinued Medications Generic Name Dose Route Start Last Admin Trade Name Freq PRN Reason Stop Dose Admin Ketorolac Tromethamine 30 mg 11/24/20 17:09 11/24/20 18:17 Ketorolac 30 Mg/Ml Sdv IM 11/24/20 17:10 30 mg ONETIME ONE Administration Morphine Sulfate 4 mg 11/24/20 17:08 11/24/20 18:17 Morphine 4 Mg/Ml Syringe IM 11/24/20 17:09 4 mg ONETIME ONE Administration - Re-Assessments/Exams Free Text/Narrative Re-Assessment/Exam: 11/24/20 17:[address] scan of pelvis and lumbar spine. Will give morphine and Toradol for analgesia. Departure - Departure Time of Disposition: 18:51 Disposition: Home, Self-Care 01 Condition: Good Clinical Impression: Lumbar vertebral fracture Qualifiers: Encounter type: initial encounter Lumbar vertebra fracture level: L3 Fracture type: closed Fracture morphology: other fracture Qualified Code(s): S32.038A - Other fracture of third lumbar vertebra, initial encounter for closed fracture - Discharge Information Prescriptions: oxyCODONE HCl/Acetaminophen [Percocet 10-325 mg Tablet] 1 each PO Q4H PRN #18 tablet PRN Reason: Pain Instructions: Lumbar Spine Fracture Referrals: PCP,None [Primary Care Provider] - Forms: ED Department Discharge Additional Instructions: Your CT is remarkable for a nondisplaced fracture at L3 and L5 in your lumbar spine. You will need to follow-up with a neurosurgeon for definitive care. These are stable fractures and typically managed with physical therapy. I have sent pain medication to her pharmacy. [address] [address] The following information is given to patients seen in the emergency department who are being discharged to home. This information is to outline your options for follow-up care. We provide all patients seen in our emergency department with a follow-up referral. The need for follow-up, as well as the timing and circumstances, are variable depending upon the specifics of your emergency department visit. If you don't have a primary care physician on staff, we will provide you with a referral. We always advise you to contact your personal physician following an emergency department visit to inform them of the circumstance of the visit and for follow-up with them and/or the need for any referrals to a consulting specialist. The emergency department will also refer you to a specialist when appropriate. This referral assures that you have the opportunity for follow-up care with a specialist. All of these measure are taken in an effort to provide you with optimal care, which includes your follow-up. Under all circumstances we always encourage you to contact your private physician who remains a resource for coordinating your care. When calling for follow-up care, please make the office aware that this follow-up is from your recent emergency room visit. If for any reason you are refused follow-up, please contact the [facility] Emergency Department at and asked to speak to the emergency department charge nurse. Please follow up with your primary care physician. If you do not have a primary care physician, see below: [facility] [address] [place] [id number] [facility] [address] [place] [address] [id number] [facility] [address] [place] [id number] Sepsis Event Note (ED) - Evaluation Sepsis Screening Result: No Definite Risk - Focused Exam Vital Signs: Vital Signs Temp Pulse Resp BP Pulse Ox 11/24/20 16:55 97.3 F 84 17 111/53 L 93 L
--- NOTE | 2020-11-24 18:45 | CT ---
INDICATION: Fall. TECHNIQUE: Pelvic CT without intravenous contrast. Coronal and sagittal reformats. COMPARISON: None available. FINDINGS: No dislocation, acute pelvic/hip fracture, or suspicious osseous lesion. Imaged inferior lumbar spine notable for a nondisplaced fracture of the L5 superior endplate. Severe right hip joint space narrowing with [id number] apposition superiorly, circumferential marginal osteophytosis, prominent subchondral cysts in the superior femoral head, as well as articular flattening/remodeling. Left hip demonstrates similar but less pronounced findings. Degenerative changes of the pubic symphysis and bilateral SI joints. No pelvic hernia or lymphadenopathy identified. IMPRESSION: 1. Pelvis without dislocation or acute fracture. 2. Acute L5 superior endplate fracture. Please see separate same-day lumbar spine CT report for further characterization. 3. Severe right hip arthrosis with [id number] apposition and articular flattening/remodeling. 4. Moderate-severe left hip arthrosis. Please note that all CT scans at this facility use dose modulation, iterative reconstruction, and/or weight-based dosing when appropriate to reduce radiation dose to as low as reasonably achievable. Dictated by Valdez Love MD @ Nov 25 2020 7:13AM Signed by Dr. Valdez Love @ Nov 25 2020 7:25AM
--- NOTE | 2020-11-24 18:49 | CT ---
INDICATION: fall CT LUMBAR SPINE WITHOUT CONTRAST TECHNIQUE: Multidetector axial CT imaging was performed through the lumbar spine, without contrast. Sagittal and coronal reconstructions were generated. FINDINGS: There is an acute-appearing nondisplaced fracture of the superior endplate of L3, as seen on image 67 of series 201. A probable acute nondisplaced fracture of the superior endplate of L5 is suggested on image 97 of series 201 and image 47 of series 203. No other fractures are noted. Disc spaces appear preserved. Scattered mild degenerative changes are seen in the mid and lower lumbar facet joints. Osseous alignment is within normal limits and no subluxation is seen. Paravertebral soft tissues are unremarkable. Bilateral hip DJD changes are present. There are gastric postoperative changes and prior cholecystectomy. IMPRESSION: 1. Acute nondisplaced fracture of the superior endplate of L3 and probable acute nondisplaced fracture of the superior endplate of L5. 2. Mild lumbar spondylosis. DENNY ARAIZA MD [employer] Dictated by Jimmy Araiza MD @ 11/24/2020 6:47:57 PM Dictated by: Jimmy Araiza MD @ 11/24/2020 18:48:21 (Electronically Signed)
[2020-11-24 19:04] VITALS: BP 124/69; PULSE 83
== END 2020-11-24 19:15 | disposition home or self-care (01) ==
LOC: MW.ED 16:53
DX: S22.038A Other fracture of third thoracic vertebra, initial encounter for closed fracture (principal); E66.9 Obesity, unspecified; Z88.2 Allergy status to sulfonamides; Z88.1 Allergy status to other antibiotic agents; W19.XXXA Unspecified fall, initial encounter
CPT/HCPCS: 72131; 72192; 96372; 99284; J1885; J2270; 99283

== ENCOUNTER 2021-08-29 19:09 | Observation (INO) | payer BC, MEDICAID ==
[2021-08-29] MEDS ORDERED: Iopamidol 755 MG/ML 500 ML Multipack Bottle IVPUSH ONE (19:17)
[2021-08-29 19:49] LABS: BLOOD UREA NITROGEN,BUN 15 mg/dL (7.0-18.0); CARBON DIOXIDE,CO2 24.6 mmol/L (21.0-32.0); CHLORIDE,CL 102 mmol/L (98-107); GLUCOSE RANDOM 149 mg/dL (74-106); POTASSIUM,K 4.1 mmol/L (3.5-5.1); SODIUM,NA 139 mmol/L (136-145)
[2021-08-29] MEDS ORDERED: Sodium Chloride 0.9% 1,000 ML IV ONE (20:26)
[2021-08-29 21:32] LABS: CORONAVIRUS COVID-19 NAA NEGATIVE (NEGATIVE); INFLUENZA A NAA NEGATIVE (NEGATIVE); INFLUENZA B NAA NEGATIVE (NEGATIVE)
[2021-08-29] MEDS ORDERED: Piperacillin/Tazobactam 4.5 GM in Sodium Chloride 0.9% 100 ML IV ONE (21:49)
[2021-08-29] MEDS ORDERED: Lactated Ringers 1,000 ML IV ONE (21:50)
[2021-08-29] MEDS ORDERED: Ondansetron 4 MG/2 ML SDV IVPUSH PRN (22:40)
[2021-08-29] MEDS ORDERED: Albuterol/Ipratropium 3.0-0.5 MG/3 ML Neb Soln NEB PRN (22:40)
[2021-08-29] MEDS: Enoxaparin 40 MG/0.4 ML Syringe SUBCUT SCH (23:41)
[2021-08-29] MEDS: Lactated Ringers 1,000 ML IV SCH (23:41)
[2021-08-30] MEDS ORDERED: Piperacillin/Tazobactam 3.375 GM in Sodium Chloride 0.9% 50 ML IV SCH (06:00)
[2021-08-30] MEDS: Lactated Ringers 1,000 ML IV SCH ×2 (07:41→20:32)
[2021-08-30] MEDS ORDERED: Lactated Ringers 1,000 ML IV ONE ×2 (08:44→18:15)
[2021-08-30] MEDS: Pantoprazole 40 MG/10 ML Syringe IVPUSH SCH (09:39)
[2021-08-30] MEDS: Piperacillin/Tazobactam 3.375 GM in Sodium Chloride 0.9% 50 ML IV SCH ×2 (11:47→17:23)
[2021-08-30 11:52] LABS: CARBON DIOXIDE,CO2 26.4 mmol/L (21.0-32.0); POTASSIUM,K 3.5 mmol/L (3.5-5.1)
[2021-08-30] MEDS: DULoxetine 60 MG Cap PO SCH (20:18)
[2021-08-30] MEDS: atorvaSTATin 10 MG Tab PO SCH (20:19)
[2021-08-30] MEDS: Amitriptyline 25 MG Tab PO SCH (20:19)
[2021-08-30] MEDS ORDERED: Labetalol 100 MG/20 ML MDV IVPUSH PRN (22:25)
[2021-08-30] MEDS: Enoxaparin 40 MG/0.4 ML Syringe SUBCUT SCH (22:32)
[2021-08-30] MEDS ORDERED: LORazepam 2 MG/ML SDV IVPUSH ONE (22:40)
[2021-08-30] MEDS: Nystatin Topical Powder 15 GM Bottle TOP SCH (22:50)
[2021-08-31] MEDS: Piperacillin/Tazobactam 3.375 GM in Sodium Chloride 0.9% 50 ML IV SCH ×5 (00:15→23:39)
[2021-08-31 06:09] LABS: CARBON DIOXIDE,CO2 28.3 mmol/L (21.0-32.0); POTASSIUM,K 3.8 mmol/L (3.5-5.1)
[2021-08-31] MEDS: Lactated Ringers 1,000 ML IV SCH (06:30)
[2021-08-31] MEDS: Nystatin Topical Powder 15 GM Bottle TOP SCH ×3 (06:36→22:18)
[2021-08-31] MEDS ORDERED: Omeprazole 20 MG Cap.CR PO SCH (07:30)
[2021-08-31] MEDS: Pantoprazole 40 MG/10 ML Syringe IVPUSH SCH (08:45)
[2021-08-31] MEDS: DULoxetine 60 MG Cap PO SCH ×2 (08:45→20:24)
[2021-08-31] MEDS ORDERED: LORazepam 2 MG/ML SDV IVPUSH PRN ×2 (12:19→22:23)
[2021-08-31] MEDS ORDERED: Gadobenate Dimeglumine 529 MG/ML 20 ML SDV IVPUSH STA (12:36)
[2021-08-31] MEDS: Metoprolol Succinate 25 MG Tab.ER PO SCH (20:18)
[2021-08-31] MEDS: QUEtiapine 25 MG Tab PO SCH (20:24)
[2021-08-31] MEDS: atorvaSTATin 10 MG Tab PO SCH (20:25)
[2021-08-31] MEDS: Amitriptyline 25 MG Tab PO SCH (20:25)
[2021-08-31] MEDS: Enoxaparin 40 MG/0.4 ML Syringe SUBCUT SCH (22:18)
[2021-09-01] MEDS: Nystatin Topical Powder 15 GM Bottle TOP SCH ×3 (05:59→22:08)
[2021-09-01] MEDS: Piperacillin/Tazobactam 3.375 GM in Sodium Chloride 0.9% 50 ML IV SCH (06:00)
[2021-09-01 06:36] LABS: CARBON DIOXIDE,CO2 27.7 mmol/L (21.0-32.0); POTASSIUM,K 3.5 mmol/L (3.5-5.1)
[2021-09-01] MEDS: Metoprolol Succinate 25 MG Tab.ER PO SCH (09:03)
[2021-09-01] MEDS: DULoxetine 60 MG Cap PO SCH ×2 (09:03→20:27)
[2021-09-01] MEDS: Pantoprazole 40 MG in Sodium Chloride 0.9% 10 ML IV SCH (09:03)
[2021-09-01] MEDS: Amitriptyline 25 MG Tab PO SCH (20:26)
[2021-09-01] MEDS: atorvaSTATin 10 MG Tab PO SCH (20:27)
[2021-09-01] MEDS: QUEtiapine 25 MG Tab PO SCH (20:27)
[2021-09-01] MEDS: Enoxaparin 40 MG/0.4 ML Syringe SUBCUT SCH (22:06)
[2021-09-02] MEDS ORDERED: Haloperidol Lactate 5 MG/ML SDV IM ONE (00:58)
[2021-09-02] MEDS: Nystatin Topical Powder 15 GM Bottle TOP SCH ×3 (05:52→21:00)
[2021-09-02 07:15] LABS: CARBON DIOXIDE,CO2 27.1 mmol/L (21.0-32.0); POTASSIUM,K 3.4 mmol/L (3.5-5.1)
[2021-09-02] MEDS: DULoxetine 60 MG Cap PO SCH ×2 (08:52→20:51)
[2021-09-02] MEDS: Metoprolol Succinate 25 MG Tab.ER PO SCH (08:52)
[2021-09-02] MEDS: Pantoprazole 40 MG in Sodium Chloride 0.9% 10 ML IV SCH (08:52)
[2021-09-02] MEDS ORDERED: Potassium Chloride 20 MEQ Tab.ER PO ONE ×2 (16:06→20:00)
[2021-09-02] MEDS: Amitriptyline 25 MG Tab PO SCH (20:51)
[2021-09-02] MEDS: atorvaSTATin 10 MG Tab PO SCH (20:52)
[2021-09-02] MEDS ORDERED: QUEtiapine 25 MG Tab PO SCH (21:00)
[2021-09-02] MEDS: Enoxaparin 40 MG/0.4 ML Syringe SUBCUT SCH (21:57)
[2021-09-03] MEDS: Nystatin Topical Powder 15 GM Bottle TOP SCH (05:30)
[2021-09-03] MEDS: Metoprolol Succinate 25 MG Tab.ER PO SCH (08:29)
[2021-09-03] MEDS: DULoxetine 60 MG Cap PO SCH (08:29)
[2021-09-03] MEDS: Pantoprazole 40 MG in Sodium Chloride 0.9% 10 ML IV SCH (08:30)
[2021-09-03 08:59] LABS: CARBON DIOXIDE,CO2 26.7 mmol/L (21.0-32.0); POTASSIUM,K 3.7 mmol/L (3.5-5.1)
[2021-09-03 11:56] VITALS: BP 120/86; PULSE 86
== END 2021-09-03 13:30 | disposition home or self-care (01) ==
LOC: MW.ED 19:09 → MW.MS 21:51
PROVIDERS: ADMIT Student in an Organized Health Care Education/Training Program; ATTEND Student in an Organized Health Care Education/Training Program
DX: R41.82 Altered mental status, unspecified (principal); F41.9 Anxiety disorder, unspecified; F32.A Depression, unspecified; N17.9 Acute kidney failure, unspecified; E11.9 Type 2 diabetes mellitus without complications; I10 Essential (primary) hypertension; E78.5 Hyperlipidemia, unspecified; R44.3 Hallucinations, unspecified; Z20.822 Contact with and (suspected) exposure to COVID-19; Z88.2 Allergy status to sulfonamides; Z88.8 Allergy status to other drugs, medicaments and biological substances; Z79.899 Other long term (current) drug therapy; Z90.49 Acquired absence of other specified parts of digestive tract; Z98.890 Other specified postprocedural states
CPT/HCPCS: 0240U; 36415; 70450; 70496; 70498; 70553; 71045; 80053; 80305; 80307; 81001; 82947; 83605; 83735; 84100; 84439; 84443; 84484; 85025; 85610; 85730; 86140; 87040; 93005; 96365; 97110; 97161; 99285; A9270; A9577; C9113; J1630; J1650; J2060; J2543; J7030; J7120; Q9967; 96366; 96372; 96375; 96376; G0378

== ENCOUNTER 2021-12-26 05:13 | Emergency (ER) | payer BC, MEDICAID ==
[2021-12-26 06:13] LABS: BLOOD UREA NITROGEN,BUN 16 mg/dL (7.0-18.0); CARBON DIOXIDE,CO2 22.8 mmol/L (21.0-32.0); CHLORIDE,CL 100 mmol/L (98-107); GLUCOSE RANDOM 201 mg/dL (74-106); POTASSIUM,K 3.4 mmol/L (3.5-5.1); SODIUM,NA 135 mmol/L (136-145)
[2021-12-26 06:57] VITALS: BP 119/78; PULSE 89
== END 2021-12-26 06:56 | disposition home or self-care (01) ==
LOC: MW.ED 05:13
DX: R47.81 Slurred speech (principal); R53.83 Other fatigue; Z88.2 Allergy status to sulfonamides; Z90.49 Acquired absence of other specified parts of digestive tract; Z79.899 Other long term (current) drug therapy; W19.XXXA Unspecified fall, initial encounter
CPT/HCPCS: 36415; 70450; 70450-26; 80053; 80307; 82947; 85025; 93005; 99285-25

== ENCOUNTER 2022-11-21 22:16 | Emergency (ER) | payer MEDICAID ==
[2022-11-21 23:17] LABS: POTASSIUM,K 3.4 mmol/L (3.5-5.1)
[2022-11-21] MEDS ORDERED: Aspirin 81 MG Tab.Chew PO ONE (23:29)
[2022-11-21] MEDS ORDERED: Alum Hydro/Mag Hydro/Simeth XS 15 ML, Lidocaine 2% 5 ML PO ONE ×2 (23:29)
[2022-11-22 01:38] VITALS: BP 115/78; PULSE 88
== END 2022-11-22 01:30 | disposition home or self-care (01) ==
LOC: MW.ED 22:16
DX: R06.02 Shortness of breath (principal); J44.9 Chronic obstructive pulmonary disease, unspecified; E78.5 Hyperlipidemia, unspecified; I10 Essential (primary) hypertension; E11.9 Type 2 diabetes mellitus without complications; Z88.1 Allergy status to other antibiotic agents; Z79.899 Other long term (current) drug therapy; Z79.84 Long term (current) use of oral hypoglycemic drugs
CPT/HCPCS: 36415; 71045; 80053; 83690; 83735; 84484; 84703; 85025; 85379; 93005; 99285; A9270

== ENCOUNTER 2024-02-09 02:23 | Emergency (ER) | payer MEDICAID ==
[2024-02-09 02:36] LABS: BASOPHILS ABSOLUTE AUTO 0.05 K/uL (0.00-0.20); BASOPHILS PERCENT AUTO 0.5 % (0.0-1.0); EOSINOPHILS ABSOLUTE AUTO 0.16 K/uL (0.00-0.45); EOSINOPHILS PERCENT AUTO 1.5 % (0.0-6.0); HEMATOCRIT 39.8 % (37.0-47.0); HEMOGLOBIN 13.2 g/dL (12.0-16.0); IMMATURE GRAN ABSOLUTE AUTO 0.03 K/uL (0.00-0.05); IMMATURE GRAN PERCENT AUTO 0.3 % (0.0-0.4); LYMPHOCYTES ABSOLUTE AUTO 3.46 K/uL (1.00-4.80); LYMPHOCYTES PERCENT AUTO 33.4 % (24.0-44.0); MEAN CORPUSCULAR HGB CONC 33.2 g/dL (32.0-36.0); MEAN CORPUSCULAR VOLUME 90.5 fL (83.0-99.0); MEAN PLATELET VOLUME 9.1 fL (9.4-12.3); MONOCYTES ABSOLUTE AUTO 0.66 K/uL (0.00-0.80); MONOCYTES PERCENT AUTO 6.4 % (0.0-8.0); NEUTROPHILS PERCENT AUTO 57.9 % (41.0-71.0); PLATELET COUNT,PLT 235 K/uL (150-400); WHITE BLOOD CELL COUNT,WBC 10.36 K/uL (3.9-11.3)
[2024-02-09] MEDS: Sodium Chloride 0.9% 10 ML Syringe FLUSH PRN (02:39)
[2024-02-09] MEDS: Sodium Chloride 0.9% 2.5 ML Syringe FLUSH PRN (02:39)
[2024-02-09] MEDS: Sodium Chloride 0.9% 1,000 ML IV STA (03:00)
[2024-02-09 03:02] LABS: A/G RATIO 0.7 (0.9-1.6); ACETAMINOPHEN 3.1 ug/mL; ALBUMIN 2.5 g/dL (3.4-5.0); BILIRUBIN TOTAL 0.4 mg/dL (0.2-1.0); CALCIUM 7.8 mg/dL (8.5-10.1); CREATININE 1.1 mg/dL (0.6-1.0); EST CRCL DRUG DOSING (CG) 50.91 mL/min; PROTEIN TOTAL,TP 6.1 g/dL (6.4-8.2); SALICYLATE 0.9 mg/dL (0.0-20.0)
[2024-02-09 03:19] LABS: CORONAVIRUS COVID-19 NAA NEGATIVE (NEGATIVE); INFLUENZA A NAA NEGATIVE (NEGATIVE); INFLUENZA B NAA NEGATIVE (NEGATIVE); RESPIRATORY SYNCYTIAL VIR NAA NEGATIVE (NEGATIVE)
[2024-02-09 09:15] LABS: BASE EXCESS VENOUS -0.8 (-2.0-3.0); PH,VENOUS 7.32 (7.31-7.41)
[2024-02-09 09:27] LABS: AMPHETAMINES SCREEN, URINE NEGATIVE (CUTOFF=500); BARBITURATE SCREEN,URINE NEGATIVE (CUTOFF=200); BENZODIAZEPINES SCREEN,URINE NEGATIVE (CUTOFF=150); BUPRENORPHINE SCREEN,URINE NEGATIVE (CUTOFF=10); METHADONE SCREEN, URINE NEGATIVE (CUTOFF=200); METHAMPHETAMINES SCREEN, URINE NEGATIVE (CUTOFF=500); OXYCODONE SCREEN,URINE NEGATIVE (CUT0FF=100); PCP SCREEN,URINE NEGATIVE (CUTOFF=25); THC SCREEN,URINE 20 NG/ML NEGATIVE (CUTOFF=50)
[2024-02-09 09:50] LABS: BLOOD UREA NITROGEN,BUN 17 mg/dL (7.0-18.0); CALCIUM 7.9 mg/dL (8.5-10.1); CARBON DIOXIDE,CO2 25.7 mmol/L (21.0-32.0); CHLORIDE,CL 102 mmol/L (98-107); CREATININE 1.1 mg/dL (0.6-1.0); EST CRCL DRUG DOSING (CG) 50.91 mL/min; GLUCOSE RANDOM 130 mg/dL (74-106); SODIUM,NA 138 mmol/L (136-145)
[2024-02-09 09:55] LABS: ESTIMATED GFR 58 mL/min (>60)
[2024-02-09 18:23] VITALS: BP 112/74; PULSE 78
== END 2024-02-09 14:38 | disposition home or self-care (01) ==
LOC: MW.ED 02:23
DX: T43.591A Poisoning by other antipsychotics and neuroleptics, accidental (unintentional), initial encounter (principal); Z75.8 Other problems related to medical facilities and other health care; Z79.899 Other long term (current) drug therapy; Z88.2 Allergy status to sulfonamides
CPT/HCPCS: 0241U; 36415; 80048; 80053; 80143; 80179; 80305; 82140; 82803; 84484; 85025; 93005; 96360; 99284; J3490; J7030